=== PATIENT | female | born 1970 | race Two or more races ===

== ENCOUNTER 2024-02-23 13:04 | Outpatient (REF) | payer MEDICAID, SELFPAY ==
[2024-02-23 15:32] LABS: MANUAL DIFF FLAG NO
[2024-02-23 17:08] LABS: Basophils Percent Auto 0.4 % (0-2); Eosinophils Absolute Auto 0.1 X10*3/uL (0.0-0.4); Eosinophils Percent Auto 1.6 % (0-4); Hematocrit 40.2 % (37.0-47.0); Hemoglobin 12.9 g/dl (12.0-16.0); Imm Gran Abs Auto 0.04 X10*3/uL (0.00-0.03); Imm Gran Pct Auto 0.5 % (0.0-0.4); Lymphocytes Absolute Auto 2.5 X10*3/uL (1.2-4.9); Lymphocytes Percent Auto 33.8 % (20-40); Mean Corpuscular HGB Conc 32.1 g/dl (31.0-35.0); Mean Corpuscular Hemoglobin 28.2 pg (27.0-33.0); Mean Corpuscular Volume 87.8 fL (80.0-98.0); Mean Platelet Volume 11.5 fL (9.4-12.3); Monocytes Absolute Auto 0.5 X10*3/uL (0.1-1.2); Monocytes Percent Auto 6.8 % (2-11); Neutrophils Absolute Auto 4.3 x10*3/uL (2.0-8.3); Neutrophils Percent Auto 56.9 % (45-73); Platelet Count 226 X10*3/uL (160-400); Red Blood Count 4.58 X10*6/uL (4.20-5.50); Red Cell Distribution Width 14.8 % (11.0-16.0); White Blood Count 7.5 X10*3/uL (4.8-10.8)
[2024-02-23 17:25] LABS: Appearance Urine Clear; Color Urine Yellow; Glucose Urine UA Negative (Negative); Leukocyte Esterase Urine Trace (Negative); Nitrite Urine Negative (Negative); PH 5.5 (5.0-9.0); UMIC TRIGGER UA YES; Urine Blood Trace (Negative); Urine Ketones Negative (Negative); Urine Protein Negative (Neg-Trace)
[2024-02-23 17:29] LABS: Bacteria Urine None Seen (None Seen); Hyaline Casts Urine 0-2 /LPF (0-2); RBC Urine 0-2 /HPF (0-2); Squamous Epithelial Cell Urine 0-2 /HPF (0-2); WBC Urine 0-5 /HPF (0-5)
[2024-02-23 17:52] LABS: Alanine Aminotransferase 16 U/L (0-31); Aspartate Amino Transferase 20 U/L (5-31); C Reactive Protein 0.17 mg/dL (< or = 0.50); Estimated Glomerular Filt Rate > 60
[2024-02-23 18:09] LABS: Thyroid Stimulating Hormone 0.12 uIU/mL (0.32-4.0)
[2024-02-23 18:12] LABS: Rheumatoid Factor < 13.0 IU/mL (<15.0)
[2024-02-23 18:27] LABS: Erythrocyte Sedimentation Rate 20 MM/HR (0-20)
[2024-02-24 22:13] LABS: Anti DNA DS Antibody 1 IU/mL; JO 1 Antibody <1.0 NEG AI (<1.0 NEG); SM/Ribonucleoprotein Ab <1.0 NEG AI (<1.0 NEG); Smith Protein <1.0 NEG AI (<1.0 NEG)
[2024-02-25 08:18] LABS: Complement C3 148 mg/dL (83-193)
[2024-02-25 14:43] LABS: Anti Nuclear Antibody Screen NEGATIVE (NEGATIVE)
[2024-02-26 20:02] LABS: Cyclic Citrullinated Peptide <16 UNITS
== END 2024-02-23 13:05 | disposition home or self-care (01) ==
LOC: HO.LAB 13:04
PROVIDERS: PCP Physician Assistant; Visit Provider Internal Medicine Rheumatology
DX: M19.90 Unspecified osteoarthritis, unspecified site (principal); M33.13 Other dermatomyositis without myopathy; Z79.899 Other long term (current) drug therapy; Z79.60 Long term (current) use of unspecified immunomodulators and immunosuppressants
CPT/HCPCS: 36415; 81001; 82085; 82550; 82565; 84443; 84450; 84460; 85025; 85652; 86038; 86140; 86160; 86200; 86225; 86235; 86431

== ENCOUNTER 2024-02-23 13:04 | Outpatient (AMB) | payer MEDICAID, SELFPAY ==
[2024-02-23 13:15] VITALS: BP 124/78; PULSE 89; O2SAT 99; BMI 43.4
--- NOTE | 2024-02-23 13:15 | MHC.OFFVIS ---
Vital Signs 02/23/24 13:15 Height 5 ft 2 in Weight 237 lb 3.478 oz BMI 43.4 BP 124/78 Blood Pressure Location Lt brachial Position Sitting Pulse 89 Pulse Source Pulse Oximeter Pulse Oximetry (%) 99 Oxygen Delivery Method Room Air Intake Visit Reasons: Lupus Intake Note: Patient presents for follow up on lupus today,she is requesting mycophenalate, and hydroxychloroquine. Allergies demarol Allergy (Severe, Uncoded 02/23/24 13:18) Anaphylaxis HPI HPI Lupus: Details: She does not feel well in the last 6 months. Pain in back and left shoulder is not controlled. She is not getting relief with tylenol and ibuprofen 400mg-600mg. She is taking tramadol from the streets with benefit. She received bilateral trochanteric bursitis bilateral 3 months ago. She feels weak. She is having pain in her left shoulder with difficulty raising her arm. PCP gave patient course of prednisone 7 days. She is having dysphagia to solids. She is able to drink water fine. She has to drink a lot after she eats due to dysphagia. She is having rectal bleeding. PCPs working on scheduling colonoscopy. No fevers, new rash. She continues to have rash on her face. Denies urinary symptoms, dyspnea or Raynaud's phenomenon. She has been experiencing weakness in her arms and legs. She has gained weight. Review of Systems Const All systems reviewed & are unremarkable except as noted in HPI and below Physical Exam Vital Signs: Last Vital Signs Pulse 89 02/23/24 13:15 BP 124/78 02/23/24 13:15 Pulse Ox 99 02/23/24 13:15 Oxygen Delivery Method Room Air 02/23/24 13:15 BMI result Body Mass Index 43.4 Const Other: General: Comfortable CVS: RRR Respiratory: clear to auscultation bilaterally. Good respiratory effort Skin: No lesions seen MSK: Synovitis of bilateral 3rd MCPs, right 2nd and 3rd PIP. All MCPs and PIP knees are tender. Bilateral shoulder tenderness with limited abduction past 90 degrees of left shoulder. Left trochanteric bursa tenderness found. No tenderness of bilateral knees. She has weakness in upper extremities with 3/5 power shoulder abduction and adduction, elbow flexion and extension, left hip flexor. Rest of lower extremity is 5/5 power. Office Procedures AMB Joint Injection/Aspiration Joint Injection/Aspiration Details: Left trochanteric bursa Prep: site was prepped using aseptic technique Injected: 40 mg of, Kenalog, with 1 mL of and 1% plain lidocaine Procedure: The patient tolerated the procedure well Coding 30867 - Large joint Procedure code (CPT) selection complete Office Meds Kenalog 40 mg/mL suspension for injection Performing Provider: Mati Shields MD Performing Location: [facility] [place] [facility] Administered by: Mati Shields MD on 02/23/24 14:11 Dose Route Admin Location Dispensed Lot Number Expiration Date [facility] Protein Purification Scientist 40 mg intrabursal 1 mL [id number] [employer] lidocaine (PF) 10 mg/mL (1 %) injection solution Performing Provider: Mati Shields MD Performing Location: [facility] [place] [facility] Administered by: Mati Shields MD on 02/23/24 14:11 Dose Route Admin Location Dispensed Lot Number Expiration Date [facility] Protein Purification Scientist 10 mg Infiltration 2 mL [id number] [facility] Assessment & Plan Assessment & Plan (1) Dermatomyositis: Comment: Cutaneous manifestation of dermatomyositis is not controlled on therapy with hydroxychloroquine and mycophenolate mofetil. She is requiring multiple prednisone courses to control her disease. She has dysphagia to solids. I will obtain barium swallow to evaluate for esophageal dysmotility that is associated with dermatomyositis. She also has developed inflammatory arthritis involving small joints in her hands. In the past she had initial diagnosis of lupus. I will order labs to evaluate for lupus disease activity, antibodies to assess for inflammatory arthritis, muscle enzymes and thyroid function to obtain full picture of her disease process contributing to recurrent cutaneous manifestations, dysphagia, weakness, inflammatory arthritis, and weight gain. Code(s): M33.13 - Other dermatomyositis without myopathy Category: Medical Plan: Requesting medical records from [facility]. I will need to confirm her medication doses as she is currently being under dosed with mycophenolate and hydroxychloroquine. There is room to increase dose. Continue hydroxychloroquine 200 mg daily Continue mycophenolate mofetil 500 mg twice a day She will return tomorrow for a left shoulder cortisone injection after obtaining x-ray at [facility] today Labs for disease and drug monitoring ordered Barium swallow ordered Request records from [facility] (2) Other terminal gauger (current) drug therapy: Code(s): Z79.899 - Other alf (current) drug therapy Category: Medical Plan: See above (3) Inflammatory arthritis: Comment: New onset. I have initiated workup for inflammatory arthritis with labs. Code(s): M19.90 - Unspecified osteoarthritis, unspecified site Category: Medical Plan: Labs ordered (4) Trochanteric bursitis, left hip: Comment: Left trochanteric bursitis recurrent Code(s): M70.62 - Trochanteric bursitis, left hip Category: Medical Plan: Left trochanteric bursa cortisone injection given this visit (5) Left shoulder pain: Comment: Chronic. I suspect chronic rotator cuff tendinopathy. I will obtain x-ray for further evaluation for joint pathology contributing. Code(s): M25.512 - Pain in left shoulder Category: Medical Qualifiers: Chronicity: chronic Qualified Code(s): M25.512 - Pain in left shoulder; G89.29 - Other chronic pain Plan: Left shoulder x-ray ordered at [facility] Return to clinic tomorrow for left shoulder cortisone injection I advised her not to obtain any medication/drug from the streets. Orders: Orders Complement C4 Today M33.13 - Other dermatomyositis without myopathy, Z79.899 - Other terminal gauger (current) drug therapy C Reactive Protein Today M33.13 - Other dermatomyositis without myopathy, Z79.899 - Other terminal gauger (current) drug therapy Alanine Aminotransferase Today Z79.60 - long term (current) use of unspecified immunomodulators and immunosuppressants Aspartate Amino Transferase Today Z79.60 - shelter (current) use of unspecified immunomodulators and immunosuppressants Complete Blood Count Auto Diff Today Z79.60 - shelter (current) use of unspecified immunomodulators and immunosuppressants Creatinine Today Z79.60 - long term (current) use of unspecified immunomodulators and immunosuppressants Creatine Kinase Total Today M33.13 - Other dermatomyositis without myopathy, Z79.899 - Other terminal gauger (current) drug therapy XR shoulder LT min 2V Today Z79.899 - Other alf (current) drug therapy [place] barium swallow Today M33.13 - Other dermatomyositis without myopathy Anti Extractable Nuclear Ag Today M19.90 - Unspecified osteoarthritis, unspecified site, M33.13 - Other dermatomyositis without myopathy Cyclic Citrullinated Peptide Today M19.90 - Unspecified osteoarthritis, unspecified site SHELBY 1 Antibody Today M33.13 - Other dermatomyositis without myopathy Rheumatoid Factor Today M19.90 - Unspecified osteoarthritis, unspecified site ALONSO Reflex Titer and Pattern Today M19.90 - Unspecified osteoarthritis, unspecified site, M33.13 - Other dermatomyositis without myopathy AMB Joint Injection/Aspiration Today M70.62 - Trochanteric bursitis, left hip Complement C3 Today M33.13 - Other dermatomyositis without myopathy, Z79.899 - Other terminal gauger (current) drug therapy Erythrocyte Sedimentation Rate Today M33. - Other dermatomyositis without myopathy, Z79.899 - Other terminal gauger (current) drug therapy Thyroid Stimulating Hormone Today M33. - Other dermatomyositis without myopathy, Z79.899 - Other terminal gauger (current) drug therapy Aldolase Today M33. - Other dermatomyositis without myopathy, Z79.899 - Other terminal gauger (current) drug therapy Anti DNA DS Antibody Today M33. - Other dermatomyositis without myopathy UA w Microscopic Today M33. - Other dermatomyositis without myopathy, Z79.899 - Other terminal gauger (current) drug therapy Coding Level of Care Code Est Pt Level 4 (55863) Complex EM visit Add On G2211 Diagnoses Dermatomyositis M33.13 Other terminal gauger (current) drug therapy Z79.899 Inflammatory arthritis M19.90 Trochanteric bursitis, left hip M70.62 Chronic left shoulder pain M25.512; G89.29 Chronicity: chronic CPT Codes Coding - 03096 Large joint: 91061 - Large joint ([id number])
== END 2024-02-23 14:00 | disposition home or self-care (01) ==
PROVIDERS: Visit Provider Internal Medicine Rheumatology
DX: M33.13 Other dermatomyositis without myopathy (principal); Z79.899 Other long term (current) drug therapy; M19.90 Unspecified osteoarthritis, unspecified site; M70.62 Trochanteric bursitis, left hip; M25.512 Pain in left shoulder; G89.29 Other chronic pain
CPT/HCPCS: 20610; 99214

== ENCOUNTER 2024-02-24 14:28 | Outpatient (AMB) | payer MEDICAID, SELFPAY ==
[2024-02-24 13:45] VITALS: BP 140/80; PULSE 93; O2SAT 99; BMI 43.3
--- NOTE | 2024-02-24 13:45 | A.OFFVIS_ITS ---
Vital Signs 02/24/24 13:45 Height 5 ft 2 in Weight 237 lb BMI 43.3 BP 140/80 H Blood Pressure Location Lt brachial Position Sitting Pulse 93 Pulse Source Pulse Oximeter Pulse Oximetry (%) 99 Oxygen Delivery Method Room Air Intake Visit Reasons: Shoulder Injection Intake Note: Patient presents for left shoulder injection. Allergies demarol Allergy (Severe, Uncoded 02/24/24 13:47) Anaphylaxis HPI HPI Shoulder Injection: Details: Persistent left shoulder pain. SHe continues to have lower back pain. PCP prescribed ibuprofen, cyclobenzaprine and tylenol without benefit. She has urinary frequency. Denies fevers. Review of Systems Const All systems reviewed & are unremarkable except as noted in HPI and below Physical Exam Vital Signs: Last Vital Signs Pulse 93 02/24/24 13:45 BP 140/80 H 02/24/24 13:45 Pulse Ox 99 02/24/24 13:45 Oxygen Delivery Method Room Air 02/24/24 13:45 BMI result Body Mass Index 43.3 Const Other: General: Comfortable CVS: RRR Respiratory: clear to auscultation bilaterally. Good respiratory effort Skin: No lesions seen MSK: Bilateral shoulder tenderness with limited abduction past 90 degrees of left shoulder. Tender lumbar spinous process and paraspinal muscles. Office Procedures AMB Joint Injection/Aspiration Joint Injection/Aspiration Details: left shoulder Prep: site was prepped using aseptic technique Injected: 40 mg of, Kenalog, with 1 mL of and 1% plain lidocaine Procedure: The patient tolerated the procedure well Coding 07016 - Large joint Procedure code (CPT) selection complete Office Meds Kenalog 40 mg/mL suspension for injection Performing Provider: Mati Shields MD Performing Location: [facility] [place] [facility] Administered by: Mati Shields MD on 02/24/24 16:18 Dose Route Admin Location Dispensed Lot Number Expiration Date [facility] Design Project Manager 40 mg intra-articular 1 mL [id number] [employer] lidocaine (PF) 10 mg/mL (1 %) injection solution Performing Provider: Mati Shields MD Performing Location: [facility] [place] [facility] Administered by: Mati Shields MD on 02/24/24 16:18 Dose Route Admin Location Dispensed Lot Number Expiration Date [facility] Design Project Manager 10 mg Infiltration 2 mL [id number] [facility] Assessment & Plan Assessment & Plan (1) Left shoulder pain: Comment: Chronic likely due to rotator cuff tendinopathy. X-ray revealed mild AC joint arthritis. Code(s): M25.512 - Pain in left shoulder Category: Medical Qualifiers: Chronicity: chronic Qualified Code(s): M25.512 - Pain in left shoulder; G89.29 - Other chronic pain Plan: left shoulder cortisone injection given this visit (2) Urinary frequency: Comment: UA reveals trace hematuria and +leukocyte esterase concerning for possible UTI. Code(s): R35.0 - Frequency of micturition Category: Medical Plan: urine culture ordered (3) Chronic low back pain without sciatica: Comment: Due to myofascial strain Code(s): M54.50 - Low back pain, unspecified; G89.29 - Other chronic pain Category: Medical Qualifiers: Back pain laterality: bilateral Qualified Code(s): M54.50 - Low back pain, unspecified; G89.29 - Other chronic pain Plan: Baclofen 5mg qhs PRN prescribed (4) Inflammatory arthritis: Comment: New onset. I have initiated workup for inflammatory arthritis with labs. Code(s): M19.90 - Unspecified osteoarthritis, unspecified site Category: Medical Plan: lab results pending (5) Abnormal thyroid stimulating hormone (TSH) level: Comment: on recent labs TSH is low 0.12. She is on levothyroxine. Code(s): R79.89 - Other specified abnormal findings of blood chemistry Category: Medical Plan: Follow-up with PCP for dose adjustment of levothyroxin Orders: Orders Urine Culture Today R35.0 - Frequency of micturition AMB Joint Injection/Aspiration Today G89.29 - Other chronic pain, M25.512 - Pain in left shoulder Medications: New baclofen 5 mg PO BEDTIME PRN 30 tabs 2RF muscle spasm Coding Level of Care Code Est Pt Level 4 (20838) Complex EM visit Add On G2211 Diagnoses Chronic left shoulder pain M25.512; G89.29 Chronicity: chronic Urinary frequency R35.0 Chronic bilateral low back pain without sciatica M54.50; G89.29 Back pain laterality: bilateral Inflammatory arthritis M19.90 Abnormal thyroid stimulating hormone (TSH) level R79.89 CPT Codes Coding - 56411 Large joint: 47663 - Large joint ([id number])
== END 2024-02-24 15:32 | disposition home or self-care (01) ==
LOC: HO.RHES 14:28
PROVIDERS: PCP Physician Assistant; Visit Provider Internal Medicine Rheumatology
DX: M19.012 Primary osteoarthritis, left shoulder (principal); G89.29 Other chronic pain; R35.0 Frequency of micturition; M54.50 Low back pain, unspecified; R79.89 Other specified abnormal findings of blood chemistry
CPT/HCPCS: 20610; 99214

== ENCOUNTER → 2024-02-24 14:28 | Outpatient (BNVA) | payer MEDICAID, SELFPAY | PROVIDERS: PCP Physician Assistant; Visit Provider Internal Medicine Rheumatology | DX: M25.512 Pain in left shoulder (principal); G89.29 Other chronic pain; M54.50 Low back pain, unspecified; M19.90 Unspecified osteoarthritis, unspecified site; R79.89 Other specified abnormal findings of blood chemistry; R35.0 Frequency of micturition | CPT/HCPCS: 20610; 99212; J2003; J3300 ==

== ENCOUNTER 2024-02-25 13:04 | Outpatient (REF) | payer MEDICAID, SELFPAY | END 2024-02-25 13:05 | disposition home or self-care (01) | LOC: HO.HMGCLDS 13:04 | PROVIDERS: PCP Physician Assistant; Visit Provider Internal Medicine Rheumatology | DX: R35.0 Frequency of micturition (principal) | CPT/HCPCS: 87086 ==

== ENCOUNTER 2024-05-24 13:09 | Outpatient (REF) | payer MEDICAID, SELFPAY ==
[2024-05-24 18:50] LABS: MANUAL DIFF FLAG NO
[2024-05-24 19:06] LABS: Basophils Percent Auto 0.6 % (0-2); Eosinophils Absolute Auto 0.1 X10*3/uL (0.0-0.4); Eosinophils Percent Auto 2.6 % (0-4); Hematocrit 40.3 % (37.0-47.0); Imm Gran Abs Auto 0.01 X10*3/uL (0.00-0.03); Imm Gran Pct Auto 0.2 % (0.0-0.4); Lymphocytes Absolute Auto 2.3 X10*3/uL (1.2-4.9); Lymphocytes Percent Auto 42.8 % (20-40); Mean Corpuscular HGB Conc 32.3 g/dl (31.0-35.0); Mean Corpuscular Volume 86.9 fL (80.0-98.0); Mean Platelet Volume 12.9 fL (9.4-12.3); Monocytes Absolute Auto 0.5 X10*3/uL (0.1-1.2); Monocytes Percent Auto 8.6 % (2-11); Neutrophils Absolute Auto 2.4 x10*3/uL (2.0-8.3); Neutrophils Percent Auto 45.2 % (45-73); Platelet Count 173 X10*3/uL (160-400); Red Blood Count 4.64 X10*6/uL (4.20-5.50); Red Cell Distribution Width 14.6 % (11.0-16.0); White Blood Count 5.4 X10*3/uL (4.8-10.8)
[2024-05-24 19:19] LABS: Alanine Aminotransferase 35 U/L (0-31); Aspartate Amino Transferase 28 U/L (5-31); Estimated Glomerular Filt Rate > 60
[2024-05-24 19:59] LABS: Erythrocyte Sedimentation Rate 14 MM/HR (0-20)
[2024-05-25 08:45] LABS: HBS Num1 0.55 mIU/mL (0-7.99); HBc Num1 0.09 S/CO (0.00-0.79); HBsAGNum1 0.31 S/CO (0.00-0.99); Hepatitis B Core Antibody Nonreactive (Nonreactive); Hepatitis B Surface Antigen Negative (Negative); ~HepC Num1 0.11 S/CO (0.00-0.79); ~Hepatitis B Surface Antibody NONREACTIVE (Nonreactive); ~Hepatitis C Antibody Nonreactive (Nonreactive)
[2024-05-27 06:19] LABS: TS Negative Control Passed; TS Panel A 0; TS Panel B 0; TS Positive Control Passed; TSpotTB Negative (Negative)
[2024-05-29 15:49] LABS: Aldolase 4.8 U/L (<=8.1)
== END 2024-05-24 13:10 | disposition home or self-care (01) ==
LOC: HO.HKASLDS 13:09
PROVIDERS: PCP Physician Assistant; Visit Provider Internal Medicine Rheumatology
DX: M25.512 Pain in left shoulder (principal); G89.29 Other chronic pain; Z79.60 Long term (current) use of unspecified immunomodulators and immunosuppressants; Z79.899 Other long term (current) drug therapy; M33.13 Other dermatomyositis without myopathy; M19.90 Unspecified osteoarthritis, unspecified site; Z11.1 Encounter for screening for respiratory tuberculosis
CPT/HCPCS: 20610; 36415; 82085; 82550; 82565; 84450; 84460; 85025; 85652; 86481; 86704; 86706; 86803; 87340; 99212; J2003; J3300

== ENCOUNTER 2024-05-24 13:09 | Outpatient (AMB) | payer MEDICAID, SELFPAY ==
--- NOTE | 2024-05-24 13:12 | MHC.OFFVIS ---
Vital Signs 05/24/24 13:15 Height 5 ft 2 in Weight 229 lb 8.019 oz BMI 42.0 BP 130/80 Blood Pressure Location Rt brachial Position Sitting Pulse 84 Pulse Source Pulse Oximeter Pulse Oximetry (%) 99 Oxygen Delivery Method Room Air Intake Visit Reasons: Follow Up 3mo Intake Note: Patient presents for left shoulder injection. Allergies demarol Allergy (Severe, Uncoded 02/24/24 13:47) Anaphylaxis HPI HPI Follow Up 3mo: Details: Shoulder pain return to few days ago. She had benefit with last cortisone injection. Rash has improved. She continues to have pruritus on her face. Joint pain in her hands and extremities has improved. She reports compliance on hydroxychloroquine and mycophenolate mofetil. At the [facility] in 2023 she was started on methotrexate. Methotrexate replace mycophenolate mofetil. She was on it for 2 months. Prescription was not further refilled for patient during my transition to [facility] [facility]. She reports that she tolerated methotrexate well. [facility] Medical History Recurrent dislocation of right upper arm Review of Systems Const All systems reviewed & are unremarkable except as noted in HPI and below Physical Exam Vital Signs: Last Vital Signs Pulse 84 05/24/24 13:15 BP 130/80 05/24/24 13:15 Pulse Ox 99 05/24/24 13:15 Oxygen Delivery Method Room Air 05/24/24 13:15 BMI result Body Mass Index 42.0 Const Other: General: Comfortable CVS: RRR Respiratory: clear to auscultation bilaterally. Good respiratory effort Skin: No lesions seen MSK: Bilateral shoulder tenderness with limited abduction past 160 degrees of left shoulder. Internal and external rotation of left shoulder is painful but full. Tender PIP bilaterally. No synovitis. Office Procedures AMB Joint Injection/Aspiration Joint Injection/Aspiration Details: Left shoulder joint Prep: site was prepped using aseptic technique Injected: 40 mg of, Kenalog, with 1 mL of and 1% plain lidocaine Procedure: The patient tolerated the procedure well. Postprocedure protocol was discussed with patient. Coding 58885 - Large joint Procedure code (CPT) selection complete Office Meds lidocaine (PF) 10 mg/mL (1 %) injection solution Performing Provider: Mati Shields MD Performing Location: [facility] [place] [facility] Administered by: Mati Shields MD on 05/25/24 21:50 Dose Route Admin Location Dispensed Lot Number Expiration Date [facility][NOTE 3] Optical Scientist 10 mg Infiltration 2 mL [id number] [employer] Kenalog 40 mg/mL suspension for injection Performing Provider: Mati Shields MD Performing Location: [facility] [place] [facility] Administered by: Mati Shields MD on 05/25/24 21:50 Dose Route Admin Location Dispensed Lot Number Expiration Date [facility][NOTE 3] Optical Scientist 40 mg intra-articular 1 mL [id number] [employer] Assessment & Plan Assessment & Plan (1) Dermatomyositis: Comment: Cutaneous manifestation of dermatomyositis is not completely controlled on therapy with hydroxychloroquine and mycophenolate mofetil. She continues to have pruritus and rash on her face. Inflammatory arthritis in her hands has resolved. She reports compliance on her regimen of hydroxychloroquine and mycophenolate mofetil. In 2023 she was on methotrexate and hydroxychloroquine combination. But she was only on methotrexate for 2 months. Not enough time to assess full effectiveness. She is willing to try methotrexate again. Code(s): M33.13 - Other dermatomyositis without myopathy Category: Medical Plan: Labs for disease and drug monitoring ordered After lab results are back I will send prescription for methotrexate 15 mg once weekly and folic acid 1 mg daily. Methotrexate and folic acid we will replace mycophenolate mofetil. Continue hydroxychloroquine 200 mg twice a day as it is better tolerated for patient. Eye exam OCT 04/2022. No visual field test. I am requesting patient call [facility] for eye exam for visual field testing and OCT exam. Requesting medical records from [facility] Return to clinic in 3 months (2) Inflammatory arthritis: Comment: New onset 02/2024. Resolved on current exam. Labs revealed negative ALONSO, anti CCP antibody, rheumatoid factor, lupus specific markers anti Joseph antibody, double-stranded DNA and complements. Code(s): M19.90 - Unspecified osteoarthritis, unspecified site Category: Medical Plan: I will monitor clinically (3) Left shoulder pain: Comment: Chronic likely due to rotator cuff tendinopathy. X-ray revealed mild AC joint arthritis. Code(s): M25.512 - Pain in left shoulder Category: Medical Qualifiers: Chronicity: chronic Qualified Code(s): M25.512 - Pain in left shoulder; G89.29 - Other chronic pain Plan: Patient received right shoulder cortisone injection I recommended that she call office when shoulder pain returns to start physical therapy Return to clinic in 3 months Orders: Orders Aspartate Amino Transferase 05/24/24 Z79.60 - continuous churn buttermaker (current) use of unspecified immunomodulators and immunosuppressants Erythrocyte Sedimentation Rate 05/24/24 Z79.899 - Other detention (current) drug therapy Aldolase 05/24/24 M19.90 - Unspecified osteoarthritis, unspecified site, M33.13 - Other dermatomyositis without myopathy Hepatitis B,C Profile 05/24/24 M33.13 - Other dermatomyositis without myopathy Alanine Aminotransferase 1 Month Z79.60 - halfway (current) use of unspecified immunomodulators and immunosuppressants Aspartate Amino Transferase 1 Month Z79.60 - continuous churn buttermaker (current) use of unspecified immunomodulators and immunosuppressants Complete Blood Count Auto Diff 1 Month Z79.60 - halfway (current) use of unspecified immunomodulators and immunosuppressants Alanine Aminotransferase 05/24/24 Z79.60 - halfway (current) use of unspecified immunomodulators and immunosuppressants Complete Blood Count Auto Diff 05/24/24 Z79.60 - continuous churn buttermaker (current) use of unspecified immunomodulators and immunosuppressants Creatinine 05/24/24 Z79.60 - halfway (current) use of unspecified immunomodulators and immunosuppressants Creatine Kinase Total 05/24/24 M33.13 - Other dermatomyositis without myopathy T Spot TB 05/24/24 M33.13 - Other dermatomyositis without myopathy Creatinine 1 Month Z79.60 - continuous churn buttermaker (current) use of unspecified immunomodulators and immunosuppressants AMB Joint Injection/Aspiration 05/24/24 G89.29 - Other chronic pain, M25.512 - Pain in left shoulder Coding Level of Care Code Est Pt Level 4 (11561) Complex EM visit Add On G2211 Diagnoses Dermatomyositis M33.13 Inflammatory arthritis M19.90 Chronic left shoulder pain M25.512; G89.29 Chronicity: chronic CPT Codes Coding - 27433 Large joint: 71400 - Large joint ([id number])
[2024-05-24 13:15] VITALS: BP 130/80; PULSE 84; O2SAT 99; BMI 42.0
== END 2024-05-24 13:43 | disposition home or self-care (01) ==
LOC: HO.RHES 13:10
PROVIDERS: PCP Physician Assistant; Visit Provider Internal Medicine Rheumatology
DX: M33.13 Other dermatomyositis without myopathy (principal); M19.012 Primary osteoarthritis, left shoulder; M25.512 Pain in left shoulder; G89.29 Other chronic pain
CPT/HCPCS: 20610; 99214

== ENCOUNTER 2024-06-28 13:31 | Outpatient (REF) | payer MEDICAID, SELFPAY ==
--- OUTSIDE RECORDS SUMMARY | 2024-06-28 16:00 | XMS_ITS | Clinical Summary ---
Author Organization [facility] Address [address] [place] [phone] Care Team Providers Care Human Resources Operations Specialist Name Role Phone Ivette Resendez Primary Care Provider [phone] Surgical History Surgery Date Site/Laterality Comments CHOLECYSTECTOMY PROCEDURE: [place] LAPAROSCOPY SURG CHOLECYSTECTOMY Medical History Medical History Date Comments Hypothyroidism DX:Hypothyroidis m Migraine with aura, not intractable DX:Migraine with aura, not intractable Systemic lupus erythematosus (SLE) in adult (CMS/HCC V24, CMS/HCC V28) 02/13/2017 DX:Systemic lupus brittney thematosus (SLE) in adult (HCC) Shoulder joint painful on mo vement, left 02/13/2017 DX:Shoulder joint painful on movement, left Anxiety DX:Anxiety Depression DX:Depression Family History Medical History Relation Name Comments Breast cancer Aunt m 50 mother's siste r, dx'd in her 60's Heart attack Father DMII, HTN Hypertension Mother DMII Other: myasenia gravis Son Cancer of Small Bowel Neg Hx Colon cancer Neg Hx Kidney cancer Neg Hx Ovarian cancer Neg Hx Pancreatic cancer Neg Hx Uterine cancer Neg Hx Relation Name Status Comments Aunt m 50 Father Mother Alive Son Social History Tobacco Use Types Packs/Day Years Used Date Smoking Tobacco: Former Smokeless Tobacco: Never Alcohol Use Standard Drinks/Week Comments No 0 (1 standard drink = 0.6 oz pur e alcohol) Comments Unknown Sex and Gender Information Value Date Recorded Sex Assigned at Not on file Legal Sex Female 5:36 AM EST Gender Identity Not on file Sexual Orientation Not on file Obstetrics History Plan of Treatment Health Maintenance Due Date Last Done Comments COVID-19 Vaccine (#1) 1973 Hepatitis B Vaccines (1 of 3 - 19+ 3-dose series) 1987 Pneumococcal Vaccine: 50+ Years (1 of 2 - PCV) 1987 Pneumococcal Vaccine: Pediatrics (0 to 5 Years) and At-Risk Patients (6 to 64 Years) (1 of 2 - PCV) 1987 Zoster Vaccines (1 of 2) 1987 Colorectal Cancer Screening: Colonoscopy 02/15/2022 Depression Screening 02/15/2022 HIV Screening 02/15/2022 Hepatitis C Screening 02/15/2022 Social Influencers of Health Screening 02/15/2022 Cervical Cancer Screening: P ap Smear 06/12/2023 06/11/2020 Breast Cancer Screening 11/09/2023 11/09/19 22, 07/20/2020 DTaP,Tdap,and Td Vaccines (2 - Td or Tdap) 10/19/2024 10/19/2014 Influenza Vaccine (Season Ended) 2024 HIB Vaccines Aged Out No longer eligi ble based on patient's age to complete this topic HPV Vaccines Aged Out No longer eligi ble based on patient's age to complete this topic Hepatitis A Vaccines Aged Out No long er eligible based on patient's age to complete this topic IPV Vaccines Aged Out No longer eligi ble based on patient's age to complete this topic MMR Vaccines Aged Out No longer eligi ble based on patient's age to complete this topic Meningococcal ACWY Vaccine Aged Out N o longer eligible based on patient's age to complete this topic Meningococcal B Vaccine Aged Out No l onger eligible based on patient's age to complete this topic RSV Immunization Patients Under 20 months Aged Out No longer eligible b ased on patient's age to complete this topic Varicella Vaccines Aged Out No longer eligible based on patient's age to complete this topic Procedures Procedure Name Priority Date/Time Associated Diagnosis Comments SCREENING MAMMOGRAPHY BI 2-VIEW BREAST INC CAD Routine 11/08/2021 3:39 PM EDT Encounter for screening mammogram for malignant neoplasm of breast PAP SMEAR Routine 06/11/2020 from Last 3 Months or Most Recently Relevant to Health Maintenance Results * SCREENING MAMMOGRAPHY BI 2-VIEW BREAST INC CAD (11/08/2021 3:39 PM EDT) Anatomical Region Laterality Modality Radiographic Pamela ging 07/20/2020 3:57 PM EDT Narrative 11/12/2021 9:32 AM EDT This is a summary report. The complete report is available in the patient's medical record. If you cannot access the medical record, please contact the sending organization for a detailed fax or copy. Exam: Screening mammogram Findings: Digital bilateral full-field screening mammography is performed with tomosynthesis and interpreted with the aid of computer-aided detection. ??Comparison is made with 07/20/2020. Breast parenchyma is composed of scattered fibroglandular densities. ??No new suspicious mass, architectural distortion, or suspicious calcifications. Impression: No mammographic evidence of malignancy. BI-RADS 1 - negative Procedure Note Marianne Simental MD - 02/25/2022 This is a summary report. The complete report is available in thepatient's medical record. If you cannot access the medical record, pleasecontact the sending organization for a detailed fax or copy. Exam: Screening mammogram Findings: Digital bilateral full-field screening mammography is performedwith tomosynthesis and interpreted with the aid of computer-aideddetection. Comparison is made with 07/20/2020. Breast parenchyma is composed of scattered fibroglandular densities. Nonew suspicious mass, architectural distortion, or suspiciouscalcifications. Impression: No mammographic evidence of malignancy. BI-RADS 1 - negative Derrell Luna DO IMG XR PROCEDURES Final Resul t * Pap smear (06/11/2020) 06/11/2020 Narrative HISTORICAL TESTING LAB RESULTING AGENCY - 06/18/2020 2:05 PM EDT [id number] THINPREP PAP, IMAGED: NEGATIVE FOR SQUAMOUS INTRAEPITHELIAL LESION AND MALIGNANCY . REACTIVE CELLULAR CHANGES. ENDOMETRIAL CELLS ARE PRESENT. ALEX KEMP , CT(ASCP) (CASE SCREENED 06 14 2020) KAY DU M.D. , PATHOLOGIST (CASE ELECTRONICALLY SIGNED 06 15 2020) RESULT OF APTIMA HIGH RISK HPV ASSAY: HIGH RISK HPV: ??POSITIVE (SEROTYPES 16,18,31,33,35,39,45,51,52,56,58,59,66,68) RESULTS OF APTIMA HPV 16 AND 18/45 GENOTYPE ASSAY: HPV 16: ??NEGATIVE HPV 18/45: ??NEGATIVE COMPLETED ON 2020-06-14 ADEQUACY: SATISFACTORY ENDOCERVICAL/TRANSFORMATION ZONE COMPONENT ABSENT. SOURCE: THINPREP PAP HPV ANY DX: ??REFLEX 16 AND 18, CERVICAL, IMAGED CLINICAL INFORMATION: HPV ANY DIAGNOSIS. POS 2019 LSIL, BX NEG, LMP 05/11/20, Z12.4 us [facility] CYTOLOGY ORDERABLES Fin al Result HISTORICAL TESTING LAB RESULTING AGENCY from Last 3 Months or Most Recently Relevant to Health Maintenance Care Teams Human Resources Operations Specialist Relationship Specialty Start Date End Date Ivette Resendez PA [facility] [place] [phone] PCP - General Internal Medicine 02/13/17
--- OUTSIDE RECORDS SUMMARY | 2024-06-28 16:00 | XMS_ITS | Clinical Summary ---
Author Organization [facility] Address [address] [place] [address] Care Team Providers Care Expeller Operator Name Role Phone Ivette Resendez PA-C Primary Care Provider [phone] Source Comments PLEASE NOTE, if this patient is a minor, it may be UNLAWFUL to discuss sensitive information that is contained in these records (such as FAMILY PLANNING, MENTAL HEALTH or SUBSTANCE ABUSE) with the minor patient's parent or other person without the patient's specific authorization.[facility] Allergies Active Allergy Reactions Criticality Noted Date Comments Meperidine Itching Medications miscellaneous medical supply miscIndications: Complicated grieving by miscellaneous route 2 (two) times daily Ensure, disp60/month, dx weight loss 220 lbs 01/2018 to 164 lbs 01/17/2020, grief, poor appetite, lupus 60 Each 11 020 Active docusate sodium (COLACE) 100 mg capsuleIndicatio ns:Functional constipation TAKE 2 CAPSULES BY MOUTH EVERY NIGHT AT BEDTIME 60 Capsule 5 022 Active folic acid (FOLVITE) 1 mg tablet TAKE 1 TABLET BY MOUTH EVERY DAY 30 Tablet 2 024 Active VENTOLIN HFA 90 mcg/actuation inhalerIndicatio ns:Wheezing INHALE 2 PUFFS INTO THE LUNGS EVERY 4 HOURS NEEDED FOR SHORTNESS OF BREATH OR WHEEZING 90 g 1 024 Active lidocaine (LIDODERM) 5 % patchIndications :Lumbar radiculopathy APPLY 1 PATCH TO TO THE AFFECTED AREA FOR 12 HOURS. THEN GO WITHOUT FOR 12 HOURS. 30 Patch 4 024 Active pregabalin (LYRICA) 150 mg capsuleIndicatio ns:Post herpetic neuralgia TAKE 1 CAPSULE BY MOUTH TWICE DAILY. DISCONTINUE GABAPENTIN 60 Capsule 3 025 Active traMADoL (ULTRAM) 50 mg tabletIndication s:Systemic lupus erythematosus, unspecified SLE type, unspecified organ involvement status ([facility]),Chroni c left-sided low back pain with bilateral sciatica Take 1 Tablet by mouth 2 (two) times daily as needed for pain 30 Tablet 025 Active predniSONE (DELTASONE) 10 mg tabletIndication s:Systemic lupus erythematosus, unspecified SLE type, unspecified organ involvement status ([facility]) 3 tabs po daily for 1 week, then 2 tabs po daily for 1 week then 1 tab po daily for 1 week then 0.5 tabs po daily for 1 week 46 Tablet 025 Active desvenlafaxine succinate (PRISTIQ) 100 mg 24 hr tablet TAKE 1 TABLET BY MOUTH EVERY DAY FOR MAJOR DEPRESSION 30 Tablet 5 025 Active clonazePAM (KLONOPIN) 0.5 mg tablet Take 1 Tablet by mouth 2 (two) times daily as needed for anxiety for anxiety 60 Tablet 1 025 Active QUEtiapine (SEROQUEL) 25 mg tablet TAKE 1 TO 2 TABLETS BY MOUTH AT BEDTIME 60 Tablet 5 025 Active omeprazole (PRILOSEC) [address] capsuleIndicatio ns:Dyspepsia TAKE 1 CAPSULE BY MOUTH EVERY MORNING BEFORE BREAKFAST 90 Capsule 1 025 Active levothyroxine 125 mcg tabletIndication s:Hypothyroidism , unspecified type TAKE 1 TABLET BY MOUTH EVERY MORNING BEFORE BREAKFAST 90 Tablet 025 Active levothyroxine 125 mcg tabletIndication s:Hypothyroidism , unspecified type Take 1 Tablet by mouth every morning before breakfast 90 Tablet 024 2024 Discontinued Active Problems Problem Noted Date Diagnosed Date Bulging lumbar disc 03/11/2024 Postmenopausal bleeding 02/10/2024 Assessment & Plan (02/10/2024 9:59 AM EST): - Preop Diagnosis: PMB, ASCUS/HR HPV+ - Planned procedure: Hysteroscopy, D&C, Colposcopy, possible cervical biopsies/ECC - (x) Surgical Consent signed - (x) Booking request submitted - ( ) Pre-op orders pending - Preop ABX: None - Sx Prophylaxis: SCDs - NPO 12 hours prior to surgery - Post-op appt pending surgery date - Surgical scrubs given today - (X) Pre-op surgical packet - Post Operative Considerations: - Hospitalization: 0 night - Discussed pain management: Tylenol/Ibuprofen scheduled q 6hours - Discussed bowel regimen with Miralax and docusate - Discussed bathing restriction (no tub baths, showers OK) until clear by doctor - Discussed return to normal activities in: 4 weeks - Discussed postoperative appointment in: 2 weeks - Discussed vaginal rest for: 4 weeks - Discussed driving restrictions All questions answered. Ovarian cyst 08/29/2022 08/29/2022 Post herpetic neuralgia 07/15/2022 LSIL with high risk HPV 11/202012/06/2020 Major depressive disorder, r ecurrent episode, severe with anxious distress ([facility]) 11/02/2019 Thickened endometrium 05/202002/13/2016 Overview (05/21/2020): Result type: US Pelvic Transvaginal Result date: May 18, 2020 17:53 EST Result status: Auth (Verified) Result title: US Pelvic Transvaginal Performed by: Fletcher Meza DO on May 18, 2020 18:05 EST Verified by: Fletcher Meza DO on May 18, 2020 18:05 EST Encounter info: [id number], [facility] [place], One Time OP, 05/18/2020 - 05/18/2020 * Final Report * Reason For Exam DISFUCTIONAL UTERINE BLEEDING RESULT: US Pelvic Transvaginal US Pelvic Transabdominal, US Pelvic Transvaginal INDICATION/CLINICAL QUESTION: Dysfunctional uterine bleeding. Patient Age 50 years COMPARISON: None TECHNIQUE: Transabdominal and transvaginal ultrasound with grayscale and color Doppler analysis. FINDINGS: UTERUS: Size: 10.2 x 5.8 x 7.7 cm, volume 239 cc. Endometrial thickness: 2.0 cm. Morphology: Heterogeneously enlarged endometrium with abnormal internal vascularity. RIGHT OVARY: Size: 5.6 x 2.8 x 4.7 cm, volume 38 cc. Morphology: Anechoic cyst measuring up to 3.5 cm. Normal color Doppler appearance. LEFT OVARY: Size: 2.8 x 1.6 x 2.5 cm, volume 6 cc. Morphology: Normal echotexture. No pathologic cysts or mass. Normal color Doppler appearance. ADNEXA: Normal. No adnexal masses or fluid collections. IMPRESSION: 1. Abnormal heterogeneous thickening of the endometrium with hypervascularity. Appearance is concerning for underlying neoplastic process, less likely underlying polyp, and gynecologic consultation is recommended. 2. Normal sonographic appearance of the ovaries. A Yellow message has been communicated via the [employer] on 05/18/2020 6:05 PM, Message ID [id number]. WSN: [id number] Ordering Physician: Ivette Resendez Signature Line Dictated By: Fletcher Meza DO Dictated Date/Time: 05/18/20 6:05 pm Reviewed By: Fletcher Meza DO Signed By: Fletcher Meza DO Signed Date/Time: 05/18/20 6:05 pm Transcribed By: VICKI Transcribed Date/Time: 05/18/20 5:57 pm US Pelvis - 02/12/161655 History: Dysmenorrhea, excessive bleeding. . LMP 01/27/2016. Technique: Grayscale and color Doppler techniques were used to image the pelvis transabdominally and transvaginally. Comparison: CT abdomen pelvis dated September 07, 2015 and prior studies Findings: The uterus measures 8.4 x 5.9 x 6.8 cm. Endometrial stripe measures up to 1.7 cm. There is an echogenic rounded lesion within the endometrial canal measuring up to 2.1 cm with a tiny stalk of vascularity which could represent a polyp. Nabothian cyst seen within the cervix measuring up to 1.8 cm. Trace amount of free fluid. The right ovary measures 3.9 x 1.8 x 3.2 cm. Suggestion of a hemorrhagic cyst in the right ovary measuring up to 1.6 cm. Normal arterial and venous waveforms are seen in the right ovary. The left ovary measures 2.9 x 1.8 x 2.8 cm. Venous flow seen within the left ovary. Impression: 2.1 cm echogenic lesion within the endometrial canal. Differential diagnosis would include endometrial polyp, less likely intramural fibroid, endometrial hyperplasia or neoplasm. Recommend direct visualization. [id number] Important message has been communicated to the office of JOSE ANGEL GROVER via the [employer] Notification Result system on 02/12/2016 5:06 PM, Message ID [id number]. Dictating Physician: JOE GOLD MD Electronically Signed by: JOE GOLD MD Dic Date/Time: 02/12/16 1701 Sign date/Time: 02/12/16 170 Polyarthralgia 10/09/2014 Systemic lupus 05/24/2014 Assessment & Plan (02/10/2024 9:59 AM EST): Aware to continue daily prednisone Does not need stress dose given minor surgery Non morbid obesity 11/22/2013 Anxiety and depression, Dr. Carbajal 11/22/2013 Dyspepsia 11/22/2013 Mild vitamin D deficiency 11/22/2013 Abnormal Pap smear of cervix 09/20/2013 Cervical dysplasia 04/14/2011 08/29/2022 Overview (11/06/2023): 11/06/2023: Patient has been seeing Dr. Krueger regularly and looks like patient declined Colposcopy during her visit with Dr. White on 05/21/2023 against her recommendation. I do see that she completed EMB on 10/15/2023 so I will touch base with Dr. Krueger on those results and how she would like to proceed and we will reach out to patient to coordinate from there! thanks! Assessment & Plan (02/10/2024 10:00 AM EST): - Most recent pap ASCUS?HR HPV + - Declined in office colpo Hypothyroid Assessment & Plan (02/10/2024 10:00 AM EST): Levothyroxine; compliant Resolved Problems Problem Noted Date Diagnosed Date Resolved Date IUD check up 03/202202/17/2023 024 Overview (02/17/2023): Result type: US Pelvic Transabdominal Result date: April 05, 2022 11:57 EST Result status: Auth (Verified) Result title: US Pelvic Transabdominal Performed by: Nuvia Stokes MD on April 05, 2022 22:28 EST Verified by: Nuvia Stokes MD on April 05, 2022 22:28 EST Encounter info: [id number], [facility] [place], One Time OP, 04/05/2022 - 04/05/2022 * Final Report * Reason For Exam right ovarain cyst;Other: RESULT: US Pelvic Transabdominal US Pelvic Transabdominal, US Pelvic Transvaginal Reason: Other:; right ovarain cyst; Clinical Question(s): Other:; Order Comment: US Pelvic Non-Ob Comp Prep COMPARISON: Ultrasound of the pelvis 02/21/2022. TECHNIQUE: Transabdominal and transvaginal ultrasound with grayscale and color Doppler analysis. FINDINGS: UTERUS: Size: 9.5 x 4.5 x 5.7 cm, volume 126.6 cc. Endometrial thickness: Limited evaluation of the endometrium secondary to underlying IUD. The IUD appears to be in appropriate position. Morphology: The uterus is lobular in contour with heterogenous echotexture, possibly secondary to adenomyosis. There are intramural foci in the anterior uterine fundal wall measuring 3.3 x 2.5 x 3.5 and 1.4 x 1.1 x 1.5 cm possibly reflecting adenomyosis versus fibroids. Multiple cystic structures in the cervix likely reflect nabothian cysts. RIGHT OVARY: Size: 3.2 x 2.0 x 2.7 cm, volume 9.3 cc. Morphology: Normal echotexture. The previously visualized complex right ovarian cyst is not seen on this study. There is a right ovarian dominant follicle measuring up to 2.5 cm. Normal color Doppler flow. LEFT OVARY: Size: 3.3 x 1.8 x 2.0 cm, volume 6.2 cc. Morphology: Normal echotexture. No pathologic cysts or mass. Normal color Doppler flow. ADNEXA: Normal. No adnexal masses or fluid collections. IMPRESSION: 1. The previously visualized complex right ovarian cyst is not seen on this study. There now appears to be a right ovarian dominant follicle measuring up to 2.5 cm. Recommend continued attention on follow-up. 2. Left ovary is unremarkable 3. Diffuse uterine adenomyosis. 4. Well-positioned IUD. WSN: [id number] Ordering Physician: Barbara Hunter Signature Line Dictated By: Nuvia Stokes MD Dictated Date/Time: 04/05/22 10:28 p Reviewed By: Nuvia Stokes MD Signed By: Nuvia Stokes MD Signed Date/Time: 04/05/22 10:28 pm Transcribed By: VICKI Transcribed Date/Time: 04/05/22 4:53 pm US Pelvic Transabdominal This document has an image Complicated grieving 12/01/2019 023 Encounters Date Type Department Care Team Description 06/07/2024 1:00 PM EDT / Visits [address] [phone] Jena Hough LCSW Major depressive disorder, recurrent episode, severe with anxious distress (HCC-CMS) (Primary Dx); Complicated grieving; Complicated grief 05/11/2024 2:30 PM EST / Visits [address] [phone] Parris Shaw John, PMHNMarcelo Major depressive disorder, recurrent episode, severe with anxious distress (HCC-CMS) (Primary Dx); Complicated grief; Post herpetic neuralgia 04/13/2024 10:00 AM EST Office Visit [address] [phone] Lindsay Zarco, MANAGER CARDIAC-Terry Marques, Celestia Dysuria (Primary Dx); Vaginal odor; Systemic lupus erythematosus, unspecified SLE type, unspecified organ involvement status (HCC-CMS) 04/11/2024 1:45 PM EST / Visits [address] [phone] Jena Hough LCSW Major depressive disorder, recurrent episode, severe with anxious distress (HCC-CMS) (Primary Dx); Complicated grieving; Complicated grief from Last 3 Months Social History Tobacco Use Types Packs/Day Years Used Date Smoking Tobacco: Never Smokeless Tobacco: Never Tobacco Cessation:Counseling Given: Not Answered Alcohol Use Standard Drinks/Week Comments No 0 (1 standard drink = 0.6 oz pur e alcohol) Social Connections Answer Date Recorded Connectedness 1 11/06/2023 Financial Resource Strain Answer Date R ecorded Financial Resource Strain 1 2023 Stress Answer Date Recorded Stress 1 11/06/2023 Physical Activity Answer Date Recorded Physical Activity 0 10/27/2018 Food Insecurity Answer Date Recorded Food 1 11/06/2023 Transportation Needs Answer Date Record ed Transportation 1 11/06/2023 Housing Stability Answer Date Recorded Housing 1 11/06/2023 Safety and Environment Answer Date Celso rded Safety 0 07/04/2022 Utilities Answer Date Recorded Utilities 1 11/06/2023 Employment Answer Date Recorded Stress 0 07/04/2022 Comments No Sex and Gender Information Value Date Recorded Sex Assigned at Female 10/12/2017 4:15 PM PDT Legal Sex Female 11:36 AM PDT Gender Identity Female 10/12/2017 4:15 PM PDT Sexual Orientation Straight 10/12/2017 4: 15 PM PDT Last Filed Vital Signs Vital Sign Reading Time Taken Comments Blood Pressure 131/80 04/13/2024 10:38 AM EST Pulse 76 04/13/2024 10:38 AM EST Temperature 36.7 ??C (98 ??F) 04/13/2024 10: 38 AM EST Respiratory Rate 18 04/13/2024 10:3 8 AM EST Oxygen Saturation 98% 03/03/2024 9:28 AM EST Inhaled Oxygen Concentration - - Weight 104.5 kg (230 lb 4.8 oz) 025 10:38 AM EST Height 157.5 cm (5' 2 ) 03/03/2024 9:28 AM EST Body Mass Index 42.12 03/03/2024 9:28 AM EST Plan of Treatment Upcoming Encounters Date Type Department Care Team (Late st Contact Info) Description 07/08/2024 10:00 AM EDT BH/MH Visits [facility] [address] [place] [phone] Jena Hough LCSW [address] [place] [address] 07/12/2024 1:30 PM EDT /MH Visits [facility] [address] [place] [phone] Parris Shaw [address] [place] [address] Cachorro Santos, HNP [address] [place] [address] Health Maintenance Due Date Last Done Comments Anxiety Screening 1968 Imm-Pneumococcal (1 of 2 - PCV) 1987 CT Colonography 2013 Colonoscopy 2013 Colorectal Cancer Screening 2013 FIT/gFOBT 2013 Fecal DNA 2013 Flexible Sigmoidoscopy 2013 Imm-Zoster, Recombinant (1 of 2) 2018 Annual Preventive Care Visit 11/23/2021, 01/17/2020, 01/21/2018, Additional history exists [id number] ( season) 2023 Depression Monitoring 02/06/2024 11/06/2023 , 07/04/2022, 12/20/2021, Additional history exists Alcohol and Drug Screen 03/09/2024 11/06/19 24, 07/28/2022, 07/04/2022, Additional history exists Diabetes Screening 09/20/2024 09/21/2023, 0 09/21/2023, 03/10/2023, Additional history exists Lipid Screening 09/20/2024 09/21/2023, 02/06, 07/15/2022, Additional history exists TSH Monitoring 02/23/2025 02/24/2024, 09/06, 03/10/2023, Additional history exists Hypertension Screening (#1) 04/13/2025 Tobacco Screening 04/13/2025 04/13/2024 Breast Cancer Screening (Mammogram) 11/22/2025 11/23/2023 Pap Smear 04/09/2026 04/09/2023, 11/07, 11/23/2020, Additional history exists HPV Screening 11/22/2026 11/22/2021 Cervical Cancer Screening 04/09/2028 Pap + HPV 04/09/2028 04/09/2023, 11/07, 11/23/2020, Additional history exists Imm-Influenza Discontinued 05/24/2014 (Maggy sibley by Outside Provider), 02/08/2013 (Declined) HIV Screening Completed 01/17/2020 Hepatitis C Screening Completed 01/17/2020 Colposcopy Discontinued 03/12/2022, 05/06/2018 Cervical Ablation/Cold-Knife Conization Discontinued Cervical Cryotherapy Discontinued Endometrial Biopsy Discontinued Excision/Leep Discontinued HPV Genotyping Discontinued Imm-DTaP/Tdap/Td Discontinued Imm-Hepatitis B Discontinued Vaginal Pap Discontinued Vulvoscopy Discontinued Procedures Procedure Name Priority Date/Time Associated Diagnosis Comments REFERRAL SCANNED DOCUMENT 05/24/2024 3:00 AM EDT LAB SCANNED DOCUMENT 05/24/2024 3:00 AM EDT URINALYSIS, MULTISTIX (POCT) Routine 04/13/2024 10:56 AM EST Dysuria URINE CULTURE W ID & SENS Routine 04/13/2024 10:51 AM EST RFLX - REFLEXIVE URINE CULTURE Routine 04/13/2024 10:51 AM EST URINALYSIS, COMPLETE W/REFLEX TO CULTURE Routine 04/13/2024 10:51 AM EST Dysuria Vaginal odor ASSAY OF THYROID STIMULATING HORMONE TSH Routine 02/24/2024 4:17 PM EST Hypothyroidism, unspecified type SCREENING MAMMOGRAM BILATERAL Routine 11/23/2023 3:00 AM EDT Encounter for screening mammogram for malignant neoplasm of breast HEMOGLOBIN GLYCOSYLATED A1C Routine 09/21/2023 12:44 PM EDT Elevated glucose Non morbid obesity Hypothyroidism, unspecified type Post herpetic neuralgia Lumbar radiculopathy Lower urinary tract symptoms (LUTS) LIPID PANEL Routine 09/21/2023 12:44 PM EDT Elevated glucose Non morbid obesity Hypothyroidism, unspecified type Post herpetic neuralgia Lumbar radiculopathy Lower urinary tract symptoms (LUTS) THIN PREP IMAGE PAP + HPV RNA E6/E7 W/RFLX HPV 16, 18/45 Routine 04/09/2023 11:55 AM EST History of cervical dysplasia COLPOSCOPY, ABSTRACTED Routine 03/12/2022 8:33 AM EST LSIL with high risk HPV 11/2020 PAP SMEAR W/HPV, ABSTRACTED Routine 11/22/2021 LSIL with high risk HPV 11/2020 ANTIBODY HIV-1&HIV-2 SINGLE RESULT Routine 01/17/2020 2:11 PM EST Hypothyroidism, unspecified type Acute cystitis without hematuria Non morbid obesity Systemic lupus erythematosus, unspecified SLE type, unspecified organ involvement status ([facility]) Mild vitamin D deficiency HEPATITIS A,B,C PANEL Routine 01/17/2020 2:11 PM EST Hypothyroidism, unspecified type Acute cystitis without hematuria Non morbid obesity Systemic lupus erythematosus, unspecified SLE type, unspecified organ involvement status ([facility]) Mild vitamin D deficiency from Last 3 Months or Most Recently Relevant to Health Maintenance Results * REFERRAL SCANNED DOCUMENT (05/24/2024 3:00 AM EDT) 05/24/2024 3:00 AM EDT Ivette Resendez PA-C SCAN REFERRAL Final Result * LAB SCANNED DOCUMENT (05/24/2024 3:00 AM EDT) 05/24/2024 3:00 AM EDT Ivette Luceci PA-C SCAN LAB Final Result * (ABNORMAL) URINALYSIS, MULTISTIX (POCT) (04/13/2024 10:56 AM EST) URINE GLUCOSE NEGATIVE NEGATIVE [facility]- BACK OFFICE POCT URINE BILIRUBIN NEGATIVE NEGATIVE [facility]- BACK OFFICE POCT URINE KETONES NEGATIVE NEGATIVE [facility]- BACK OFFICE POCT URINE SPECIFIC GRAVITY 1.030(A) <=1.005 - >=1.030 [facility]- BACK OFFICE POCT URINE BLOOD NEGATIVE NEGATIVE [facility]- BACK OFFICE POCT URINE PH 5.5 5.0 - 8.5 [facility]- BACK OFFICE POCT URINE PROTEIN Trace(A) Negative [facility]- BACK OFFICE POCT URINE UROBILINOGEN 0.2 0.2 - 1.0 E.U./dL [facility]- BACK OFFICE POCT URINE NITRITE NEGATIVE NEGATIVE [facility]- BACK OFFICE POCT URINE LEUKOCYTES TRACE(A) NEGATIVE [facility]- BACK OFFICE POCT URINE COLOR DARK YELLOW STRAW, YELLOW [facility]- BACK OFFICE POCT ODOR URINE Abnormal(A) Normal [facility]- BACK OFFICE POCT CLARITY OF URINE CLOUDY(A) CLEAR [facility]- BACK OFFICE POCT Urine Urine specimen / Unknown 04/13/2024 10:56 AM EST Lindsay Zarco MANAGER CARDIAC-C LAB - NO BLOOD DRAW Final Result [facility]- BACK OFFICE POCT * (ABNORMAL) URINE CULTURE W ID & SENS (04/13/2024 10:51 AM EST) CULTURE See Note(A) [employer] Comment: ??CULTURE, URINE, ROUTINE ?Micro Number: ?[id number] ??Test Status: ? Final ??Specimen Source: ?? Urine ??Specimen Quality: ??Adequate ??Result: ?Greater than 100,000 CFU/mL of ? Group B Streptococcus isolated ? Beta-hemolytic streptococci are predictably ? susceptible to Penicillin and other beta-lactams. ? Susceptibility testing not routinely performed. ? Please contact the laboratory within 3 days if ? susceptibility testing is desired. ??Comment: ? Erythromycin and clindamycin are not recommended ? for treatment of urinary tract infections, ? but clindamycin may be useful for treatment of ? rectovaginal colonization or infection. ??COMMENT: ? Additional non-predominating organism(s) isolated. ? These organisms, commonly found on external and ? internal genitalia, are considered colonizers. No ? further testing performed. 04/13/2024 10:5 1 AM EST 04/14/2024 4:28 AM EST Lindsay Zarco MANAGER CARDIAC-C LAB - NO BLOOD DRAW Edite d Result - Final [facility] [address] [address], [facility] [address] [phone] * (ABNORMAL) URINALYSIS, COMPLETE W/REFLEX TO CULTURE (04/13/2024 10:51 AM EST) COLOR YELLOW YELLOW [facility] APPEARANCE CLOUDY(A) CLEAR [facility] SPECIFIC GRAVITY 1.023 1.001 - 1.035 [facility] URINE PH 5.5 5.0 - 8.0 [facility] GLUCOSE NEGATIVE NEGATIVE [facility] BILIRUBIN NEGATIVE NEGATIVE [facility] KETONES NEGATIVE NEGATIVE [facility] OCCULT BLOOD NEGATIVE NEGATIVE [facility] URINE PROTEIN NEGATIVE NEGATIVE [facility] NITRITE NEGATIVE NEGATIVE [facility] LEUKOCYTE ESTERASE 1+(A) NEGATIVE [facility] URINE LEUKOCYTES 6-10(A) 0 - 5 /HPF [facility] RBC 0-2 0 - 2 /HPF [facility] SQUAMOUS EPITHELIAL CELLS 6-10(A) < OR = 5 /HPF [facility] BACTERIA NONE SEEN NONE SEEN [facility] CALCIUM OXALATE CRYSTALS FEW NONE OR FEW [facility] URIC ACID CRYSTALS MANY(A) NONE OR FEW [facility] HYALINE CAST NONE SEEN NONE SEEN [facility] SEE NOTE See Below [employer] [facility] Comment: This urine was analyzed for the presence of WBC, RBC, bacteria, casts, and other formed elements. Only those elements seen were reported. Urine Urine specimen / Unknown 04/13/2024 10:51 AM EST 04/14/2024 4:28 AM EST [employer] LAB - NO BLOOD DRAW Edite d Result - Final Performing Organization Address [facility] Co de Phone Number [facility] [address] [address], [facility] [address] [phone] * RFLX - REFLEXIVE URINE CULTURE (04/13/2024 10:51 AM EST) REFLEXIVE URINE CULTURE See Below [employer] [facility] Comment:CULTURE INDICATED - RESULTS TO FOLLOW 04/13/2024 10:5 1 AM EST 04/14/2024 4:28 AM EST [facility] LAB - NO BLOOD DRAW Edite d Result - Final Performing Organization Address [facility]/ZIP Co de Phone Number [facility] [address] [address], [employer] [address] [phone] * (ABNORMAL) ASSAY OF THYROID STIMULATING HORMONE TSH (02/24/2024 4:17 PM EST) TSH 0.05(L) 0.40 - 4.50 mIU/L [facility] Comment: ?Reference Range ?> or = 20 Years ??0.40-4.50 ? Ranges ?First trimester ?0.26-2.66 ?Second trimester ?? 0.55-2.73 ?Third trimester ?0.43-2.91 Blood Blood / Unknown 02/24/2024 4 :17 PM EST 02/24/2024 4:[address] [facility] - 02/25/2024 6:29 AM EST FASTING:NO Kirt Elliott MANAGER CARDIAC LAB - BLOOD DRAW Final Re sult [facility] [address] [place] [id number], [facility] [address] [place] [phone] * SCREENING MAMMOGRAM BILATERAL (11/23/2023 3:00 AM EDT) 11/23/2023 3:00 AM EDT Ivette Resendez PA-C IMG MAMMO Final Result * (ABNORMAL) HEMOGLOBIN GLYCOSYLATED A1C (09/21/2023 12:44 PM EDT) HEMOGLOBIN A1C 5.9(H) <5.7 % of total Hgb [employer] Comment: For someone without known diabetes, a hemoglobin A1c value between 5.7% and 6.4% is consistent with prediabetes and should be confirmed with a follow-up test. For someone with known diabetes, a value <7% indicates that their diabetes is well controlled. A1c targets should be individualized based on duration of diabetes, age, comorbid conditions, and other considerations. This assay result is consistent with an increased risk of diabetes. Currently, no consensus exists regarding use of hemoglobin A1c for diagnosis of diabetes for children. Blood Blood / Unknown 09/21/2023 1 2:44 PM EDT 09/21/2023 12:44 PM EDT Narrative [facility] - 09/22/2023 7:29 AM EDT FASTING:NO Ivette Resendez PA-C LAB - BLOOD DRAW Edited Resu lt - Final Performing Organization Address [facility] Co de Phone Number [facility] [address] [address], [facility] [address] [address] * (ABNORMAL) LIPID PANEL (09/21/2023 12:44 PM EDT) CHOLESTEROL, TOTAL 238(H) <200 mg/dL [facility] HDL CHOLESTEROL 75 > OR = 50 mg/dL [facility] TRIGLYCERIDES 74 <150 mg/dL [facility] LDL-CHOLESTEROL 145(H) 99 mg/dL (calc) [facility] Comment: Reference range: <100 Desirable range <100 mg/dL for primary prevention; ?? <70 mg/dL for patients with CHD or diabetic patients with > or = 2 CHD risk factors. LDL-C is now calculated using the Bayron-Kvng calculation, which is a validated novel method providing better accuracy than the Friedewald equation in the estimation of LDL-C. Bayron SS et al. BLAINE. 2013;310(19): 0230-4452 (http://education.[employer]/faq/INQ263) CHOL/HDLC RATIO 3.2 <5.0 (calc) [facility] NON-HDL CHOLESTEROL 163(H) <130 mg/dL (calc) [facility] Comment: For patients with diabetes plus 1 major ASCVD risk factor, treating to a non-HDL-C goal of <100 mg/dL (LDL-C of <70 mg/dL) is considered a therapeutic option. Blood Blood / Unknown 09/21/2023 1 2:44 PM EDT 09/21/2023 12:44 PM EDT Narrative [facility] - 09/22/2023 7:29 AM EDT FASTING:NO Ivette Resendez PA-C LAB - BLOOD DRAW Final Resul t Performing Organization Address City/[facility]/ZIP Co de Phone Number [facility] [address] [address], [facility] [address] [address] * (ABNORMAL) THIN PREP IMAGE PAP + HPV RNA E6/E7 W/RFLX HPV 16, 18/45 (04/09/2023 11:55 AM EST) CLINICAL INFORMATION See Note [employer] Comment:ABNORMAL VALIDATION ENGINEER EXAM LMP See Note [employer] Comment:[id number] PREV. PAP [employer] PREV. BX [employer] SOURCE See Note [employer] Comment:Cervix STATEMENT OF ADEQUACY See Note [employer] Comment: Satisfactory for evaluation. Endocervical/transformation zone component present. GENERAL CATEGORIZATION See Note(A) [employer] Comment:Cytology Results: Ep ithelial Cell Abnormality INTERPRETATION/RESU LT See Note(A) [employer] Comment: Atypical Squamous Cells of Undetermined Significance (ASC-US) COMMENT See Note [employer] Comment: This Pap test has been evaluated with computer assisted technology. Batres portions of this case have been reviewed by one or more pathologists. SHIATSU THERAPIST See Note [facility] [id number] Comment: WXW, CT(ASCP) CT Screening Location: [address] [address] PATHOLOGIST See Note [employer] Comment: Simran Joseph D.O. Board Certified in Anatomic, Clinical and Cytopathology (electronic signature) Consulting Pathologist [facility] [address] [place] [address] COMMENT [employer] HPV MRNA E6/E7 Detected (A) Not Detected [employer] Comment: Methodology: Apprentice Embalmer-Mediated Amplification This assay detects E6/E7 viral messenger RNA (mRNA) from 14 high-risk HPV types (16,18,31,33,35,39,45,51,52,56,58,59,66,68). Cervical sources are required for HPV testing. If a vaginal source from a patient who has had a total hysterectomy with removal of cervix was submitted, please contact the testing laboratory for alternative testing options. For additional information, please refer to http://education.[employer]/faq/OGO408f6 (This link if provided for information/ educational purposes only.) Swab Vaginal structure / Unknown 04/09/2023 11:55 AM EST 04/10/2023 7:18 AM EST Narrative [email or web address] - 04/16/2023 4:29 PM EST EXPLANATORY NOTE: The Pap is a screening test for cervical cancer. It is not a diagnostic test and is subject to false negative and false positive results. It is most reliable when a satisfactory sample, regularly obtained, is submitted with relevant clinical findings and history, and when the Pap result is evaluated along with historic and current clinical information. us Paloma Formisano DO LAB - NO BLOOD DRAW Final Resu lt [employer] [address] [place] [id number], [facility] [address] [place] [phone] * COLPOSCOPY, ABSTRACTED (03/12/2022 8:33 AM EST) Impressions Ivette Resendez PA-C - 03/12/2022 8:33 AM EST ? Result type: Surgical Pathology Result date: March 12, 2022 8:00 EST Result status: Auth (Verified) Result title: Surgical Pathology Performed by: Mendy Hernandez MD on March 12, 2022 8:00 EST Verified by: Mendy Hernandez MD on March 12, 2022 8:00 EST Encounter info: [id number], [facility] [place], [facility], 03/12/2022 - 03/12/2022 Contributor system: [employer] * Final Report * Surgical Pathology Patient Name: ? ANIBAL SHAKIR Lab Patient : ?1970 (Age: 51) Collection Date: ??03/12/2022 Accession Date: ?? 03/12/2022 Sign Out Date: ?03/17/2022 Tissue Source: 1:CERVIX AT 1 OCLOCK 2:ENDOCERVICAL CURETTINGS 3:ENDOMETRIAL POLYP 4:ENDOMETRIAL CURETTINGS Final Diagnosis: 1. Cervix, 1 o'clock, biopsy: ??- Squamous epithelium, negative for squamous intraepithelial lesion. ??- Squamocolumnar junction is not identified in the specimen submitted, multiple additional deeper recuts examined. 2. Endocervix, curettage: ??- Fragments of endocervical epithelium with squamous metaplasia and reactive epithelial changes. ??- Negative for squamous intraepithelial lesion. 3. Endomtrial polyp, polypectomy: ??- Fragments of benign endometrial polyp with background inactive endometrium showing pseudodecidualized stroma consistent with exogenous hormone (progestin) effect. 4. Endometrium, curettage: ??- Inactive endometrium with pseudodecidualized stroma consistent with exogenous hormone (progestin) effect and evidence of stromal and glandular breakdown. ??- Fragments of squamous epithelium with reactive changes. Primary Pathologist:Mendy Hernandez M.D. electronically signed out by: Mendy Hernandez M.D. / STEVE Clinical History: Perimenopausal AUB LSIL / HPV positive pap, immunosuppressive Gross Description: Part 1. Labeled 1:00 . Received in formalin is a 0.4 x 0.4 x 0.2 cm soft white tissue. The specimen is entirely submitted. 1-1 piece, x 2, EOE. (EG)* Part 2. Labeled endocervical curettings . Received in formalin is a 1.6 x 1.5 x 0.3 cm aggregate of translucent mucus with red, mcnair tissue. The specimen is entirely submitted. 1-multiple pieces, x2. ??(EG)* Part 3. Labeled endometrial polyp . Received in formalin is a 1.5 x 1.0 x 0.2 cm aggregate of mcnair, red tissue. The specimen is entirely submitted. 1-multiple pieces, x2. (EG)* Part 4. Labeled endometrial curettings . Received in formalin is a 4.2 x 4.0 x 0.3 cm aggregate of red, mcnair tissue with translucent mucus. The specimen is entirely submitted. 1 and 2-multiple pieces, x2. (EG)* Phone #: ??[phone], On-Call Pathologist: ??[id number] us Provider Ochin PROCEDURES Final Result * (ABNORMAL) PAP SMEAR W/HPV (11/22/2021) PAP SMEAR INTERPRETATION NORMAL NORMAL [facility] HPV (HUMAN PAPILLOMA) POSITIVE(A) NEGATIVE [facility] HPV TYPE 16 POSITIVE NEGATIVE [facility] HPV TYPE 18 POSITIVE NEGATIVE [facility] Swab 11/22/2021 Impressions [facility] - 11/22/2021 8:35 AM EDT ? Result type: Cytology Reports VALIDATION ENGINEER PAP Test Result date: November 22, 2021 21:06 EDT Result status: Auth (Verified) Result title: Cytology Reports VALIDATION ENGINEER PAP Test Encounter info: [id number], [facility], [facility], 11/22/2021 - 11/22/2021 Contributor system: [employer] * Final Report * Cytology Reports VALIDATION ENGINEER PAP Test Patient Name: ? SAVANNAH BARNETT ? Patient : ? 1970 (Age: 51) Lab Collection Date: 11/22/2021 Accession Date: 11/23/2021 Sign Out Date: 11/28/2021 Tissue Source: 1: THINPREP VALIDATION ENGINEER PAP TEST, CERVICAL: Final Diagnosis: NEGATIVE FOR INTRAEPITHELIAL LESION OR MALIGNANCY. Fungal organisms morphologically consistent with Tiffanie spp. Satisfactory for evaluation. ??Endocervical/transformation zone ABSENT. Procedures/Addenda: Human Papilloma Virus, High-Risk (Any Dx) Status: Signed Out Interpretation: POSITIVE Methodology: [employer] Aptima HPV mRNA assay (Nucleic Acid Amplification Test, NAAT). Clinical History: Date of Last Menstrual Period: ?? 11/07/21 Menstrual History: ?? not available Contraceptive History: ??not available Ancillary Testing: ??HPV (any dx) Case imaged by the [employer] Imaging System with manual rescreening or review. Clinical History (other): ??Routine cervical cancer screening Phone #: ??[phone], On-Call Pathologist: ??[id number] us Provider Grady LAB - NO BLOOD DRAW Final Result [facility] [address] [place] [address], * (ABNORMAL) HEPATITIS A,B,C PANEL (01/17/2020 2:11 PM EST) HEPATITIS B SURFACE ANTIBODY NEGATIVE NEGATIVE [facility] HEPATITIS B SURFACE ANTIGEN NEGATIVE NEGATIVE [facility] Comment: Over the counter supplements containing high doses of biotin may interfere with this assay. ??If interference is suspected, patients shoud be retested after refraining from biotin supplements for 72 hours. HEPATITIS C VIRUS DIAGNOSTIC NEGATIVE NEGATIVE [facility] HEPATITIS A ANTIBODY TOTAL POSITIVE(A) NEGATIVE [facility] Comment: Over the counter supplements containing high doses of biotin may interfere with this assay. ??If interference is suspected, patients shoud be retested after refraining from biotin supplements for 72 hours. HEPATITIS B CORE ANTIBODY NEGATIVE NEGATIVE [facility] Blood Blood / Unknown 01/17/2020 2 :11 PM EST 01/17/2020 3:56 PM EST [facility] - 01/17/2020 6:33 PM EST [employer], [place] [address] Control Room Technician [place] [id number] ORD# [id number] us Ivette Resendez PA-C LAB - BLOOD DRAW [place] [address], * HIV-1 & HIV-2 ANTIBODIES (01/17/2020 2:11 PM EST) [facility] HIV 1 AND 2 ANTIBODY SCREEN NEGATIVE NEGATIVE [facility] Comment: This assay is a 4th generation assay allowing for earlier detection of HIV infection by detecting the presence of the HIV-1 p24 antigen as well as the traditional antibodies to HIV type 1 (including group O) and type 2. ??Use of a 4th generation assay is the current CDC recommendation for HIV screening. Blood Blood / Unknown 01/17/2020 2 :11 PM EST 01/17/2020 3:56 PM EST [facility] - 01/17/2020 7:02 PM EST [employer] [address] Control Room Technician [place] [id number] ORD# [id number] us Ivette Resendez PA-C LAB - BLOOD DRAW Final Resul t [facility] [address] [place] [address], from Last 3 Months or Most Recently Relevant to Health Maintenance Insurance [place] [employer] [facility] [employer] Care Teams Expeller Operator Relationship Specialty Start Date End Date Ivette Resendez PA-C [address] [place] [phone] PCP - General 02/08/13
[2024-06-28 18:51] LABS: Alanine Aminotransferase 15 U/L (0-31); Aspartate Amino Transferase 25 U/L (5-31)
== END 2024-06-28 13:32 | disposition home or self-care (01) ==
LOC: HO.HKASLDS 13:31
PROVIDERS: Visit Provider Internal Medicine Rheumatology
DX: Z79.60 Long term (current) use of unspecified immunomodulators and immunosuppressants (principal)
CPT/HCPCS: 36415; 84450; 84460

== ENCOUNTER 2024-08-08 11:33 | Outpatient (REF) | payer MEDICAID, SELFPAY ==
--- OUTSIDE RECORDS SUMMARY | 2024-08-08 12:51 | XMS_ITS | Clinical Summary ---
Author Organization [facility] Address [address] [place] [address] Care Team Providers Care Medical Sonographer Name Role Phone Ivette Resendez PA-C Primary Care Provider [phone] Source Comments PLEASE NOTE, if this patient is a minor, it may be UNLAWFUL to discuss sensitive information that is contained in these records (such as FAMILY PLANNING, MENTAL HEALTH or SUBSTANCE ABUSE) with the minor patient's parent or other person without the patient's specific authorization.[facility] Allergies Active Allergy Reactions Criticality Noted Date Comments Meperidine Itching Medications miscellaneous medical supply miscIndications:C omplicated grieving by miscellaneous route 2 (two) times daily Ensure, disp60/month, dx weight loss 220 lbs 01/2018 to 164 lbs 01/17/2020, grief, poor appetite, lupus 60 Each 11 01/17/20 20 Active docusate sodium (COLACE) 100 mg capsuleIndication s:Functional constipation TAKE 2 CAPSULES BY MOUTH EVERY NIGHT AT BEDTIME 60 Capsule 5 12/11/19 22 Active folic acid (FOLVITE) 1 mg tablet TAKE 1 TABLET BY MOUTH EVERY DAY 30 Tablet 2 11/20/19 24 Active VENTOLIN HFA 90 mcg/actuation inhalerIndication s:Wheezing INHALE 2 PUFFS INTO THE LUNGS EVERY 4 HOURS NEEDED FOR SHORTNESS OF BREATH OR WHEEZING 90 g 1 01/15/20 24 Active pregabalin (LYRICA) 150 mg capsuleIndication s:Post herpetic neuralgia TAKE 1 CAPSULE BY MOUTH TWICE DAILY. DISCONTINUE GABAPENTIN 60 Capsule 3 03/22/19 25 Active predniSONE (DELTASONE) 10 mg tabletIndications :Systemic lupus erythematosus, unspecified SLE type, unspecified organ involvement status ([facility]) 3 tabs po daily for 1 week, then 2 tabs po daily for 1 week then 1 tab po daily for 1 week then 0.5 tabs po daily for 1 week 46 Tablet 04/13/19 25 Active desvenlafaxine succinate (PRISTIQ) 100 mg 24 hr tablet TAKE 1 TABLET BY MOUTH EVERY DAY FOR MAJOR DEPRESSION 30 Tablet 5 05/12/19 25 Active clonazePAM (KLONOPIN) 0.5 mg tablet Take 1 Tablet by mouth 2 (two) times daily as needed for anxiety for anxiety 60 Tablet 1 05/12/19 25 Active QUEtiapine (SEROQUEL) 25 mg tablet TAKE 1 TO 2 TABLETS BY MOUTH AT BEDTIME 60 Tablet 5 05/12/19 25 Active omeprazole (PRILOSEC) [address] capsuleIndication s:Dyspepsia TAKE 1 CAPSULE BY MOUTH EVERY MORNING BEFORE BREAKFAST 90 Capsule 1 05/19/19 25 Active levothyroxine 125 mcg tabletIndications :Hypothyroidism, unspecified type TAKE 1 TABLET BY MOUTH EVERY MORNING BEFORE BREAKFAST 90 Tablet 05/31/19 25 Active traMADoL (ULTRAM) 50 mg tabletIndications :Systemic lupus erythematosus, unspecified SLE type, unspecified organ involvement status ([facility]),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 THEN GO WITHOUT FOR 12 HOURS. 30 Patch 4 07/09/19 25 Active Active Problems Problem Noted Date Diagnosed Date [...] r ecurrent episode, severe with anxious distress ([facility]) 11/02/2019 Thickened endometrium 05/202002/13/2016 Overview (05/21/2020): Result type: US Pelvic Transvaginal Result date: May 18, 2020 17:53 EST Result status: Auth (Verified) Result title: US Pelvic Transvaginal Performed by: Fletcher Meza DO on May 18, 2020 18:05 EST Verified by: Fletcher Meza DO on May 18, 2020 18:05 EST Encounter info: [id number], [facility], 05/18/2020 - 05/18/2020 * [...] Yellow message has been communicated via the Guruji system on 05/18/2020 6:05 PM, Message ID [id number]. WSN: [id number] Ordering Physician: Ivette Resendez Signature Line Dictated By: Fletcher Meza DO Dictated Date/Time: 05/18/20 6:05 pm Reviewed By: Fletcher Meza DO Signed By: Fletcher Meza DO Signed Date/Time: 05/18/20 6:05 pm Transcribed By: VICKI Transcribed Date/Time: 05/18/20 5:57 pm US Pelvis - 02/12/16 - 1656 History: Dysmenorrhea, excessive bleeding. . LMP 01/27/2016. [...] endometrial hyperplasia or neoplasm. Recommend direct visualization. [id number] A Important message has been communicated to the office of JOSE ANGEL GROVER via the Zoyi Notification Result system on 02/12/2016 5:06 PM, Message ID [id number]. Dictating Physician: JEO GOLD MD Electronically Signed by: JOE GOLD [...] April 05, 2022 22:28 EST Encounter info: [id number], [facility] [place], 04/05/2022 - 04/05/2022 * [...] Diffuse uterine adenomyosis. 4. Well-positioned IUD. WSN: [id number] Ordering Physician: Barbara Hunter Signature Line Dictated By: Nuvia Stokes MD Dictated Date/Time: 04/05/22 10:28 p Reviewed By: Nuvia Stokes MD Signed By: Nuvia Stokes MD Signed Date/Time: 04/05/22 10:28 pm Transcribed By: VICKI Transcribed Date/Time: 04/05/22 4:53 pm US Pelvic Transabdominal This document has an image Complicated grieving 12/01/2019 023 Encounters Date Type Department Care Team Description 07/08/2024 10:00 AM EDT / Visits [address] [phone] Jena Hough, SCIENCE MANAGER Major depressive disorder, recurrent episode, severe with anxious distress (HCC-CMS) (Primary Dx); Complicated grieving; Complicated grief 06/07/2024 1:00 PM EDT / Visits [address] [phone] Jena Hough, SCIENCE MANAGER Major depressive disorder, recurrent episode, severe with anxious distress (HCC-CMS) (Primary Dx); Complicated grieving; Complicated grief 05/11/2024 2:30 PM EST / Visits [address] [phone] Parris Shaw John, PMHNP Major depressive disorder, recurrent episode, severe with anxious distress (HCC-CMS) (Primary Dx); Complicated grief; Post herpetic neuralgia from Last 3 Months Social History Tobacco [...] 03/03/2024 9:28 AM EST Plan of Treatment Health Maintenance Due Date Last Done Comments Urine Drug Screen 1970 Imm-Pneumococcal (1 of 2 - PCV) 1987 CT Colonography 2013 Colonoscopy 2013 Colorectal Cancer Screening 2013 FIT/gFOBT 2013 Fecal DNA 2013 Flexible Sigmoidoscopy 2013 Imm-Zoster, Recombinant (1 of 2) 2018 Anxiety Screening 08/02/2021 08/02/2020 Annual Wellness (Adult): Indicated (All Coverage) 11/23/2021 11/23/2020, 01/17/2020, 01/21/2018, Additional history exists [id number] ( season) 2023 Depression Monitoring 02/06/2024 11/06/2023 , 07/04/2022, 12/20/2021, Additional history exists Alcohol and Drug Screen 03/09/2024 11/06/19 24, 07/28/2022, 07/04/2022, Additional history exists Diabetes Screening 09/20/2024 09/21/2023, 0 09/21/2023, 03/10/2023, Additional history exists Lipid Screening 09/20/2024 09/21/2023, 02/06, 07/15/2022, Additional history exists TSH Monitoring 02/23/2025 02/24/2024, 09/06, 03/10/2023, Additional history exists Hypertension Screening (#1) 04/13/2025 Tobacco Screening 07/20/2025 07/20/2024 Breast Cancer Screening (Mammogram) 11/22/2025 11/23/2023 Pap [...] LAB SCANNED DOCUMENT 05/24/2024 3:00 AM EDT LAB SCANNED DOCUMENT 05/24/2024 3:00 AM EDT ASSAY OF THYROID STIMULATING HORMONE TSH Routine [...] SLE type, unspecified organ involvement status (HCC-CMS) Mild vitamin D deficiency HEPATITIS A,B,C PANEL Routine 01/17/2020 2:11 PM EST Hypothyroidism, unspecified type Acute cystitis without hematuria Non morbid obesity Systemic lupus erythematosus, unspecified SLE type, unspecified organ involvement status (HCC-CMS) Mild vitamin D deficiency from Last 3 Months or Most Recently Relevant to Health Maintenance Results * REFERRAL SCANNED DOCUMENT (05/24/2024 3:00 AM EDT) 05/24/2024 3:00 AM EDT Ivette Lukin PA-C SCAN REFERRAL Final Result * LAB SCANNED DOCUMENT (05/24/2024 3:00 AM EDT) Only the most recent of2 resultswithin the time period is included. 05/24/2024 3:00 AM EDT Ivette Lukin PA-C SCAN LAB Final Result * (ABNORMAL) ASSAY OF THYROID STIMULATING HORMONE TSH (02/24/2024 4:17 PM EST) TSH 0.05(L) 0.40 - 4.50 mIU/L [facility] Comment: ?Reference Range ?> or = 20 Years ??0.40-4.50 ? Ranges ?First trimester ?0.26-2.66 ?Second trimester ?? 0.55-2.73 ?Third trimester ?0.43-2.91 Blood Blood / Unknown 02/24/2024 4 :17 PM EST 02/24/2024 4:18 PM EST Narrative [facility] - 02/25/2024 6:29 AM EST FASTING:NO Kirt Elliott CUFF SETTER LAB - BLOOD DRAW F inal Result [facility] [address] [place] [id number], [facility] [address] [place] [phone] * SCREENING MAMMOGRAM BILATERAL (11/23/2023 3:00 AM EDT) 11/23/2023 3:00 AM EDT Ivette Resendez PA-C IMG MAMMO Final Result * (ABNORMAL) HEMOGLOBIN GLYCOSYLATED A1C (09/21/2023 12:44 PM EDT) [facility] HEMOGLOBIN A1C 5.9(H) <5.7 % of total Hgb [facility] Comment: For someone without known diabetes, a [...] PM EDT 09/21/2023 12:44 PM EDT Narrative [facility] - 09/22/2023 7:29 AM EDT FASTING:NO us Ivette Resendez PA-C LAB - BLOOD DRAW Edited Resu lt - Final [facility] [address] [address], [employer] [address] [phone] * (ABNORMAL) LIPID PANEL (09/21/2023 12:44 PM EDT) [facility] CHOLESTEROL, TOTAL 238(H) <200 mg/dL [facility] HDL CHOLESTEROL 75 > OR = 50 mg/dL [facility] TRIGLYCERIDES 74 <150 mg/dL [facility] LDL-CHOLESTEROL 145(H) 99 mg/dL (calc) [facility] Comment: Reference range: <100 Desirable range <100 mg/dL for primary prevention; ?? <70 mg/dL for patients with CHD or diabetic patients with > or = 2 CHD risk factors. LDL-C is now calculated using the Bayron-Kvng calculation, which is a validated novel method providing better accuracy than the Friedewald equation in the estimation of LDL-C. Bayron VAZQUEZ et al. BLAINE. 2013;310(19): 0951-1222 (http://education.Monet Software/faq/HKL284) CHOL/HDLC RATIO 3.2 <5.0 (calc) [facility] NON-HDL CHOLESTEROL 163(H) <130 mg/dL (calc) [facility] Comment: For patients with diabetes plus 1 major ASCVD risk factor, treating to a non-HDL-C goal of <100 mg/dL (LDL-C of <70 mg/dL) is considered a therapeutic option. Blood Blood / Unknown 09/21/2023 1 2:44 PM EDT 09/21/2023 12:44 PM EDT Narrative [facility] - 09/22/2023 7:29 AM EDT FASTING:NO us Ivette Resendez PA-C LAB - BLOOD DRAW Final Resul t [facility] [address] [address], [facility] [place] [employer] [address] [place] [phone] * (ABNORMAL) THIN PREP IMAGE PAP + HPV RNA E6/E7 W/RFLX HPV 16, 18/45 (04/09/2023 11:55 AM EST) CLINICAL INFORMATION See Note [facility] Comment:ABNORMAL TERADATA SOLUTION ARCHITECT EXAM LMP See Note [facility] Comment:[id number] PREV. PAP [facility] PREV. BX [facility] SOURCE See Note [facility] Comment:Cervix STATEMENT OF ADEQUACY See Note [facility] Comment: Satisfactory for evaluation. Endocervical/transformation zone component present. GENERAL CATEGORIZATION See Note(A) [facility] Comment:Cytology Results: Ep ithelial Cell Abnormality INTERPRETATION/RESU LT See Note(A) [facility] Comment: Atypical Squamous Cells of Undetermined Significance (ASC-US) COMMENT See Note [facility] Comment: This Pap test has been evaluated with computer assisted technology. Batres portions of this case have been reviewed by one or more pathologists. SUPERVISOR OF OFFICIALS See Note [facility] [employer] Comment: WXW, CT(ASCP) CT Screening Location: [address] [address] PATHOLOGIST See Note [facility] Comment: Simarn Joseph D.O. Board Certified in Anatomic, Clinical and Cytopathology (electronic signature) Consulting Pathologist [facility] Pathology [address] [place] [address] COMMENT [facility] HPV MRNA E6/E7 Detected (A) Not Detected [facility] Comment: Methodology: Car Dryer-Mediated Amplification This assay detects E6/E7 viral messenger RNA (mRNA) from 14 high-risk HPV types (16,18,31,33,35,39,45,51,52,56,58,59,66,68). Cervical sources are required for HPV testing. If a vaginal source from a patient who has had a total hysterectomy with removal of cervix was submitted, please contact the testing laboratory for alternative testing options. For additional information, please refer to http://education.T[employer]/faq/UKN117s9 (This link if provided for information/ educational purposes only.) Swab Vaginal structure / Unknown 04/09/2023 11:55 AM EST 04/10/2023 7:18 AM EST Narrative [facility] - 04/16/2023 4:29 PM EST EXPLANATORY NOTE: [...] along with historic and current clinical information. Paloma Krueger DO LAB - PATHOLOGY AND CYTOLOGY A MBULATORY Final Result [facility] [address] [address], [facility] [address] [phone] * COLPOSCOPY, ABSTRACTED (03/12/2022 8:33 AM EST) Impressions Ivette Resendez PA-C - 03/12/2022 8:33 AM EST ? Result type: Surgical Pathology Result date: March 12, 2022 8:00 EST Result status: Auth (Verified) Result title: Surgical Pathology Performed by: Mendy Hernandez MD on March 12, 2022 8:00 EST Verified by: Mendy Hernandez MD on March 12, 2022 8:00 EST [facility]: [id number][facility] [place] 03[facility]12/2022 Contributor system: [employer] * Final Report * Surgical Pathology Patient Name: ? SHAKIR BARNETT Lab Patient : ?1970 (Age: 51) Collection [...] and 2-multiple pieces, x2. (EG)* Phone #: ??[phone], On-Call Pathologist: ??[id number] us Provider [facility] PROCEDURES Final Result * (ABNORMAL) PAP SMEAR W/HPV (11/22/2021) PAP SMEAR INTERPRETATION NORMAL NORMAL [facility] HPV (HUMAN PAPILLOMA) POSITIVE(A) NEGATIVE [facility] HPV TYPE 16 POSITIVE NEGATIVE [facility] HPV TYPE 18 POSITIVE NEGATIVE [facility] Swab 11/22/2021 Impressions [facility] - 11/22/2021 8:35 AM EDT ? Result type: Cytology Reports [employer]CH[employer] PAP Test Result date: November 22, 2021 21:06 EDT Result status: Auth (Verified) Result title: Cytology Reports TERADATA SOLUTION ARCHITECT PAP Test Encounter info: [id number], [facility] [place], 11/22/2021 - 11/22/2021 Contributor system: [employer] * Final Report * Cytology Reports TERADATA SOLUTION ARCHITECT PAP Test Patient Name: ? ANIBAL SAVANNAH ? Patient : ? 1970 (Age: 51) Lab Collection Date: 11/22/2021 Accession Date: 11/23/2021 Sign Out Date: 11/28/2021 Tissue Source: 1: THINPREP TERADATA SOLUTION ARCHITECT PAP TEST, CERVICAL: Final Diagnosis: NEGATIVE FOR INTRAEPITHELIAL LESION OR MALIGNANCY. Fungal organisms morphologically consistent with Tiffanie spp. Satisfactory for evaluation. ??Endocervical/transformation zone ABSENT. Procedures/Addenda: Human Papilloma Virus, High-Risk (Any Dx) Status: Signed Out Interpretation: POSITIVE Methodology: [employer] Aptima HPV mRNA assay (Nucleic Acid Amplification Test, NAAT). Clinical History: Date of Last Menstrual Period: ?? 11/07/21 Menstrual History: ?? not available Contraceptive History: ??not available Ancillary Testing: ??HPV (any dx) Case imaged by the [employer] System with manual rescreening or review. Clinical History (other): ??Routine cervical cancer screening Phone #: ??[phone], On-Call Pathologist: ??[id number] us Provider [facility] LAB - PATHOLOGY AND CYTOLOGY AMB ULATORY Final Result Performing Organization Address [facility]/ZIP Co de Phone Number [facility] [address] [place] [address], * (ABNORMAL) HEPATITIS A,B,C PANEL (01/17/2020 2:11 PM EST) HEPATITIS B SURFACE ANTIBODY NEGATIVE NEGATIVE [facility] HEPATITIS B SURFACE ANTIGEN NEGATIVE NEGATIVE [facility] Comment: Over the counter supplements containing high doses of biotin may interfere with this assay. ??If interference is suspected, patients shoud be retested after refraining from biotin supplements for 72 hours. HEPATITIS C VIRUS DIAGNOSTIC NEGATIVE NEGATIVE [facility] HEPATITIS A ANTIBODY TOTAL POSITIVE(A) NEGATIVE [facility] Comment: Over the counter supplements containing high doses of biotin may interfere with this assay. ??If interference is suspected, patients shoud be retested after refraining from biotin supplements for 72 hours. HEPATITIS B CORE ANTIBODY NEGATIVE NEGATIVE [facility] Blood Blood / Unknown 01/17/2020 2 :11 PM EST 01/17/2020 3:56 PM EST Narrative [facility] - 01/17/2020 6:33 PM EST [facility], [place] [address] Wall [place] [id number] ORD# [id number] Ivette Resendez PA-C LAB - BLOOD DRAW Edited Resu lt - Final Performing Organization Address City/[facility] Co de Phone Number [address] [address], * HIV-1 & HIV-2 ANTIBODIES (01/17/2020 2:11 PM EST) HIV 1 AND 2 ANTIBODY SCREEN NEGATIVE NEGATIVE [facility] Comment: This assay is a 4th generation [...] :11 PM EST 01/17/2020 3:56 PM EST Narrative [facility] - 01/17/2020 7:02 PM EST [facility], a member of [address] [address] [place] [id number] ORD# [id number] Ivette Resendez PA-C LAB - BLOOD DRAW Final Resul t [facility] [address] [place] [address], from Last 3 Months or Most Recently Relevant to Health Maintenance Insurance [facility] [id number] Care Teams Medical Sonographer Relationship Specialty Start Date End Date Ivette Resendez PA-C [address] [place] [phone] PCP - General 02/08/13
== END 2024-08-08 11:34 | disposition home or self-care (01) ==
LOC: HO.HKASLDS 11:33
PROVIDERS: Visit Provider Internal Medicine Rheumatology
DX: Z13.89 Encounter for screening for other disorder (principal)
CPT/HCPCS: 36415

== ENCOUNTER 2024-08-16 14:12 | Outpatient (REF) | payer MEDICAID, SELFPAY ==
--- OUTSIDE RECORDS SUMMARY | 2024-08-16 17:06 | XMS_ITS | Clinical Summary ---
Author Organization [facility] Address [address] [place] [address] Care Team Providers Care Seo Coordinator Name Role Phone Ivette Resendez PA-C Primary Care Provider [phone] Source Comments PLEASE NOTE, if this patient [...] unspecified SLE type, unspecified organ involvement status ([facility]) 3 tabs po daily for 1 week, [...] BREAKFAST 90 Capsule 1 05/19/19 25 Active lidocaine (LIDODERM) 5 % patchIndications: Lumbar radiculopathy APPLY 1 PATCH TO TO THE AFFECTED AREA FOR 12 HOURS. THEN GO WITHOUT FOR 12 HOURS. 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 Max Daily Amount: 50 mg 30 Tablet 2 08/09/19 25 Active levothyroxine 125 mcg tabletIndications :Hypothyroidism, unspecified type Take 1 Tablet by mouth every morning before breakfast. 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 Take 1 Tablet by mouth 2 (two) times daily as needed for pain 30 Tablet 07/09/19 25 025 Discontin ued(Reord er (E-Cancel Not Sent)) Active Problems Problem Noted Date Diagnosed Date [...] r ecurrent episode, severe with anxious distress ([facility]) 11/02/2019 Thickened endometrium 05/202002/13/2016 Overview (05/21/2020): Result type: US Pelvic Transvaginal Result date: May 18, 2020 17:53 EST Result status: Auth (Verified) Result title: US Pelvic Transvaginal Performed by: Fletcher Meza DO on May 18, 2020 18:05 EST Verified by: Fletcher Meza DO on May 18, 2020 18:05 EST Encounter info: [id number], [facility], [facility] Time OP, 05/18/2020 - 05/18/2020 * [...] Yellow message has been communicated via the Signal system on 05/18/2020 6:05 PM, Message ID [id number]. WSN: [id number] Ordering Physician: Ivette Resendez Signature Line Dictated By: Fletcher Meza DO Dictated Date/Time: 05/18/20 6:05 pm Reviewed By: Fletcher Meza DO Signed By: Fletcher Meza DO Signed Date/Time: 05/18/20 6:05 pm Transcribed By: VICKI Transcribed Date/Time: 05/18/20 5:57 pm US Pelvis - 02/12/16 - 1177 History: Dysmenorrhea, excessive bleeding. . LMP 01/27/2016. [...] endometrial hyperplasia or neoplasm. Recommend direct visualization. [id number] Important message has been communicated to the office of JOSE ANGEL GROVER via the [id number] Result system on 02/12/2016 5:06 PM, Message ID [id number]. Dictating Physician: JOE GOLD MD Electronically Signed [...] April 05, 2022 22:28 EST Encounter info: [id number], [facility], One Time OP, 04/05/2022 - 04/05/2022 * [...] Diffuse uterine adenomyosis. 4. Well-positioned IUD. WSN: [id number] Ordering Physician: Barbara Hunter Signature Line Dictated [...] Description 07/08/2024 10:00 AM EDT / Visits [address] [address] [place], [place] Major depressive disorder, recurrent episode, severe with anxious distress ([facility]) (Primary Dx); Complicated grieving; Complicated grief 06/07/2024 1:00 PM EDT / Visits [address] [address] [place], [place] Major depressive disorder, recurrent episode, severe with [...] Transportation Needs Answer Date Record ed Transportation 11/06/2023 Housing Stability Answer Date Recorded Housing [...] Care Team (Late st Contact Info) Description 09/13/2024 8:40 AM EDT Office Visit [facility] [address] [place] [phone] Ivette Resendez PA-C [address] [place] [phone] Health Maintenance Due Date Last Done Comments Urine Drug Screen 1970 Imm-Pneumococcal (1 of 2 - PCV) 1987 CT Colonography 2013 Colonoscopy 2013 Colorectal Cancer Screening 2013 FIT/gFOBT 2013 Fecal DNA 2013 Flexible Sigmoidoscopy 2013 Imm-Zoster, Recombinant (1 of 2) 2018 Anxiety Screening 08/02/2021 08/02/2020 Annual Wellness (Adult): Indicated (All Coverage) 11/23/2021 11/23/2020, 01/17/2020, 01/21/2018, Additional history exists [id number] ( season) 2023 Depression Monitoring 02/06/2024 11/06/2023 [...] unspecified SLE type, unspecified organ involvement status ([facility]) Mild vitamin D deficiency HEPATITIS A,B,C PANEL Routine 01/17/2020 2:11 PM EST Hypothyroidism, unspecified type Acute cystitis without hematuria Non morbid obesity Systemic lupus erythematosus, unspecified SLE type, unspecified organ involvement status ([facility]) Mild vitamin D deficiency from Last 3 Months or Most Recently Relevant to Health Maintenance Results * REFERRAL SCANNED DOCUMENT (05/24/2024 3:00 AM EDT) 05/24/2024 3:00 AM EDT Ivette Carmonaceci PA-C SCAN REFERRAL Final Result * LAB SCANNED DOCUMENT (05/24/2024 3:00 AM EDT) Only the most recent of2 resultswithin the time period is included. 05/24/2024 3:00 AM EDT Ivette Resendez PA-C SCAN LAB Final Result * (ABNORMAL) ASSAY OF THYROID STIMULATING HORMONE TSH (02/24/2024 4:17 PM EST) TSH 0.05(L) 0.40 - 4.50 mIU/L [facility] Comment: ?Reference Range ?> or = 20 Years ??0.40-4.50 ? Ranges ?First trimester ?0.26-2.66 ?Second trimester ?? 0.55-2.73 ?Third trimester ?0.43-2.91 Blood Blood / Unknown 02/24/2024 4 :17 PM EST 02/24/2024 4:18 PM EST Narrative [facility] [employer] [facility] [employer] - 02/25/2024 6:29 AM EST FASTING:NO Kirt Elliott SUPERVISOR [employer] LAB - BLOOD DRAW F inal Result [facility] [address] [address], [facility] [address] [place] [address] * SCREENING MAMMOGRAM BILATERAL (11/23/2023 3:00 AM EDT) 11/23/2023 3:00 AM EDT Ivette Resendez PA-C IMG MAMMO Final Result * (ABNORMAL) HEMOGLOBIN GLYCOSYLATED A1C (09/21/2023 12:44 PM EDT) HEMOGLOBIN A1C 5.9(H) <5.7 % of total Hgb [facility] Comment: For someone without known diabetes, a [...] PM EDT 09/21/2023 12:44 PM EDT Narrative [facility] - 09/22/2023 7:29 AM EDT FASTING:NO Ivette Resendez PA-C LAB - BLOOD DRAW Edited Resu lt - Final [facility] [address] [place] [address], [facility] [address] [place] [phone] * (ABNORMAL) LIPID PANEL (09/21/2023 12:44 PM EDT) CHOLESTEROL, TOTAL 238(H) <200 mg/dL [facility] HDL CHOLESTEROL 75 > OR = 50 mg/dL [facility] TRIGLYCERIDES 74 <150 mg/dL [facility] LDL-CHOLESTEROL 145(H) 99 mg/dL (calc) [facility] Comment: Reference range: <100 Desirable range <100 mg/dL for primary prevention; ?? <70 mg/dL for patients with CHD or diabetic patients with > or = 2 CHD risk factors. LDL-C is now calculated using the Bayron-Calderon calculation, which is a validated novel method providing better accuracy than the Friedewald equation in the estimation of LDL-C. Bayron SS et al. BLAINE. 2013;310(19): 3158-8009 (http://education.Teads/faq/SUM334) CHOL/HDLC RATIO 3.2 <5.0 (calc) [facility] NON-HDL CHOLESTEROL 163(H) <130 mg/dL (calc) [facility] Comment: For patients with diabetes plus 1 major ASCVD risk factor, treating to a non-HDL-C goal of <100 mg/dL (LDL-C of <70 mg/dL) is considered a therapeutic option. Blood Blood / Unknown 09/21/2023 1 2:44 PM EDT 09/21/2023 12:44 PM EDT Narrative [facility] - 09/22/2023 7:29 AM EDT FASTING:NO us Ivette Resendez PA-C LAB - BLOOD DRAW Final Resul t [facility] [address] [address], [facility] [address] [place] [address] * (ABNORMAL) THIN PREP IMAGE PAP + HPV RNA E6/E7 W/RFLX HPV 16, 18/45 (04/09/2023 11:55 AM EST) CLINICAL INFORMATION See Note [facility] Comment:ABNORMAL DIP UNIT OPERATOR EXAM LMP See Note [facility] Comment:[id number] PREV. PAP [facility] PREV. BX [facility] SOURCE See Note [facility] Comment:Cervix STATEMENT OF ADEQUACY See Note [facility] Comment: Satisfactory for evaluation. Endocervical/transformation zone component present. GENERAL CATEGORIZATION See Note(A) [facility] Comment:Cytology Results: Ep ithelial Cell Abnormality INTERPRETATION/RESU LT See Note(A) [facility] Comment: Atypical Squamous Cells of Undetermined Significance (ASC-US) COMMENT See Note [facility] Comment: This Pap test has been evaluated with computer assisted technology. Batres portions of this case have been reviewed by one or more pathologists. FISHER CRAB See Note [facility] [employer] Comment: WXW, CT(ASCP) CT Screening Location: [address] [address] PATHOLOGIST See Note [employer] [facility] Comment: Simran Joseph D.O. Board Certified in Anatomic, Clinical and Cytopathology (electronic signature) Consulting Pathologist [facility] [address] [place] [address] COMMENT [employer] [facility] [facility] HPV MRNA E6/E7 Detected (A) Not Detected [employer] [facility] Comment: Methodology: Student Counselor-Mediated Amplification This assay detects E6/E7 viral messenger RNA (mRNA) from 14 high-risk HPV types (16,18,31,33,35,39,45,51,52,56,58,59,66,68). Cervical sources are required for HPV testing. If a vaginal source from a patient who has had a total hysterectomy with removal of cervix was submitted, please contact the testing laboratory for alternative testing options. For additional information, please refer to http://education.eEvent/faq/CUL522g1 (This link if provided for information/ educational purposes only.) Swab Vaginal structure / Unknown 04/09/2023 11:55 AM EST 04/10/2023 7:18 AM EST Narrative [facility] [employer] - 04/16/2023 4:29 PM EST EXPLANATORY NOTE: [...] historic and current clinical information. us Paloma Krueger DO LAB - PATHOLOGY AND CYTOLOGY A MBULATORY Final Result [facility] [address] [address], [facility] [address] [address] * COLPOSCOPY, ABSTRACTED (03/12/2022 8:33 AM EST) Impressions Ivette Resendez PA-C - 03/12/2022 8:33 AM EST ? Result type: Surgical Pathology Result date: March 12, 2022 8:00 EST Result status: Auth (Verified) Result title: Surgical Pathology Performed by: Mendy Hernandez MD on March 12, 2022 8:00 EST Verified by: Mendy Hernandez MD on March 12, 2022 8:00 EST Encounter info: [id number], Aurelio TORREStaaren, 03/12/2022 - 03/12/2022 Contributor system: [employer] * Final Report * Surgical Pathology Patient [...] and 2-multiple pieces, x2. (EG)* Phone #: ??[phone], On-Call Pathologist: ??[id number] us Provider [facility] PROCEDURES Final Result * (ABNORMAL) PAP SMEAR W/HPV (11/22/2021) PAP SMEAR INTERPRETATION NORMAL NORMAL [facility] HPV (HUMAN PAPILLOMA) POSITIVE(A) NEGATIVE [facility] HPV TYPE 16 POSITIVE NEGATIVE [facility] HPV TYPE 18 POSITIVE NEGATIVE [facility] Swab 11/22/2021 Impressions [facility] - 11/22/2021 8:35 AM EDT ? Result type: Cytology Reports DIP UNIT OPERATOR PAP Test Result date: November 22, 2021 21:06 EDT Result status: Auth (Verified) Result title: Cytology Reports DIP UNIT OPERATOR PAP Test Encounter info: [id number], [facility], [facility] OP, 11/22/2021 - 11/22/2021 Contributor system: [employer] * Final Report * Cytology Reports DIP UNIT OPERATOR PAP Test Patient Name: ? SAVANNAH BARNETT ? Patient : ? 1970 (Age: 51) Lab Collection Date: 11/22/2021 Accession Date: 11/23/2021 Sign Out Date: 11/28/2021 Tissue Source: 1: THINPREP DIP UNIT OPERATOR PAP TEST, CERVICAL: Final Diagnosis: NEGATIVE FOR INTRAEPITHELIAL LESION OR MALIGNANCY. Fungal organisms morphologically consistent with Tiffanie spp. Satisfactory for evaluation. ??Endocervical/transformation zone ABSENT. Procedures/Addenda: Human Papilloma Virus, High-Risk (Any Dx) Status: Signed Out Interpretation: POSITIVE Methodology: [employer] Aptima HPV mRNA assay (Nucleic Acid Amplification Test, NAAT). Clinical History: Date of Last Menstrual Period: ?? 11/07/21 Menstrual History: ?? not available Contraceptive History: ??not available Ancillary Testing: ??HPV (any dx) Case imaged by the ThinPrep Imaging System with manual rescreening or review. Clinical History (other): ??Routine cervical cancer screening Phone #: ??[phone], On-Call Pathologist: ??[id number] us Provider [facility] LAB - PATHOLOGY AND CYTOLOGY AMB ULATORY Final Result Performing Organization Address [facility] Co de Phone Number [facility] [address] [place] [address], * (ABNORMAL) HEPATITIS A,B,C PANEL (01/17/2020 2:11 PM EST) HEPATITIS B SURFACE ANTIBODY NEGATIVE NEGATIVE [facility] HEPATITIS B SURFACE ANTIGEN NEGATIVE NEGATIVE [facility] Comment: Over the counter supplements containing high doses of biotin may interfere with this assay. ??If interference is suspected, patients shoud be retested after refraining from biotin supplements for 72 hours. HEPATITIS C VIRUS DIAGNOSTIC NEGATIVE NEGATIVE [facility] HEPATITIS A ANTIBODY TOTAL POSITIVE(A) NEGATIVE [facility] Comment: Over the counter supplements containing high doses of biotin may interfere with this assay. ??If interference is suspected, patients shoud be retested after refraining from biotin supplements for 72 hours. HEPATITIS B CORE ANTIBODY NEGATIVE NEGATIVE [facility] Blood Blood / Unknown 01/17/2020 2 :11 PM EST 01/17/2020 3:56 PM EST Narrative [facility] - 01/17/2020 6:33 PM EST [employer], a member of [address] [address] Retort [place] [id number] ORD# [id number] Ivette Resendez PA-C LAB - BLOOD DRAW Edited Resu lt - Final [address] [address], [place] [phone] * HIV-1 & HIV-2 ANTIBODIES (01/17/2020 2:11 PM EST) [facility] HIV 1 AND 2 ANTIBODY SCREEN NEGATIVE NEGATIVE [facility] Comment: This assay is a 4th generation [...] PM EST 01/17/2020 3:56 PM EST Narrative [facility] - 01/17/2020 7:02 PM EST [employer], a member of [address] [address] Retort Pre [place] [id number] ORD# [id number] us Ivette Resendez PA-C LAB - BLOOD DRAW Final Resul t Performing Organization Address [facility] Co de Phone Number [address] [address], [place] [phone] from Last 3 Months or Most Recently Relevant to Health Maintenance Insurance [place] [facility] [employer] [employer] Care Teams Seo Coordinator Relationship Specialty Start Date End Date Ivette Resendez PA-C [address] [place] [address] PCP - General 02/08/13
[2024-08-16 18:02] LABS: MANUAL DIFF FLAG NO
[2024-08-16 18:20] LABS: Basophils Percent Auto 0.4 % (0-2); Eosinophils Absolute Auto 0.1 X10*3/uL (0.0-0.4); Hematocrit 42.1 % (37.0-47.0); Hemoglobin 13.2 g/dl (12.0-16.0); Imm Gran Abs Auto 0.02 X10*3/uL (0.00-0.03); Imm Gran Pct Auto 0.4 % (0.0-0.4); Lymphocytes Absolute Auto 1.9 X10*3/uL (1.2-4.9); Lymphocytes Percent Auto 37.6 % (20-40); Mean Corpuscular HGB Conc 31.4 g/dl (31.0-35.0); Mean Corpuscular Hemoglobin 27.6 pg (27.0-33.0); Mean Corpuscular Volume 87.9 fL (80.0-98.0); Mean Platelet Volume 12.2 fL (9.4-12.3); Monocytes Absolute Auto 0.4 X10*3/uL (0.1-1.2); Monocytes Percent Auto 7.3 % (2-11); Neutrophils Absolute Auto 2.6 x10*3/uL (2.0-8.3); Neutrophils Percent Auto 52.3 % (45-73); Platelet Count 219 X10*3/uL (160-400); Red Blood Count 4.79 X10*6/uL (4.20-5.50); Red Cell Distribution Width 17.5 % (11.0-16.0); White Blood Count 5.1 X10*3/uL (4.8-10.8)
[2024-08-16 18:27] LABS: Aspartate Amino Transferase 36 U/L (5-31); Estimated Glomerular Filt Rate > 60
[2024-08-16 18:40] LABS: Alanine Aminotransferase 40 U/L (0-31)
== END 2024-08-16 14:13 | disposition home or self-care (01) ==
LOC: HO.HKASLDS 14:12
PROVIDERS: Visit Provider Internal Medicine Rheumatology
DX: Z79.60 Long term (current) use of unspecified immunomodulators and immunosuppressants (principal)
CPT/HCPCS: 36415; 82565; 84450; 84460; 85025

== ENCOUNTER 2024-08-24 12:41 | Outpatient (AMB) | payer MEDICAID, SELFPAY ==
--- NOTE | 2024-08-24 12:49 | A.OFFVIS_ITS ---
Vital Signs 08/24/24 12:50 Height 5 ft 2 in Weight 219 lb 2 oz BMI 40.1 BP 130/80 Blood Pressure Location Lt brachial Position Sitting Pulse 80 Pulse Source Pulse Oximeter Pulse Oximetry (%) 98 Oxygen Delivery Method Room Air Intake Visit Reasons: 3 Months Intake Note: Patient presents today for a follow up for lupus. Bell Neck Hammerer Required: Yes Bell Neck Hammerer Name: ambrocio [id number] Accompanied by: Employer Allergies demarol Allergy (Severe, Uncoded 02/24/24 13:47) Anaphylaxis HPI HPI 3 Months: Details: Video translator interpreter used. Ghanaian-speaking patient. Slovenian is her second language. She is experiencing pain in her legs described as burning pain, sharp, numbness that is making it hard for her to wake up in the morning and walk. Pain is radiating up hips. Worsen her feet. Icing hips is ineffective. She is having a lot of pain in bilateral hips. Left shoulder pain is uncontrolled. has to help her get dressed in the morning. She feels weak with diffic ulty getting up. Hard to walk. Hard to swallow. She has lost weight. She has been drinking more water. At this time she is on prednisone 5 mg daily. No change in facial rash while being on prednisone. [facility] Medical History Recurrent dislocation of right upper arm Physical Exam Vital Signs: Last Vital Signs Pulse 80 08/24/24 12:50 BP 130/80 08/24/24 12:50 Pulse Ox 98 08/24/24 12:50 Oxygen Delivery Method Room Air 08/24/24 12:50 BMI result Body Mass Index 40.1 Const Other: General: Comfortable CVS: RRR Respiratory: clear to auscultation bilaterally. Good respiratory effort Skin: No lesions seen MSK: Bilateral shoulder tenderness with limited abduction past 160 degrees of left shoulder. Internal and external rotation of left shoulder is painful but full. Tender MCPs and PIP. No synovitis. Tender bilateral trochanteric bursae. Limited full external rotation of left hip due to pain. Tender MTPs. Power: 5/5 upper extremities. Left hip flexor 2/5, right hip flexor 3/5, knee flexors and extensor left side 3/5, right side 5/5, ankle 5/5 bilateral plantar flexor and dorsiflexion Assessment & Plan Assessment & Plan (1) Dermatomyositis: Comment: Cutaneous manifestation of dermatomyositis is not completely controlled on therapy with hydroxychloroquine and methotrexate. She recently had labs done last month that revealed mild transaminitis, which may related to methotrexate. I will be repeating liver function tests this visit. She has not had benefit with prednisone course recently in resolving facial rash. She developed inflammatory arthritis in her hands with persistent polyarthralgias and new lower extremity peripheral neuropathy. She has weakness in her lower extremities on exam. I am concerned that she may have myositis with differential diagnosis including metabolic myopathy (history of thyroid disease on levothyrox ine). 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 Hydroxychloroquine 08/2021- and MMF 08/2021-05/2024 relapse cutaneous disease. MTX 05/2024. Code(s): M33.13 - Other dermatomyositis without myopathy Category: Medical Plan: Labs for workup, disease and drug monitoring ordered Continue methotrexate 15 mg once weekly and folic acid 1 mg daily for now until lab results are reviewed. If patient has persistent transaminitis, methotrexate needs to be discontinued and changed to an alternative immune suppressive therapy to better control patient's disease Continue hydroxychloroquine 200 mg twice a day as it is better tolerated for patient. Eye exam OCT 04/2022. No visual field test. I am requesting patient call [facility] for eye exam for visual field testing and OCT exam. Bilateral lower extremity EMG ordered Return to clinic in 2 weeks (2) Other manager terminal (current) drug therapy: Code(s): Z79.899 - Other manager terminal (current) drug therapy Category: Medical Plan: See above (3) Left shoulder pain: Comment: Chronic likely due to rotator cuff tendinopathy. X-ray revealed mild AC joint arthritis. Unable to participate in PT due to uncontrolled pain. Repeat cortisone injection provides temporary relief. Failed Tylenol and nabumetone Code(s): M25.512 - Pain in left shoulder Category: Medical Qualifiers: Chronicity: chronic Qualified Code(s): M25.512 - Pain in left shoulder; G89.29 - Other chronic pain Plan: MRI left shoulder ordered for further evaluation of rotator cuff tendon tear, which will aid in next steps in treatment with surgical referral return to clinic in 2 weeks (4) Tendonitis of left rotator cuff: Code(s): M75.82 - Other shoulder lesions, left shoulder Category: Medical Plan: See above (5) Transaminitis: Code(s): R74.01 - Elevation of levels of liver transaminase levels Category: Medical Plan: Repeat LFTs this visit (6) Paresthesia of bilateral legs: Code(s): R20.2 - Paresthesia of skin Category: Medical Plan: EMG bilateral lower extremities ordered (7) Inflammatory arthritis: Comment: New onset 02/2024. Resolved on current exam but she continues to have polyarthralgias. Labs revealed negative ALONSO, anti CCP antibody, rheumatoid factor, lupus specific markers anti Joseph antibody, double-stranded DNA and complements. Inflammatory arthritis is a rare manifestation of dermatomyositis. Code(s): M19.90 - Unspecified osteoarthritis, unspecified site Category: Medical Plan: If LFTs normalized, I will increase methotrexate Orders: Orders MR shoulder RT wo con Today G89.29 - Other chronic pain, M25.512 - Pain in left shoulder, M75.82 - Other shoulder lesions, left shoulder Alanine Aminotransferase Today M33.13 - Other dermatomyositis without myopathy, R20.2 - Paresthesia of skin, R74.01 - Elevation of levels of liver transaminase levels, Z79.899 - Other fdc (current) drug therapy Aspartate Amino Transferase Today M33.13 - Other dermatomyositis without myopathy, R20.2 - Paresthesia of skin, R74.01 - Elevation of levels of liver transaminase levels, Z79.899 - Other manager terminal (current) drug therapy Erythrocyte Sedimentation Rate Today M33.13 - Other dermatomyositis without myopathy, R20.2 - Paresthesia of skin, R74.01 - Elevation of levels of liver transaminase levels, Z79.899 - Other manager terminal (current) drug therapy Aldolase Today M33.13 - Other dermatomyositis without myopathy, R20.2 - Paresthesia of skin, R74.01 - Elevation of levels of liver transaminase levels, Z79.899 - Other manager terminal (current) drug therapy NE nerve conduction velocity Today R20.2 - Paresthesia of skin C Reactive Protein Today M33.13 - Other dermatomyositis without myopathy, R20.2 - Paresthesia of skin, R74.01 - Elevation of levels of liver transaminase levels, Z79.899 - Other manager terminal (current) drug therapy Creatine Kinase Total Today M33.13 - Other dermatomyositis without myopathy, R20.2 - Paresthesia of skin, R74.01 - Elevation of levels of liver transaminase levels, Z79.899 - Other manager terminal (current) drug therapy TSH reflex Free T4 Today M33.13 - Other dermatomyositis without myopathy, R20.2 - Paresthesia of skin, R74.01 - Elevation of levels of liver transaminase levels, Z79.899 - Other manager terminal (current) drug therapy Hemoglobin A1c Today M33.13 - Other dermatomyositis without myopathy, R20.2 - Paresthesia of skin, R74.01 - Elevation of levels of liver transaminase levels, Z79.899 - Other manager terminal (current) drug therapy NE electromyogram (EMG) Today R20.2 - Paresthesia of skin Medications: Changed From methotrexate sodium Labs due in 4 weeks. Replace mycophenolate mofetil. Fill this rx. 15 mg (6 x 2.5 mg) PO QWEEK 4 weeks 24 tabs 0RF To methotrexate sodium Labs due in 4 weeks. No refills until labs are done. Increase dose. 20 mg (8 x 2.5 mg) PO QWEEK 32 tabs 0RF 4 weeks Coding Level of Care Code Est Pt Level 4 (33815) Complex EM visit Add On G2211 Diagnoses Dermatomyositis M33.13 Other manager terminal (current) drug therapy Z79.899 Chronic left shoulder pain M25.512; G89.29 Chronicity: chronic Tendonitis of left rotator cuff M75.82 Transaminitis R74.01 Paresthesia of bilateral legs R20.2 Inflammatory arthritis M19.90
[2024-08-24 12:50] VITALS: BP 130/80; PULSE 80; O2SAT 98; BMI 40.1
--- OUTSIDE RECORDS SUMMARY | 2024-08-24 14:28 | XMS_ITS | Clinical Summary ---
Author Organization [facility] Address [address] [place] [address] Care Team Providers Care Medical Numerical Control Operator Name Role Phone Ivette Resendez PA-C Primary Care Provider [phone] Source Comments PLEASE NOTE, if this patient [...] unspecified SLE type, unspecified organ involvement status ([facility]) 3 tabs po daily for 1 week, [...] unspecified SLE type, unspecified organ involvement status ([facility]),Chronic left-sided low back pain with bilateral sciatica [...] unspecified SLE type, unspecified organ involvement status ([facility]),Chronic left-sided low back pain with bilateral sciatica [...] r ecurrent episode, severe with anxious distress ([facility]) 11/02/2019 Thickened endometrium 05/202002/13/2016 Overview (05/21/2020): Result type: US Pelvic Transvaginal Result date: May 18, 2020 17:53 EST Result status: Auth (Verified) Result title: US Pelvic Transvaginal Performed by: Fletcher Meza DO on May 18, 2020 18:05 EST Verified by: Fletcher Meza DO on May 18, 2020 18:05 EST Encounter info: [id number], [facility], [...] Yellow message has been communicated via the Race Yourself system on 05/18/2020 6:05 PM, Message ID [id number]. WSN: [id number] Ordering Physician: Ivette Resendez Signature Line Dictated By: Fletcher Meza DO Dictated Date/Time: 05/18/20 6:05 pm Reviewed By: Fletcher Meza DO Signed By: Fletcher Meza DO Signed Date/Time: 05/18/20 6:05 pm Transcribed By: VICKI Transcribed Date/Time: 05/18/20 5:57 pm US Pelvis - 02/12/16 - [id number] History: Dysmenorrhea, excessive bleeding. . LMP 01/27/2016. [...] endometrial hyperplasia or neoplasm. Recommend direct visualization. [id number] A Important message has been communicated to the office of JOSE ANGEL GROVER via the Lotame Result system on 02/12/2016 5:06 PM, Message ID [id number]. Dictating Physician: JOE GOLD MD Electronically Signed [...] April 05, 2022 22:28 EST Encounter info: [id number], [facility], [...] Diffuse uterine adenomyosis. 4. Well-positioned IUD. WSN: [id number] Ordering Physician: Barbara Hunter Signature Line Dictated [...] Description 07/08/2024 10:00 AM EDT / Visits [address] [address] [place], [place] Major depressive disorder, recurrent episode, severe with anxious distress ([facility]) (Primary Dx); Complicated grieving; Complicated grief 06/07/2024 1:00 PM EDT / Visits [address] [address] [place], [place] Major depressive disorder, recurrent [...] 76 04/13/2024 10:38 AM EST Temperature 36.7 C (98 F) 04/13/2024 10:38 AM EST Respiratory Rate 18 04/13/2024 10:3 [...] Description 09/13/2024 8:40 AM EDT Office Visit [facility] [address] [place] [address] Ivette Resendez PA-C [address] [place] [phone] Health Maintenance Due Date Last Done Comments Urine Drug Screen 1970 Imm-Pneumococcal (1 of 2 - PCV) 1987 CT Colonography 2013 Colonoscopy 2013 Colorectal Cancer Screening 2013 FIT/gFOBT 2013 Fecal DNA 2013 Flexible Sigmoidoscopy 2013 Imm-Zoster, Recombinant (1 of 2) 2018 Anxiety Screening 08/02/2021 08/02/2020 Annual Wellness (Adult): Indicated (All Coverage) 11/23/2021 11/23/2020, 01/17/2020, 01/21/2018, Additional history exists [id number] ( season) 2023 Depression Monitoring 02/06/2024 11/06/2023 [...] 3:00 AM EDT) 05/24/2024 3:00 AM EDT Ivtete Resendez PA-C SCAN REFERRAL Final Result * LAB SCANNED DOCUMENT (05/24/2024 3:00 AM EDT) Only the most recent of2 resultswithin the time period is included. 05/24/2024 3:00 AM EDT Ivette Resendez PA-C SCAN LAB Final Result * (ABNORMAL) ASSAY OF THYROID STIMULATING HORMONE TSH (02/24/2024 4:17 PM EST) TSH 0.05(L) 0.40 - 4.50 mIU/L [employer] [employer] Comment: Reference Range > or = 20 Years 0.40-4.50 Ranges First trimester 0.26-2.66 Second trimester 0.55-2.73 Third trimester 0.43-2.91 Blood Blood / Unknown 02/24/2024 4 :17 PM EST 02/24/2024 4:18 PM EST Narrative u[facility]sit [facility] - 02/25/2024 6:29 AM EST FASTING:NO Kirt Elliott MANAGER SAP LAB - BLOOD DRAW F inal Result u.sit [address] [address], [employer] [address] [address] * SCREENING MAMMOGRAM BILATERAL (11/23/2023 3:00 AM EDT) 11/23/2023 3:00 AM EDT Ivette Resendez PA-C IMG MAMMO Final Result * (ABNORMAL) HEMOGLOBIN GLYCOSYLATED A1C (09/21/2023 12:44 PM EDT) HEMOGLOBIN A1C 5.9(H) <5.7 % of total Hgb [facility] Comment: For someone without known diabetes, a [...] PM EDT 09/21/2023 12:44 PM EDT Narrative [facility] - 09/22/2023 7:29 AM EDT FASTING:NO us Ivette Resendez PA-C LAB - BLOOD DRAW Edited Resu lt - Final [facility] [address] [place] [address], [employer] [address] [address] * (ABNORMAL) LIPID PANEL (09/21/2023 12:44 PM EDT) CHOLESTEROL, TOTAL 238(H) <200 mg/dL [employer] [facility] HDL CHOLESTEROL 75 > OR = 50 mg/dL [facility] TRIGLYCERIDES 74 <150 mg/dL [employer] [facility] LDL-CHOLESTEROL 145(H) 99 mg/dL (calc) [employer] [facility] Comment: Reference range: <100 Desirable range <100 mg/dL for primary prevention; <70 mg/dL for patients with CHD or diabetic patients with > or = 2 CHD risk factors. LDL-C is now calculated using the Bayron-Kvng calculation, which is a validated novel method providing better accuracy than the Friedewald equation in the estimation of LDL-C. Bayron SS et al. BLAINE. 2013;310(19): 1347-7576 (http://education.Fusion Antibodies/faq/KUU959) CHOL/HDLC RATIO 3.2 <5.0 (calc) [facility] NON-HDL CHOLESTEROL 163(H) <130 mg/dL (calc) [facility] Comment: For patients with diabetes plus 1 major ASCVD risk factor, treating to a non-HDL-C goal of <100 mg/dL (LDL-C of <70 mg/dL) is considered a therapeutic option. Blood Blood / Unknown 09/21/2023 1 2:44 PM EDT 09/21/2023 12:44 PM EDT Narrative [facility] - 09/22/2023 7:29 AM EDT FASTING:NO us Ivette Resendez PA-C LAB - BLOOD DRAW Final Resul t [facility] [address] [place] [address], [employer] [address] [place] [phone] * (ABNORMAL) THIN PREP IMAGE PAP + HPV RNA E6/E7 W/RFLX HPV 16, 18/45 (04/09/2023 11:55 AM EST) CLINICAL INFORMATION See Note [facility] Comment:ABNORMAL BRUSH HEAD [employer]KER EXAM LMP See Note [employer] Comment:[id number] PREV. PAP [facility] PREV. BX [facility] SOURCE See Note [employer] [employer] Comment:Cervix STATEMENT OF ADEQUACY See Note [facility] Comment: Satisfactory for evaluation. Endocervical/transformation zone component present. GENERAL CATEGORIZATION See Note(A) [facility] Comment:Cytology Results: Ep ithelial Cell Abnormality INTERPRETATION/RESU LT See Note(A) [facility] Comment: Atypical Squamous Cells of Undetermined Significance (ASC-US) COMMENT See Note [facility] Comment: This Pap test has been evaluated with computer assisted technology. Batres portions of this case have been reviewed by one or more pathologists. INDUSTRIAL SEWER See Note [facility] [employer] Comment: WXW, CT(ASCP) CT Screening Location: [address] [address] PATHOLOGIST See Note [employer] Comment: Simran Joseph D.O. Board Certified in Anatomic, Clinical and Cytopathology (electronic signature) Consulting Pathologist [facility] [address] [place] [address] [phone] COMMENT [facility] HPV MRNA E6/E7 Detected (A) Not Detected [facility] Comment: Methodology: [employer] Services-Mediated Amplification This assay detects E6/E7 viral messenger RNA (mRNA) from 14 high-risk HPV types (16,18,31,33,35,39,45,51,52,56,58,59,66,68). Cervical sources are required for HPV testing. If a vaginal source from a patient who has had a total hysterectomy with removal of cervix was submitted, please contact the testing laboratory for alternative testing options. For additional information, please refer to http://education.HyperBees/faq/KBC862z0 (This link if provided for information/ educational purposes only.) Swab Vaginal structure / Unknown 04/09/2023 11:55 AM EST 04/10/2023 7:18 AM EST Narrative u[facility]sit [facility] - 04/16/2023 4:29 PM EST EXPLANATORY [...] information. us Paloma Formisano DO LAB - PATHOLOGY AND CYTOLOGY A MBULATORY Final Result u[facility]sit [address] [address], [employer] [address] [address] * COLPOSCOPY, ABSTRACTED (03/12/2022 8:33 AM EST) Impressions Ivetet Resendez PA-C - 03/12/2022 8:33 AM EST Result type: Surgical Pathology Result date: March 12, 2022 8:00 EST Result status: Auth (Verified) Result title: Surgical Pathology Performed by: Mendy Hernandez MD on March 12, 2022 8:00 EST Verified by: Mendy Hernandez MD on March 12, 2022 8:00 EST Encounter info: [id number], Aurelio TORREStaaren, 03/12/2022 - 03/12/2022 Contributor system: [email or web address] * Final Report * Surgical Pathology Patient Name: SHAKIR BARNETT Lab Patient : 1970 (Age: 51) Collection Date: 03/12/2022 Accession Date: 03/12/2022 Sign Out Date: 03/17/2022 Tissue Source: 1:CERVIX AT 1 OCLOCK 2:ENDOCERVICAL CURETTINGS 3:ENDOMETRIAL POLYP 4:ENDOMETRIAL CURETTINGS Final Diagnosis: 1. Cervix, 1 o'clock, biopsy: - Squamous epithelium, negative for squamous intraepithelial lesion. - Squamocolumnar junction is not identified in the specimen submitted, multiple additional deeper recuts examined. 2. Endocervix, curettage: - Fragments of endocervical epithelium with squamous metaplasia and reactive epithelial changes. - Negative for squamous intraepithelial lesion. 3. Endomtrial polyp, polypectomy: - Fragments of benign endometrial polyp with background inactive endometrium showing pseudodecidualized stroma consistent with exogenous hormone (progestin) effect. 4. Endometrium, curettage: - Inactive endometrium with pseudodecidualized stroma consistent with exogenous hormone (progestin) effect and evidence of stromal and glandular breakdown. - Fragments of squamous epithelium with reactive changes. [...] entirely submitted. 1-multiple pieces, x2. (EG)* Part 3. Labeled endometrial polyp . Received [...] and 2-multiple pieces, x2. (EG)* Phone #: [phone], On-Call Pathologist: [id number] us Provider [facility] PROCEDURES Final Result * (ABNORMAL) PAP SMEAR W/HPV (11/22/2021) PAP SMEAR INTERPRETATION NORMAL NORMAL [facility] HPV (HUMAN PAPILLOMA) POSITIVE(A) NEGATIVE [facility] HPV TYPE 16 POSITIVE NEGATIVE [facility] HPV TYPE 18 POSITIVE NEGATIVE [facility] Swab 11/22/2021 Impressions [facility] - 11/22/2021 8:35 AM EDT Result type: Cytology Reports BR[employer] PAP Test Result date: November 22, 2021 21:06 EDT Result status: Auth (Verified) Result title: Cytology Reports BRUSH HEAD [employer]KER PAP Test Encounter info: [id number], [facility], [employer], 11/22/2021 - 11/22/2021 Contributor system: [email or web address] * Final Report * Cytology Reports BRUSH HEAD MAKER PAP Test Patient Name: SAVANNAH BARNETT Patient : 1970 (Age: 51) Lab Collection Date: 11/22/2021 Accession Date: 11/23/2021 Sign Out Date: 11/28/2021 Tissue Source: 1: THINPREP BRUSH HEAD MAKER PAP TEST, CERVICAL: Final Diagnosis: NEGATIVE FOR INTRAEPITHELIAL LESION OR MALIGNANCY. Fungal organisms morphologically consistent with Tiffanie spp. Satisfactory for evaluation. Endocervical/transformation zone ABSENT. Procedures/Addenda: Human Papilloma Virus, High-Risk (Any Dx) Status: Signed Out Interpretation: POSITIVE Methodology: Wiper Aptima HPV mRNA assay (Nucleic Acid Amplification Test, NAAT). Clinical History: Date of Last Menstrual Period: 11/07/21 Menstrual History: not available Contraceptive History: not available Ancillary Testing: HPV (any dx) Case imaged by the [employer] Mobile Apps[employer] Imaging System with manual rescreening or review. Clinical History (other): Routine cervical cancer screening Phone #: [phone], On-Call Pathologist: [id number] us Provider [facility] LAB - PATHOLOGY AND CYTOLOGY AMB ULATORY Final Result [facility] [address] [place] [address], [place] * (ABNORMAL) HEPATITIS A,B,C PANEL (01/17/2020 2:11 PM EST) HEPATITIS B SURFACE ANTIBODY NEGATIVE NEGATIVE [facility] HEPATITIS B SURFACE ANTIGEN NEGATIVE NEGATIVE [facility] Comment: Over the counter supplements containing high doses of biotin may interfere with this assay. If interference is suspected, patients shoud be retested after refraining from biotin supplements for 72 hours. HEPATITIS C VIRUS DIAGNOSTIC NEGATIVE NEGATIVE [facility] HEPATITIS A ANTIBODY TOTAL POSITIVE(A) NEGATIVE [facility] Comment: Over the counter supplements containing high doses of biotin may interfere with this assay. If interference is suspected, patients shoud be retested after refraining from biotin supplements for 72 hours. HEPATITIS B CORE ANTIBODY NEGATIVE NEGATIVE [facility] Blood Blood / Unknown 01/17/2020 2 :11 PM EST 01/17/2020 3:56 PM EST [employer] - 01/17/2020 6:33 PM EST [email or web address], [place] [address] Channel Marketing Specialist [place] [id number] ORD# [id number] Ivette Resendez PA-C LAB - BLOOD DRAW [place] [address], * HIV-1 & HIV-2 ANTIBODIES (01/17/2020 2:11 PM EST) HIV 1 AND 2 ANTIBODY SCREEN NEGATIVE NEGATIVE [facility] Comment: This assay is a 4th generation assay allowing for earlier detection of HIV infection by detecting the presence of the HIV-1 p24 antigen as well as the traditional antibodies to HIV type 1 (including group O) and type 2. Use of a 4th generation assay is the current CDC recommendation for HIV screening. Blood Blood / Unknown 01/17/2020 2 :11 PM EST 01/17/2020 3:56 PM EST [employer] - 01/17/2020 7:02 PM EST [employer], a member of [facility] [address] [place] [address] Channel Marketing [place] - [place] [id number] ORD# [id number] Ivette Resendez PA-C LAB - BLOOD DRAW Final Resul t [facility] [address] [place] [address], from Last 3 Months or Most Recently Relevant to Health Maintenance Insurance PA [employer] [facility] [employer] [facility] [employer]OPER[employer] ACO Care Teams Medical Numerical Control Operator Relationship Specialty Start Date End Date Ivette Resendez PA-C [address] [place] [address] PCP - General 02/08/13
== END 2024-08-24 13:19 | disposition home or self-care (01) ==
LOC: HO.RHES 12:41
PROVIDERS: PCP Physician Assistant; Visit Provider Internal Medicine Rheumatology
DX: M33.13 Other dermatomyositis without myopathy (principal); Z79.899 Other long term (current) drug therapy; M25.512 Pain in left shoulder; G89.29 Other chronic pain; M75.82 Other shoulder lesions, left shoulder; R74.01 Elevation of levels of liver transaminase levels; R20.2 Paresthesia of skin; M19.90 Unspecified osteoarthritis, unspecified site
CPT/HCPCS: 99214

== ENCOUNTER 2024-08-24 13:53 | Outpatient (REF) | payer MEDICAID, SELFPAY ==
[2024-08-24 18:25] LABS: Alanine Aminotransferase 25 U/L (0-31); Aspartate Amino Transferase 28 U/L (5-31); C Reactive Protein 0.21 mg/dL (< or = 0.50)
[2024-08-24 18:40] LABS: TSH reflex Free T4 0.34 uIU/mL (0.32-4.0)
[2024-08-24 19:01] LABS: Erythrocyte Sedimentation Rate 10 MM/HR (0-20)
[2024-08-25 07:19] LABS: Estimated Average Glucose 117 mg/dL; Hemoglobin A1C 137.1276 umol/L; Hemoglobin A1c % 5.7 % (<6.0); Total Hemoglobin (HGBA1C) 3521.2077 umol/L
[2024-08-30 14:14] LABS: Aldolase 4.4 U/L (<=8.1)
== END 2024-08-24 13:54 | disposition home or self-care (01) ==
LOC: HO.HKASLDS 13:53
PROVIDERS: Visit Provider Internal Medicine Rheumatology
DX: M33.13 Other dermatomyositis without myopathy (principal); Z79.899 Other long term (current) drug therapy; R20.2 Paresthesia of skin; R74.01 Elevation of levels of liver transaminase levels; G89.29 Other chronic pain; M25.512 Pain in left shoulder; M19.90 Unspecified osteoarthritis, unspecified site
CPT/HCPCS: 36415; 82085; 82550; 83036; 84443; 84450; 84460; 85652; 86140; 99212

== ENCOUNTER 2024-09-13 13:16 | Outpatient (AMB) | payer MEDICAID, SELFPAY ==
--- NOTE | 2024-09-13 13:18 | A.OFFVIS_ITS ---
Vital Signs 09/13/24 13:19 Height 5 ft 2 in Weight 222 lb 0.088 oz BMI 40.6 BP 120/70 Blood Pressure Location Rt brachial Position Sitting Pulse 93 Pulse Source Pulse Oximeter Pulse Oximetry (%) 97 Oxygen Delivery Method Room Air Intake Visit Reasons: follow up Intake Note: Patient presents today for a follow up for lupus. Allergies demarol Allergy (Severe, Uncoded 02/24/24 13:47) Anaphylaxis HPI HPI follow up: Details: Pain in hips at night Rash is still present on face. She has pruritus. She is tolerating higher dose of methotrexate. [facility] Medical History Recurrent dislocation of right upper arm Physical Exam Vital Signs: Last Vital Signs Pulse 93 09/13/24 13:19 BP 120/70 09/13/24 13:19 Pulse Ox 97 09/13/24 13:19 Oxygen Delivery Method Room Air 09/13/24 13:19 BMI result Body Mass Index 40.6 Const Other: General: Comfortable CVS: RRR Respiratory: clear to auscultation bilaterally. Good respiratory effort Skin: No lesions seen MSK: Bilateral shoulder tenderness with limited abduction past 160 degrees of left shoulder. Internal and external rotation of left shoulder is painful but full. No synovitis. Tender bilateral trochanteric bursae. Limited full external rotation of left hip due to pain. Office Procedures AMB Joint Injection/Aspiration Joint Injection/Aspiration Details: Bilateral trochanteric bursa Prep: site was prepped using aseptic technique Injected into each site: 40 mg of, Kenalog, with 1 mL of and 1% plain lidocaine Procedure: Informed verbal consent was obtained. The patient tolerated the procedure well. Postprocedure protocol was discussed with patient. Coding 41173 - Large joint Procedure code (CPT) selection complete AMB Joint Injection/Aspiration Coding 64476 - Bilateral Large Joint Procedure code (CPT) selection complete Office Meds lidocaine (PF) 10 mg/mL (1 %) injection solution Performing Provider: Mati Shields MD Performing Location: [facility] Rheumatology-[facility] Documented (not given) by: Mati Shields MD on 09/13/24 14:01 Dose Route Admin Location Dispensed Lot Number Expiration Date NDC Vector Control Specialist 10 mg Infiltration mL Total Dispensed Waste n/a n/a Kenalog 40 mg/mL suspension for injection Performing Provider: Mati Shields MD Performing Location: [facility] Rheumatology[place] Documented (not given) by: Mati Shields MD on 09/13/24 14:01 Dose Route Admin Location Dispensed Lot Number Expiration Date NDC Vector Control Specialist 40 mg intrabursal mL Total Dispensed Waste n/a n/a lidocaine (PF) 10 mg/mL (1 %) injection solution Performing Provider: Mati Shields MD Performing Location: [facility] Documented (not given) by: Mati Shields MD on 09/13/24 14:01 Dose Route Admin Location Dispensed Lot Number Expiration Date NDC Vector Control Specialist 10 mg Infiltration mL Total Dispensed Waste n/a n/a Kenalog 40 mg/mL suspension for injection Performing Provider: Mati Shields MD Performing Location: [facility] Documented (not given) by: Mati Shields MD on 09/13/24 14:01 Dose Route Admin Location Dispensed Lot Number Expiration Date NDC Vector Control Specialist 40 mg intrabursal mL Total Dispensed Waste n/a n/a Assessment & Plan Assessment & Plan (1) Dermatomyositis: Comment: Cutaneous manifestation of dermatomyositis is not completely controlled on therapy with hydroxychloroquine and methotrexate and another course of prednisone. She developed inflammatory arthritis involving her hands with synovitis treated with a course of prednisone but continued to have polyarthralgias better controlled on higher dose of methotrexate. She developed weakness in her bilateral lower extremities with paresthesias-workup has revealed prediabetes, which can manifest with peripheral neuropathy in rare occasions. With normal inflammatory markers and muscle enzymes her weakness is less likely related to myositis. 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 Hydroxychloroquine 08/2021- and MMF 08/2021-05/2024 relapse cutaneous disease. MTX 05/2024-. Code(s): M33.13 - Other dermatomyositis without myopathy Category: Medical Plan: Labs for drug monitoring ordered Continue methotrexate 20mg once weekly Continue hydroxychloroquine 200 mg twice a day as it is better tolerated for patient. Eye exam OCT 04/2022. No visual field test. I am requesting patient call [facility] for eye exam for visual field testing and OCT exam x2 request Bilateral lower extremity EMG ordered Return to clinic in 3 months (2) Greater trochanteric bursitis of both hips: Code(s): M70.61 - Trochanteric bursitis, right hip; M70.62 - Trochanteric bursitis, left hip Category: Medical Plan: Patient received cortisone injections to treat bilateral trochanteric bursitis this visit Return to clinic in 3 months (3) Other dedicated intermodal truck driver (current) drug therapy: Code(s): Z79.899 - Other residential (current) drug therapy Category: Medical Plan: See above (4) Left shoulder pain: Comment: Chronic likely due to rotator cuff tendinopathy. X-ray revealed mild AC joint arthritis. Unable to participate in PT due to uncontrolled pain. Repeat cortisone injection provides temporary relief. Failed Tylenol and nabumetone Code(s): M25.512 - Pain in left shoulder Category: Medical Qualifiers: Chronicity: chronic Qualified Code(s): M25.512 - Pain in left shoulder; G89.29 - Other chronic pain Plan: MRI left shoulder ordered for further evaluation of rotator cuff tendon tear, which will aid in next steps in treatment with surgical referral. She has an appointment for September 17 Return to clinic in 3 months (5) Tendonitis of left rotator cuff: Code(s): M75.82 - Other shoulder lesions, left shoulder Category: Medical Plan: See above (6) Transaminitis: Comment: Resolved with most recent testing Code(s): R74.01 - Elevation of levels of liver transaminase levels Category: Medical Plan: Monitoring LFTs closely while on methotrexate (7) Paresthesia of bilateral legs: Comment: Recent workup reveals that she has prediabetes. Prediabetes can rarely present with lower extremity neuropathy Code(s): R20.2 - Paresthesia of skin Category: Medical Plan: EMG bilateral lower extremities ordered last visit for further evaluation Return to clinic in 3 months (8) Inflammatory arthritis: Comment: New onset 02/2024. Resolved. She continues to have polyarthralgias but exam is unremarkable likely due response from higher dose of methotrexate. Labs revealed negative ALONSO, anti CCP antibody, rheumatoid factor, lupus specific markers anti Joseph antibody, double-stranded DNA and complements. Inflammatory arthritis is a rare manifestation of dermatomyositis. Code(s): M19.90 - Unspecified osteoarthritis, unspecified site Category: Medical Plan: Treatment with methotrexate as above (9) Prediabetes: Comment: Hemoglobin A1c 5.7 08/24/2024 Code(s): R73.03 - Prediabetes Category: Medical Plan: Follow up with PCP for management Orders: Orders AMB Joint Injection/Aspiration Today M70.61 - Trochanteric bursitis, right hip, M70.62 - Trochanteric bursitis, left hip AMB Joint Injection/Aspiration Today M70.61 - Trochanteric bursitis, right hip, M70.62 - Trochanteric bursitis, left hip Medications: New Kenalog (triamcinolone acetonide) 40 mg intrabursal ONCE 1 mL 0RF NS M70.61 - Trochanteric bursitis, right hip, M70.62 - Trochanteric bursitis, left hip lidocaine (PF) 10 mg Infiltration ONCE 1 mL 0RF M70.61 - Trochanteric bursitis, right hip, M70.62 - Trochanteric bursitis, left hip lidocaine (PF) 10 mg Infiltration ONCE 1 mL 0RF M70.61 - Trochanteric bursitis, right hip, M70.62 - Trochanteric bursitis, left hip Kenalog (triamcinolone acetonide) 40 mg intrabursal ONCE 1 mL 0RF NS M70.61 - Trochanteric bursitis, right hip, M70.62 - Trochanteric bursitis, left hip Coding Level of Care Code Est Pt Level 4 (64047) Complex EM visit Add On G2211 Diagnoses Dermatomyositis M33.13 Greater trochanteric bursitis of both hips M70.61; M70.62 Other residential (current) drug therapy Z79.899 Chronic left shoulder pain M25.512; G89.29 Chronicity: chronic Tendonitis of left rotator cuff M75.82 Transaminitis R74.01 Paresthesia of bilateral legs R20.2 Inflammatory arthritis M19.90 Prediabetes R73.03 CPT Codes Coding - 13038 Large joint: 20443 - Large joint ([id number]) Coding - 40616 - Bilateral Large Joint: 96273 - Bilateral Large Joint ([id number])
[2024-09-13 13:19] VITALS: BP 120/70; PULSE 93; O2SAT 97; BMI 40.6
--- OUTSIDE RECORDS SUMMARY | 2024-09-13 13:58 | XMS_ITS | Clinical Summary ---
Author Organization [facility] Address [id number] [place] [phone] Care Team Providers Care Registrar [employer] Name Role Phone Ivette Resendez Primary Care Provider [phone] Surgical History Surgery Date Site/Laterality Comments CHOLECYSTECTOMY PROCEDURE: [place] LAPAROSCOPY SURG CHOLECYSTECTOMY Medical History Medical History [...] Years (1 of 2 - PCV) 1987 Zoster Vaccines (1 of 2) 1987 Colorectal Cancer Screening: Colonoscopy 02/15/2022 Depression Screening 02/15/2022 HIV Screening 02/15/2022 Hepatitis C Screening 02/15/2022 Social Influencers of Health Screening 02/15/2022 Cervical Cancer Screening: P ap Smear 06/12/2023 06/11/2020 Breast Cancer Screening 11/09/2023 11/09/19 22, 07/20/2020 DTaP,Tdap,and Td Vaccines (2 - Td or Tdap) 10/19/2024 10/19/2014 Influenza Vaccine (#1) 2024 HIB Vaccines Aged Out No longer [...] interpreted with the aid of computer-aided detection. Comparison is made with 07/20/2020. Breast parenchyma is composed of scattered fibroglandular densities. No new suspicious mass, architectural distortion, or suspicious [...] evidence of malignancy. BI-RADS 1 - negative us Derrell Luna DO IMG XR PROCEDURES Final Resul t * Pap smear (06/11/2020) 06/11/2020 Narrative HISTORICAL TESTING LAB RESULTING AGENCY - 06/18/2020 2:05 PM EDT [id number] THINPREP PAP, IMAGED: NEGATIVE FOR SQUAMOUS INTRAEPITHELIAL LESION AND MALIGNANCY . REACTIVE CELLULAR CHANGES. ENDOMETRIAL CELLS ARE PRESENT. ALEX KEMP , CT(ASCP) (CASE SCREENED 06 14 2020) KAY DU M.D. , PATHOLOGIST (CASE ELECTRONICALLY SIGNED 06 15 2020) RESULT OF APTIMA HIGH RISK HPV ASSAY: HIGH RISK HPV: POSITIVE (SEROTYPES 16,18,31,33,35,39,45,51,52,56,58,59,66,68) RESULTS OF APTIMA HPV 16 AND 18/45 GENOTYPE ASSAY: HPV 16: NEGATIVE HPV 18/45: NEGATIVE COMPLETED ON 2020-06-14 ADEQUACY: SATISFACTORY ENDOCERVICAL/TRANSFORMATION ZONE COMPONENT ABSENT. SOURCE: THINPREP PAP HPV ANY DX: REFLEX 16 AND 18, CERVICAL, IMAGED CLINICAL INFORMATION: HPV ANY DIAGNOSIS. POS 2019 LSIL, BX NEG, LMP 05/11/20, Z12.4 Mary Reilly [facility] CYTOLOGY ORDERABLES Fin al Result HISTORICAL TESTING LAB RESULTING AGENCY from Last 3 Months or Most Recently Relevant to Health Maintenance Care Teams Registrar [employer] Relationship Specialty Start Date End Date Ivette Resendez PA [address] [place] [address] PCP - General Internal Medicine 02/13/17
--- OUTSIDE RECORDS SUMMARY | 2024-09-13 13:58 | XMS_ITS | Clinical Summary ---
Author Organization [facility] Address [address] [place] [address] Care Team Providers Care Matrix Repairer Name Role Phone Ivette Resendez PA-C Primary Care Provider [phone] Source Comments PLEASE NOTE, if this patient [...] OR WHEEZING 90 g 1 024 Active pregabalin (LYRICA) 150 mg capsuleIndicatio ns:Post herpetic neuralgia TAKE 1 CAPSULE BY MOUTH TWICE DAILY. DISCONTINUE GABAPENTIN 60 Capsule 3 025 Active predniSONE (DELTASONE) 10 mg tabletIndication s:Systemic lupus erythematosus, unspecified SLE type, unspecified organ involvement status ([facility]) 3 tabs po daily for 1 [...] BEFORE BREAKFAST 90 Capsule 1 025 Active lidocaine (LIDODERM) 5 % patchIndications :Lumbar radiculopathy APPLY 1 PATCH TO TO THE AFFECTED AREA FOR 12 HOURS. THEN GO WITHOUT FOR 12 HOURS. 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 Max Daily Amount: 50 mg 30 Tablet 2 025 Active levothyroxine 125 mcg tabletIndication s:Hypothyroidism , unspecified type TAKE 1 TABLET BY MOUTH EVERY MORNING BEFORE BREAKFAST 90 Tablet 025 Active mirabegron ER (MYRBETRIQ) 25 mg [id number]: Lower urinary tract symptoms (LUTS) Take 1 Tablet by mouth nightly at bedtime. 90 Tablet 1 025 Active metroNIDAZOLE (FLAGYL) 500 mg tabletIndication s:Subacute vaginitis Take 1 Tablet by mouth 2 (two) times daily for 7 days. 14 Tablet 025 2024 Active methotrexate 2.5 mg tabletIndication s:Systemic lupus erythematosus, unspecified SLE type, unspecified organ involvement status ([facility]) Take 1 Tablet by mouth once a week. 025 Active hydroxychloroqui ne (PLAQUENIL) 200 mg tabletIndication s:Systemic lupus erythematosus, unspecified SLE type, unspecified organ involvement status ([facility]) Take by mouth once daily. 025 Active levothyroxine 125 mcg tabletIndication s:Hypothyroidism , unspecified type Take 1 Tablet by mouth every morning before breakfast. 90 Tablet 025 2024 Discontinued Active Problems Problem Noted Date [...] r ecurrent episode, severe with anxious distress ([facility]) 11/02/2019 Thickened endometrium 05/202002/13/2016 Overview (05/21/2020): Result type: US Pelvic Transvaginal Result date: May 18, 2020 17:53 EST Result status: Auth (Verified) Result title: US Pelvic Transvaginal Performed by: Fletcher Meza DO on May 18, 2020 18:05 EST Verified by: Fletcher Meza DO on May 18, 2020 18:05 EST Encounter info: [id number], [facility] [place], 05/18/2020 - 05/18/2020 * [...] Yellow message has been communicated via the Character Booster system on 05/18/2020 6:05 PM, Message ID [id number]. WSN: [id number] Ordering Physician: Ivette Resendez Signature Line Dictated By: Fletcher Meza DO Dictated Date/Time: 05/18/20 6:05 pm Reviewed By: Fletcher Meza DO Signed By: Fletcher Meza DO Signed Date/Time: 05/18/20 6:05 pm Transcribed By: VICKI Transcribed Date/Time: 05/18/20 5:57 pm US Pelvis - 02/12/16 - 6 History: Dysmenorrhea, excessive bleeding. . LMP 01/27/2016. [...] endometrial hyperplasia or neoplasm. Recommend direct visualization. [id number] A Important message has been communicated to the office of JOSE ANGEL GROVER via the Connexin Software Notification Result system on 02/12/2016 5:06 PM, Message ID [id number]. Dictating Physician: JOE GOLD MD Electronically Signed [...] April 05, 2022 22:28 EST Encounter info: [id number], [facility] [place], 04/05/2022 - 04/05/2022 * [...] Diffuse uterine adenomyosis. 4. Well-positioned IUD. WSN: [id number] Ordering Physician: Barbara Hunter Signature Line Dictated By: Nuvia Stokes MD Dictated Date/Time: 04/05/22 10:28 p Reviewed By: Nuvia Stokes MD Signed By: Nuvia Stokes MD Signed Date/Time: 04/05/22 10:28 pm Transcribed By: VICKI Transcribed Date/Time: 04/05/22 4:53 pm US Pelvic Transabdominal This document has an image Complicated grieving 12/01/2019 023 Encounters Date Type Department Care Team Description 09/13/2024 8:40 AM EDT Office Visit [address] [address] Ivette Resendez PA-C 08/29/2024 2:00 PM EDT BH/MH Visits [address] [address] Jena Hough LCSW 08/26/2024 Interim Notes [address] [address] Neeru Correa PA-C 07/08/2024 10:00 AM EDT BH/MH Visits [address] [address] Jena Hough LCSW from Last 3 Months Immunizations Immunization Administration Dates Next Due TDAP 09/13/2024 Social History Tobacco Use Types Packs/Day Years Used Date Smoking Tobacco: Never Passive Smoke Exposure: Never Smokeless Tobacco: Never Tobacco Cessation:Counseling Given: Yes Alcohol Use Standard Drinks/Week Comments No 0 (1 standard drink = 0.6 oz pur e alcohol) Social Connections Answer Date Recorded How often do you feel lonely or isolated from th ose around you? 1 11/06/2023 Financial Resource Strain Answer Date R ecorded Hard to pay for: Food 1 11/06/2023 Stress Answer Date Recorded Do you feel these kinds of stress these days? 1 11/06/2023 Physical Activity Answer Date Recorded Physical Activity 0 10/27/2018 Food Insecurity Answer Date Recorded Hard to pay for: Food 1 11/06/2023 Transportation Needs Answer Date Record ed Hard to pay for: Transportation 1 11/06/2023 Housing Stability Answer Date Recorded Hard to pay for: Rent/Mortgage payment 1 11/06/2023 Safety and Environment Answer Date Celso rded Safety 0 07/04/2022 Utilities Answer Date Recorded Hard to pay for: Utilities 1 11/05 Employment Answer Date Recorded Stress 0 07/04/2022 Comments No Sex and Gender Information Value Date Recorded Sex Assigned at Female 10/12/2017 4:15 PM PDT Legal Sex Female 11:36 AM PDT Gender Identity Female 10/12/2017 4:15 PM PDT Sexual Orientation Straight 10/12/2017 4: 15 PM PDT Last Filed Vital Signs Vital Sign Reading Time Taken Comments Blood Pressure 128/88 09/13/2024 9:01 AM EDT Pulse 77 09/13/2024 9:01 AM EDT Temperature 37 C (98.6 F) 09/13/2024 9:01 AM EDT Respiratory Rate 16 09/13/2024 9:01 AM EDT Oxygen Saturation 98% 03/03/2024 9:28 AM EST Inhaled Oxygen Concentration - - Weight 100.7 kg (222 lb) 09/13/2024 9:01 AM EDT Height 157.5 cm (5' 2 ) 09/13/2024 9:01 AM EDT Body Mass Index 40.6 09/13/2024 9:01 AM EDT Plan of Treatment Upcoming Encounters Date Type Department Care Team (Late st Contact Info) Description 09/15/2024 11:00 AM EDT / Visits [facility] [address] [place] [address] Leeann Anderson, [facility] [address] [place] [address] Health Maintenance Due Date Last Done Comments STI Counseling 1970 Urine Drug Screen 1970 [id number] (#1) 1973 Imm-Hepatitis B (1 of 3 - 19 + 3-dose series) 1987 Imm-Pneumococcal 50+ (1 of 2 - PCV) 1987 Imm-Zoster, Recombinant (1 of 2) 1987 CT Colonography 2013 Colonoscopy 2013 Colorectal Cancer Screening 2013 FIT/gFOBT 2013 Fecal DNA 2013 Flexible Sigmoidoscopy 2013 Anxiety Screening 08/02/2021 08/02/2020 Diabetes Screening 09/20/2024 09/21/2023, 0 09/21/2023, 03/10/2023, Additional history exists Lipid Screening 09/20/2024 09/21/2023, 02/06, 07/15/2022, Additional history exists Imm-Influenza (#1) 2024 05/24/2014 (M anaged by Outside Provider), 02/08/2013 (Declined) Depression Monitoring 12/14/2024 09/13/2024 , 11/06/2023, 07/04/2022, Additional history exists TSH Monitoring 02/23/2025 02/24/2024, 09/06, 03/10/2023, Additional history exists Annual Wellness (Adult): Indicated (All Coverage) 09/13/2025 09/13/2024, 11/23/2020, 01/17/2020, Additional history exists Hypertension Screening (#1) 09/13/2025 Tobacco Screening 09/13/2025 09/13/2024 Breast Cancer Screening (Mammogram) 11/22/2025 11/23/2023 Pap Smear 04/09/2026 04/09/2023, 11/07, 11/23/2020, Additional history exists HPV Screening 11/22/2026 11/22/2021 Cervical Cancer Screening 04/09/2028 Pap + HPV 04/09/2028 04/09/2023, 11/07, 11/23/2020, Additional history exists Imm-DTaP/Tdap/Td (2 - Td or Tdap) 09/13/2034 025 HIV Screening Completed 01/17/2020 Hepatitis C Screening Completed 01/17/2020 Colposcopy Discontinued 03/12/2022, 05/06/2018 Alcohol and Drug Screen Completed 09/14/19 25, 11/06/2023, 07/28/2022, Additional history exists Cervical Ablation/Cold-Knife Conization Discontinued Cervical Cryotherapy Discontinued Endometrial Biopsy Discontinued Excision/Leep Discontinued HPV Genotyping Discontinued Vaginal Pap Discontinued Vulvoscopy Discontinued Procedures Procedure Name Priority Date/Time Associated Diagnosis Comments ASSAY OF THYROID STIMULATING HORMONE TSH Routine [...] unspecified SLE type, unspecified organ involvement status ([facility]) Mild vitamin D deficiency HEPATITIS A,B,C PANEL Routine 01/17/2020 2:11 PM EST Hypothyroidism, unspecified type Acute cystitis without hematuria Non morbid obesity Systemic lupus erythematosus, unspecified SLE type, unspecified organ involvement status ([facility]) Mild vitamin D deficiency from Last 3 Months or Most Recently Relevant to Health Maintenance Results * (ABNORMAL) ASSAY OF THYROID STIMULATING HORMONE TSH (02/24/2024 4:17 PM EST) TSH 0.05(L) 0.40 - 4.50 mIU/L [facility] Comment: Reference Range > or = 20 Years 0.40-4.50 Ranges First trimester 0.26-2.66 Second trimester 0.55-2.73 Third trimester 0.43-2.91 Blood Blood / Unknown 02/24/2024 4 :17 PM EST 02/24/2024 4:18 PM EST Narrative [facility] - 02/25/2024 6:29 AM EST FASTING:NO Kirt Elliott STAVE MACHINE TENDER LAB - BLOOD DRAW F inal Result [facility] [address] [place] [address], [facility] [address] [address] * SCREENING MAMMOGRAM BILATERAL (11/23/2023 3:00 AM EDT) 11/23/2023 3:00 AM EDT Ivette Resendez PA-C IMG MAMMO Final Result * (ABNORMAL) HEMOGLOBIN GLYCOSYLATED A1C (09/21/2023 12:44 PM EDT) Pathologist [facility] HEMOGLOBIN A1C 5.9(H) <5.7 % of total Hgb [facility] Comment: For someone without known diabetes, a [...] PM EDT 09/21/2023 12:44 PM EDT Narrative [facility] - 09/22/2023 7:29 AM EDT FASTING:NO us Ivette Resendez PA-C LAB - BLOOD DRAW Edited Resu lt - Final [facility] [address] [place] [address], [facility] [address] [place] [phone] * (ABNORMAL) LIPID PANEL (09/21/2023 12:44 PM EDT) [facility] CHOLESTEROL, TOTAL 238(H) <200 mg/dL [facility] HDL CHOLESTEROL 75 > OR = 50 mg/dL [facility] TRIGLYCERIDES 74 <150 mg/dL [facility] LDL-CHOLESTEROL 145(H) 99 mg/dL (calc) [facility] Comment: Reference range: <100 Desirable range <100 mg/dL for primary prevention; <70 mg/dL for patients with CHD or diabetic patients with > or = 2 CHD risk factors. LDL-C is now calculated using the Bayron-Kvng calculation, which is a validated novel method providing better accuracy than the Friedewald equation in the estimation of LDL-C. Bayron VAZQUEZ et al. BLAINE. 2013;310(19): 0380-4198 (http://education.AGV Media.PrintFu/faq/SPE936) CHOL/HDLC RATIO 3.2 <5.0 (calc) [facility] NON-HDL CHOLESTEROL 163(H) <130 mg/dL (calc) [facility] Comment: For patients with diabetes plus 1 major ASCVD risk factor, treating to a non-HDL-C goal of <100 mg/dL (LDL-C of <70 mg/dL) is considered a therapeutic option. Blood Blood / Unknown 09/21/2023 1 2:44 PM EDT 09/21/2023 12:44 PM EDT Narrative [facility] - 09/22/2023 7:29 AM EDT FASTING:NO us Ivette Resendez PA-C LAB - BLOOD DRAW Final Resul t [facility] [address] [place] [address], [facility] [address] [place] [phone] * (ABNORMAL) THIN PREP IMAGE PAP + HPV RNA E6/E7 W/RFLX HPV 16, 18/45 (04/09/2023 11:55 AM EST) CLINICAL INFORMATION See Note [facility] Comment:ABNORMAL MINUTE CLERK EXAM LMP See Note [facility] Comment:[id number] PREV. PAP [facility] PREV. BX [facility] SOURCE See Note [facility] Comment:Cervix STATEMENT OF ADEQUACY See Note [facility] Comment: Satisfactory for evaluation. Endocervical/transformation zone component present. GENERAL CATEGORIZATION See Note(A) [facility] Comment:Cytology Results: Ep ithelial Cell Abnormality INTERPRETATION/RESU LT See Note(A) [facility] Comment: Atypical Squamous Cells of Undetermined Significance (ASC-US) COMMENT See Note [facility] Comment: This Pap test has been evaluated with computer assisted technology. Batres portions of this case have been reviewed by one or more pathologists. CREPE SOLE SCOURER See Note [facility] 3Nod Comment: WXW, CT(ASCP) CT Screening Location: [address] [address] PATHOLOGIST See Note [facility] Comment: Simran Joseph D.O. Board Certified in Anatomic, Clinical and Cytopathology (electronic signature) Consulting Pathologist [facility] Pathology [address] [place] [phone] COMMENT [facility] HPV MRNA E6/E7 Detected (A) Not Detected [facility] Comment: Methodology: Boxcar Weigher-Mediated Amplification This assay detects E6/E7 viral messenger RNA (mRNA) from 14 high-risk HPV types (16,18,31,33,35,39,45,51,52,56,58,59,66,68). Cervical sources are required for HPV testing. If a vaginal source from a patient who has had a total hysterectomy with removal of cervix was submitted, please contact the testing laboratory for alternative testing options. For additional information, please refer to http://education.eReceipts/faq/MTT886d9 (This link if provided for information/ educational purposes only.) Swab Vaginal structure / Unknown 04/09/2023 11:55 AM EST 04/10/2023 7:18 AM EST Narrative [facility] - 04/16/2023 4:29 PM EST EXPLANATORY [...] PATHOLOGY AND CYTOLOGY A MBULATORY Final Result [facility] [address] [address], [facility] [address] [address] * COLPOSCOPY, ABSTRACTED (03/12/2022 8:33 AM EST) Impressions Ivette Resendez PA-C - 03/12/2022 8:33 AM EST Result type: Surgical Pathology Result date: March 12, 2022 8:00 EST Result status: Auth (Verified) Result title: Surgical Pathology Performed by: Mendy Hernandez MD on March 12, 2022 8:00 EST Verified by: Mendy Hernandez MD on March 12, 2022 8:00 EST Encounter info: [id number], Aurelio TORRES, 03/12/2022 - 03/12/2022 Contributor system: [email or web address] * Final Report * Surgical Pathology Patient [...] and 2-multiple pieces, x2. (EG)* Phone #: [phone], On-Call Pathologist: [id number] us Provider [facility] PROCEDURES Final Result * (ABNORMAL) PAP SMEAR W/HPV (11/22/2021) PAP SMEAR INTERPRETATION NORMAL NORMAL [facility] HPV (HUMAN PAPILLOMA) POSITIVE(A) NEGATIVE [facility] HPV TYPE 16 POSITIVE NEGATIVE [facility] HPV TYPE 18 POSITIVE NEGATIVE [facility] Swab 11/22/2021 Impressions [facility] - 11/22/2021 8:35 AM EDT Result type: Cytology Reports MINUTE CLERK PAP Test Result date: November 22, 2021 21:06 EDT Result status: Auth (Verified) Result title: Cytology Reports MINUTE CLERK PAP Test Encounter info: [id number], [facility] [place], 11/22/2021 - 11/22/2021 Contributor system: MetaPack * Final Report * Cytology Reports MINUTE CLERK PAP Test Patient Name: SAVANNAH BARNETT Patient : 1970 (Age: 51) Lab Collection Date: 11/22/2021 Accession Date: 11/23/2021 Sign Out Date: 11/28/2021 Tissue Source: 1: THINPREP MINUTE CLERK PAP TEST, CERVICAL: Final Diagnosis: NEGATIVE FOR INTRAEPITHELIAL LESION OR MALIGNANCY. Fungal organisms morphologically consistent with Tiffanie spp. Satisfactory for evaluation. Endocervical/transformation zone ABSENT. Procedures/Addenda: Human Papilloma Virus, High-Risk (Any Dx) Status: Signed Out Interpretation: POSITIVE Methodology: Octonius Aptima HPV mRNA assay (Nucleic Acid Amplification Test, NAAT). Clinical History: Date of Last Menstrual Period: 11/07/21 Menstrual History: not available Contraceptive History: not available Ancillary Testing: HPV (any dx) Case imaged by the Wochit Imaging System with manual rescreening or review. Clinical History (other): Routine cervical cancer screening Phone #: [phone], On-Call Pathologist: [id number] us Provider [facility] - PATHOLOGY AND CYTOLOGY AMB ULATORY Final Result [facility] [address] [place] [address], * (ABNORMAL) HEPATITIS A,B,C PANEL (01/17/2020 2:11 PM EST) HEPATITIS B SURFACE ANTIBODY NEGATIVE NEGATIVE [facility] HEPATITIS B SURFACE ANTIGEN NEGATIVE NEGATIVE [facility] Comment: Over the counter supplements containing high doses of biotin may interfere with this assay. If interference is suspected, patients shoud be retested after refraining from biotin supplements for 72 hours. HEPATITIS C VIRUS DIAGNOSTIC NEGATIVE NEGATIVE [facility] HEPATITIS A ANTIBODY TOTAL POSITIVE(A) NEGATIVE [facility] Comment: Over the counter supplements containing high doses of biotin may interfere with this assay. If interference is suspected, patients shoud be retested after refraining from biotin supplements for 72 hours. HEPATITIS B CORE ANTIBODY NEGATIVE NEGATIVE [facility] Blood Blood / Unknown 01/17/2020 2 :11 PM EST 01/17/2020 3:56 PM EST Narrative [facility] - 01/17/2020 6:33 PM EST [facility], a member of [address] [address] Director Telehealth [place] [id number] ORD# [id number] Ivette Resendez PA-C LAB - BLOOD DRAW Edited Resu lt - Final Performing Organization Address City/[facility]/ZIP Co de Phone Number [address] [address], * HIV-1 & HIV-2 ANTIBODIES (01/17/2020 2:11 PM EST) HIV 1 AND 2 ANTIBODY SCREEN NEGATIVE NEGATIVE [facility] Comment: This assay is a [...] EST 01/17/2020 3:56 PM EST Narrative [facility] - 01/17/2020 7:02 PM EST [facility] a member of [address] [address] Director Telehealth [place] [id number] ORD# [id number] us Ivette Resendez PA-C LAB - BLOOD DRAW Final Resul t [facility] [address], from Last 3 Months or Most Recently Relevant to Health Maintenance Insurance [place] [employer] [facility] [employer] Care Teams Matrix Repairer Relationship Specialty Start Date End Date Ivette Resendez PA-C [address] [place] [address] PCP - General 02/08/13
== END 2024-09-13 14:10 | disposition home or self-care (01) ==
LOC: HO.RHES 13:17
PROVIDERS: PCP Physician Assistant; Visit Provider Internal Medicine Rheumatology
DX: M33.13 Other dermatomyositis without myopathy (principal); M70.61 Trochanteric bursitis, right hip; M70.62 Trochanteric bursitis, left hip; Z79.899 Other long term (current) drug therapy; M25.512 Pain in left shoulder; G89.29 Other chronic pain; M75.82 Other shoulder lesions, left shoulder; R74.01 Elevation of levels of liver transaminase levels; R20.2 Paresthesia of skin; M19.90 Unspecified osteoarthritis, unspecified site; R73.03 Prediabetes
CPT/HCPCS: 20610; 99214

== ENCOUNTER 2024-09-13 13:16 | Outpatient (REF) | payer MEDICAID, SELFPAY ==
[2024-09-13 15:19] LABS: Baso%MD 0.4 %; Eos%MD 2.8 %; Hematocrit 38.0 % (37.0-47.0); Hemoglobin 12.0 g/dl (12.0-16.0); IG%MD 0.4 %; Lymph%MD 29.6 %; Mean Corpuscular HGB Conc 31.6 g/dl (31.0-35.0); Mean Corpuscular Hemoglobin 27.8 pg (27.0-33.0); Mean Corpuscular Volume 88.2 fL (80.0-98.0); Mono%MD 8.6 %; NRBC Abs Auto 0.000 X10*3/uL (0.0-0.012); NRBC Pct Auto 0.0 /100WBC (0.0-0.2); Neut%MD 58.2 %; Platelet Count 226 X10*3/uL (160-400); Red Blood Count 4.31 X10*6/uL (4.20-5.50); White Blood Count 5.4 X10*3/uL (4.8-10.8)
[2024-09-13 15:31] LABS: Alanine Aminotransferase 53 U/L (0-31); Aspartate Amino Transferase 39 U/L (5-31); Estimated Glomerular Filt Rate > 60
[2024-09-13 15:57] LABS: Eosinophils Absolute Manual 0.1 X10*3/uL (0.0-0.4); Eosinophils Percent Manual 2 % (0-4); Lymphocytes Absolute Manual 1.1 X10*3/uL (1.2-4.9); Lymphocytes Percent Manual 20 % (20-40); Monocytes Absolute Manual 0.2 X10*3/uL (0.1-1.2); Monocytes Percent Manual 3 % (2-11); Neutrophils Percent Manual 75 % (45-73)
[2024-09-13 15:58] LABS: Macrocytosis 1+ (5-14) /OIF; RBC Morphology NOTED
[2024-09-13 15:59] LABS: Band Neutrophils Percent 0 % (3-5); Neutrophils Absolute Manual 4.1 X10*3/uL (2.0-8.3)
== END 2024-09-13 13:17 | disposition home or self-care (01) ==
LOC: HO.HKASLDS 13:16
PROVIDERS: PCP Physician Assistant; Visit Provider Internal Medicine Rheumatology
DX: M33.13 Other dermatomyositis without myopathy (principal); R21 Rash and other nonspecific skin eruption; M70.61 Trochanteric bursitis, right hip; M70.62 Trochanteric bursitis, left hip; M25.551 Pain in right hip; M25.552 Pain in left hip; M25.511 Pain in right shoulder; M25.512 Pain in left shoulder; G89.29 Other chronic pain; M75.82 Other shoulder lesions, left shoulder; R74.01 Elevation of levels of liver transaminase levels; R20.2 Paresthesia of skin; R73.03 Prediabetes; R29.898 Other symptoms and signs involving the musculoskeletal system; M19.90 Unspecified osteoarthritis, unspecified site; L29.9 Pruritus, unspecified; Z51.81 Encounter for therapeutic drug level monitoring; Z79.899 Other long term (current) drug therapy; Z79.631 Long term (current) use of antimetabolite agent
CPT/HCPCS: 20610; 36415; 82565; 84450; 84460; 85007; 85027; 85652; 86140; 99212

== ENCOUNTER 2024-09-27 13:23 | Outpatient (REF) | payer MEDICAID, SELFPAY ==
--- OUTSIDE RECORDS SUMMARY | 2024-09-27 14:32 | XMS_ITS | Clinical Summary ---
Author Organization [facility] Address [address] [place] [address] Care Team Providers Care Record Tester Name Role Phone Ivette Resendez Primary Care Provider [phone] Surgical History Surgery Date Site/Laterality Comments CHOLECYSTECTOMY PROCEDURE: [place] LAPAROSCOPY SURG CHOLECYSTECTOMY Medical History Medical History [...] 2) 1987 Colorectal Cancer Screening: Colonoscopy 02/15/2022 HIV Screening 02/15/2022 Hepatitis C Screening 02/15/2022 Social Influencers of Health Screening 02/15/2022 Cervical Cancer Screening: P ap Smear 06/12/2023 06/11/2020 Breast Cancer Screening 11/09/2023 11/09/19 22, 07/20/2020 Depression Screening 03/09/2024 DTaP,Tdap,and Td Vaccines (2 - Td or [...] RESULTING AGENCY - 06/18/2020 2:05 PM EDT [id number] THINPREP PAP, IMAGED: NEGATIVE FOR SQUAMOUS INTRAEPITHELIAL [...] BX NEG, LMP 05/11/20, Z12.4 Mary Reilly [facility] CYTOLOGY ORDERABLES Fin al Result HISTORICAL TESTING LAB RESULTING AGENCY from Last 3 Months or Most Recently Relevant to Health Maintenance Care Teams Record Tester Relationship Specialty Start Date End Date Ivette Resendez PA [address] [place] [address] PCP - General Internal Medicine 02/13/17
[2024-09-27 18:30] LABS: Alanine Aminotransferase 18 U/L (0-31); Albumin Level 4.0 g/dL (3.5-5.0); Alkaline Phosphatase 66 U/L (39-117); Aspartate Amino Transferase 18 U/L (5-31); Total Protein 6.8 g/dL (6.5-8.0)
== END 2024-09-27 13:24 | disposition home or self-care (01) ==
LOC: HO.HKASLDS 13:23
PROVIDERS: Visit Provider Internal Medicine Rheumatology
DX: R74.01 Elevation of levels of liver transaminase levels (principal); M33.13 Other dermatomyositis without myopathy; Z79.899 Other long term (current) drug therapy
CPT/HCPCS: 36415; 80076

== ENCOUNTER 2025-01-10 09:57 | Outpatient (AMB) | payer MEDICAID, SELFPAY ==
--- NOTE | 2025-01-10 09:59 | A.OFFVIS_ITS ---
Vital Signs 01/10/25 10:00 Height 5 ft 1 in Weight 214 lb 4.629 oz BMI 40.5 BP 100/70 Blood Pressure Location Lt brachial Position Sitting Pulse 92 Pulse Source Pulse Oximeter Pulse Oximetry (%) 97 Oxygen Delivery Method Room Air Intake Visit Reasons: 3 Months Intake Note: Patient presents today for Lupus follow up. Accompanied by: Spouse Allergies demarol Allergy (Severe, Uncoded 02/24/24 13:47) Anaphylaxis Medication List - Last Reconciled 01/11/25 by Mati Shields MD folic acid 1 mg PO DAILY hydroxychloroquine 400 mg (2 x 200 mg) PO DAILY methotrexate sodium 17.5 mg (7 x 2.5 mg) PO QWEEK 4 weeks nabumetone 500 mg PO BID prednisone 5 mg PO DIRECTED tramadol 50 mg PO BID PRN HPI HPI 3 Months: Details: She was at [facility] ER for dysphagia. She was unable to swallow for a day prior to presenting to ER. She had barium swallow and reports that it was normal. She is scheduled for endoscopy June 2025. She has contacted PCP about her symptoms but PCP's unable to move appointment earlier. She is able to drink liquids and eat food at this time. He has persistent facial erythema with pruritus. She continues to pain in her joints mainly in her hands. She has difficulty getting due back pain. No new joint swelling. No recent infections. She has limited range of motion of her left shoulder. History of surgery on her right shoulder. [facility] Medical History (Reviewed 01/10/25 @ 10:00 by Anila Sandoval [facility]) Recurrent dislocation of right upper arm Physical Exam Vital Signs: Last Vital Signs Pulse 92 01/10/25 10:00 BP 100/70 01/10/25 10:00 Pulse Ox 97 01/10/25 10:00 Oxygen Delivery Method Room Air 01/10/25 10:00 BMI result Body Mass Index 40.5 Const Other: General: Comfortable CVS: RRR Respiratory: clear to auscultation bilaterally. Good respiratory effort Skin: No lesions seen MSK: Tender bilateral MCPs, PIPs, wrists, knees and bilateral shoulders. Left shoulder limited abduction 45 degrees. She has limited internal and external rotation of left shoulder due to pain. Right shoulder abduction 160 degrees with good internal and external rotation. No synovitis. Tender bilateral trochanteric bursae. Limited full external rotation of left hip due to pain. Assessment & Plan Assessment & Plan (1) Dermatomyositis: Comment: Relapsed, uncontrolled cutaneous manifestation of dermatomyositis with hyd roxychloroquine and methotrexate and multiple courses of prednisone. 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 She continues to have diffuse polyarthralgias. Inflammatory markers are elevated from September 2024. We discussed next steps in treatment with rituximab. Treatment with rituximab is indicated. We discussed side effects, benefits and monitoring. She developed weakness in her bilateral lower extremities with paresthesias- workup has revealed prediabetes, which can manifest with peripheral neuropathy in rare occasions. EMG is scheduled for January 20 for further workup of lower extremity weakness and paresthesias. With normal muscle enzymes her weakness is less likely related to myositis. 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 Hydroxychloroquine 08/2021- and MMF 08/2021-05/2024 relapse cutaneous disease. MTX 05/2024-. She developed inflammatory arthritis 2024, which is a rare manifestation of dermatomyositis better controlled with increasing methotrexate. Methotrexate caused transaminitis 09/2024 resolved with dose reduction. Code(s): M33.13 - Other dermatomyositis without myopathy Category: Medical Plan: Labs for drug and disease monitoring ordered Continue methotrexate 17.5mg once weekly Continue hydroxychloroquine 200 mg twice a day as it is better tolerated for patient. Eye exam OCT 04/2022. No visual field test. I am requesting patient call [facility] for eye exam for visual field testing and OCT exam x3 request Bilateral lower extremity EMG 01/20/2025 Rituximab PA 1g on day 0 and 14 every 6 months Requesting barium swallow report from [facility] Return to clinic in 3 months (2) Greater trochanteric bursitis of both hips: Comment: Persistent but better controlled with cortisone injections from September 2024 Code(s): M70.61 - Trochanteric bursitis, right hip; M70.62 - Trochanteric bursitis, left hip Category: Medical Plan: Return to clinic in 3 months (3) Other snf (current) drug therapy: Code(s): Z79.899 - Other intermodal customer service (current) drug therapy Category: Medical Plan: See above (4) Left shoulder pain: Comment: Chronic likely due to rotator cuff tendinopathy. X-ray revealed mild AC joint arthritis. X-ray from [facility] 05/30/2021 bilateral shoulders were normal. Unable to participate in PT due to uncontrolled pain. Repeat cortisone injection provides temporary relief. Failed Tylenol and nabumetone. She missed her appointment on September 17 for MRI left shoulder. Code(s): M25.512 - Pain in left shoulder Category: Medical Qualifiers: Chronicity: chronic Qualified Code(s): M25.512 - Pain in left shoulder; G89.29 - Other chronic pain Plan: MRI left shoulder ordered for further evaluation of rotator cuff tendon tear, which will aid in next steps in treatment with surgical referral. I have asked her to schedule MRI. Return to clinic in 3 months (5) Tendonitis of left rotator cuff: Code(s): M75.82 - Other shoulder lesions, left shoulder Category: Medical Plan: See above (6) Transaminitis: Comment: Resolved after methotrexate dose was reduced. Code(s): R74.01 - Elevation of levels of liver transaminase levels Category: Medical Plan: Monitoring LFTs closely while on methotrexate (7) Paresthesia of bilateral legs: Comment: Recent workup reveals that she has prediabetes. Prediabetes can rarely present with lower extremity neuropathy Code(s): R20.2 - Paresthesia of skin Category: Medical Plan: EMG bilateral lower extremities ordered last visit for further evaluation, which is scheduled for January 20 Return to clinic in 3 months Coding Level of Care Code Est Pt Level 4 (01013) Complex EM visit Add On G2211 Diagnoses Dermatomyositis M33.13 Greater trochanteric bursitis of both hips M70.61; M70.62 Other intermodal customer service (current) drug therapy Z79.899 Chronic left shoulder pain M25.512; G89.29 Chronicity: chronic Tendonitis of left rotator cuff M75.82 Transaminitis R74.01 Paresthesia of bilateral legs R20.2
[2025-01-10 10:00] VITALS: BP 100/70; PULSE 92; O2SAT 97; BMI 40.5
== END 2025-01-10 10:29 | disposition home or self-care (01) ==
LOC: HO.RHES 09:57
PROVIDERS: PCP Physician Assistant; Visit Provider Internal Medicine Rheumatology
DX: M33.13 Other dermatomyositis without myopathy (principal); M70.61 Trochanteric bursitis, right hip; M70.62 Trochanteric bursitis, left hip; Z79.899 Other long term (current) drug therapy; M25.512 Pain in left shoulder; G89.29 Other chronic pain; M75.82 Other shoulder lesions, left shoulder; R74.01 Elevation of levels of liver transaminase levels; R20.2 Paresthesia of skin
CPT/HCPCS: 99214

== ENCOUNTER → 2025-01-10 09:57 | Outpatient (BNVA) | payer MEDICAID, SELFPAY | PROVIDERS: PCP Physician Assistant; Visit Provider Internal Medicine Rheumatology | DX: M25.512 Pain in left shoulder (principal); M75.82 Other shoulder lesions, left shoulder; R74.01 Elevation of levels of liver transaminase levels; R20.2 Paresthesia of skin; M70.61 Trochanteric bursitis, right hip; M70.62 Trochanteric bursitis, left hip; G89.29 Other chronic pain | CPT/HCPCS: 99212 ==

== ENCOUNTER 2025-01-11 11:21 | Outpatient (REF) | payer MEDICAID, SELFPAY ==
--- OUTSIDE RECORDS SUMMARY | 2025-01-11 13:54 | XMS_ITS | Clinical Summary ---
Author Organization [facility] Address [address] [place] [address] Phone Care Team Providers Care Mold Carrier Name Role Phone Ivette Resendez Primary Care Provider [phone] Allergies Active Allergy Reactions Criticality Noted Date Comments Meperidine 12/27/2024 Medications clonazePAM (KlonoPIN) 0.5 mg tablet Take 1 tablet (0.5 mg total) by mouth 2 (two) times a day if needed for anxiety. Active desvenlafaxine succinate (PRISTIQ) 100 mg 24 hr tablet Take 1 tablet (100 mg total) by mouth 1 (one) time each day. 5 Active folic acid (FOLVITE) 1 mg tablet Take 1 tablet (1,000 mcg total) by mouth 1 (one) time each day. Active levothyroxine (SYNTHROID, LEVOTHROID) 125 mcg tablet Take 1 tablet (125 mcg total) by mouth 1 (one) time each day before breakfast. Active lidocaine (LIDODERM) 5 % patch Apply 1 patch topically 1 (one) time each day. 5 Active methotrexate 2.5 mg tablet Take 7 tablets (17.5 mg total) by mouth 1 (one) time per week 5 Active mirabegron (MYRBETRIQ) 25 mg 24 hr tablet Take 1 tablet (25 mg total) by mouth 1 (one) time each day. 5 Active omeprazole (PriLOSEC) [address] capsule Take 1 capsule (20 mg total) by mouth 2 (two) times daily before breakfast and lunch. Active pregabalin (LYRICA) 150 mg capsule Take 1 capsule (150 mg total) by mouth 2 (two) times a day. 5 Active QUEtiapine fumarate ER (SEROquel XR) 50 mg 24 hr tablet Take 1 tablet (50 mg total) by mouth at bedtime. Active traMADoL (ULTRAM) 50 mg tablet Take 1 tablet (50 mg total) by mouth daily. 5 Active predniSONE (DELTASONE) 20 mg tablet Take 1 tablet (20 mg total) by mouth 1 (one) time each day for 5 days. 5 each 5 01/05/20 25 Active Problems Problem Noted Date Diagnosed Date Dysphagia 12/27/2024 Encounters Date Type Department Care Team Description 12/27/2024 10:05 PM EDT - 12/29/2024 3:30 PM EDT Hospital Encounter [facility] [address] [place] [phone] Mike Looney MD Jones, Christopher, MD [facility], Mejia Leigh MD Dysphagia, unspecified type (Primary Dx) Discharge Disposition: Home or Self Care from Last 3 Months Surgical History Surgery Date Site/Laterality Comments CHOLECYSTECTOMY PROCEDURE: [place] LAPAROSCOPY SURG CHOLECYSTECTOMY WRIST SURGERY Right HYSTEROSCOPY Medical History Medical History Date Comments Hypothyroidism DX:Hypothyroidis m Migraine with aura, not intractable DX:Migraine with aura, not intractable Systemic lupus erythematosus (SLE) in adult ([facility] V24, [facility] V28) 02/13/2017 DX:Systemic lupus brittney thematosus (SLE) in adult ([facility]) Shoulder joint painful on mo vement, left 02/13/2017 DX:Shoulder joint painful on movement, left Anxiety DX:Anxiety Depression DX:Depression Peripheral vascular disease ([facility] V24) Family History Medical History Relation Name Comments [...] drink = 0.6 oz pur e alcohol) Housing Instability Answer Date Recorde d Are you worried that in the next 2 months you may not have stable housing? No 12/28/2024 Food Access & Nutrition Answer Date Rec orded Do you have access to a vari ety of food including fruits and vegetables? No 12/28/2024 Access to Healthcare Answer Date Record ed Within the last 3 months, ho w many times did you visit the emergency department for your medical care? 2 12/28/2024 Health Literacy Answer Date Recorded How often do you need to hav e someone help you when you read instructions, pamphlets, or other written material from your doctor or pharmacy? Never 12/28/2024 Caregiver: How often do you need to have someone help you when you read instructions, pamphlets, or other written material from your doctor or pharmacy? Not on file 12/28/2024 Financial Risk Answer Date Recorded How hard is it for you to pa y for the very basics like food, housing, medical care, and air conditioning / heating? Not very hard 12/28/2024 Transportation Answer Date Recorded Has the lack of transportati on kept you from meetings, work, or from getting things needed for daily living? No Has the lack of transportati on kept you from medical appointments or from getting medications? No 12/28/2024 Social Isolation Answer Date Recorded How often do you feel lonely or isolated from th ose around you? Never 12/28/2024 Food Risk Answer Date Recorded Within the past 12 months we worried whether our food would run out before we got money to buy more. Never true 12/28/2024 Within the past 12 months th e food we bought just didn't last and we didn't have money to get more. Never true 12/28/2024 Dependent Care Answer Date Recorded Do you need help finding or paying for care for your loved ones. For example, child development assistant or elderly care for an older adult? No 12/28/2024 Education Answer Date Recorded Do you think completing more education or training, like finishing a GED, going to college, or learning a trade, would be helpful for you? No 12/28/2024 Employment and Income Answer Date Recor ded During the last four weeks, have you been actively looking for work? No 12/28/2024 Living Situation Answer Date Recorded What is your living situation? Unrecognized valu e 12/28/2024 Interpersonal Safety Answer Date Record ed Physical Abuse Unrecognized value 12/28/2024 Verbal Abuse Unrecognized value 12/28/2024 Comments Unknown Sex and Gender Information Value Date Recorded Sex Assigned at Not on file Legal Sex Female 5:36 AM EST Gender Identity Not on file Sexual Orientation Not on file Obstetrics History Last Filed Vital Signs Vital Sign Reading Time Taken Comments Blood Pressure 153/92 12/29/2024 2:55 PM EDT Pulse 95 12/29/2024 2:55 PM EDT Temperature 36.6 C (97.8 F) 12/29/2024 2:55 PM EDT Respiratory Rate 13 12/29/2024 2:55 PM EDT Oxygen Saturation 98% 12/29/2024 2:55 PM EDT Inhaled Oxygen Concentration - - Weight 98 kg (216 lb) 12/28/2024 6:28 AM EDT Height 157.5 cm (5' 2 ) 12/27/2024 4:20 PM EDT Body Mass Index 39.51 12/27/2024 4:20 PM EDT Plan of Treatment Health Maintenance Due Date Last Done Comments Colorectal Cancer Screening: Colonoscopy 1968 COVID-19 Vaccine (#1) 1973 Hepatitis B Vaccines (1 of 3 - 19+ 3-dose series) 1987 Pneumococcal Vaccine: 50+ Years (1 of 2 - PCV) 1987 Zoster Vaccines (1 of 2) 1987 RSV Immunization Adult Patients (1 - Risk 50-74 years 1-dose series) 2018 HIV Screening 02/15/2022 Cervical Cancer Screening: Pap Smear 06/12/2023 06/11/2020 Depression Screening 03/09/2024 Influenza Vaccine (#1) 2024 Breast Cancer Screening 11/22/2025 11/23/19 24, 11/08/2021, 07/20/2020 Social Influencers of Health Screening 12/28/2025 12/28/2024 Cholesterol Screening (Lipid Panel) 09/13/2029 09/13/2024, 09/13/2024, 09/21/2023, Additional history exists DTaP,Tdap,and Td Vaccines (3 - Td or Tdap) 09/13/2034 09/13/2024, 10/19/2014 Hepatitis C Screening Completed 09/13/2024 HIB Vaccines Aged Out No longer eligi [...] 20 months Aged Out No longer eligible based on patient's age to complete this topic Varicella Vaccines Aged Out No longer eligible based on patient's age to complete this topic Procedures Procedure Name Priority Date/Time Associated Diagnosis Comments ECG ANNOTATED 12/30/2024 XR ESOPHAGRAM Routine 12/29/2024 9:09 AM EDT SST - GOLD Routine 12/29/2024 6:17 AM EDT EXTRA TUBES Routine 12/29/2024 6:17 AM EDT CBC WITH AUTO DIFFERENTIAL Routine 12/29/2024 6:17 AM EDT CBC AND DIFFERENTIAL Routine 12/29/2024 6:17 AM EDT CBC WITH AUTO DIFFERENTIAL Routine 12/28/2024 5:45 AM EDT CBC AND DIFFERENTIAL Routine 12/28/2024 5:45 AM EDT BASIC METABOLIC PANEL Routine 12/28/2024 5:45 AM EDT TROPONIN I HIGH SENSITIVITY Timed 12/28/2024 2:40 AM EDT TROPONIN I HIGH SENSITIVITY Timed 12/28/2024 1:32 AM EDT RESPIRATORY VIRUS PANEL MOLECULAR STUDY Routine 12/28/2024 1:20 AM EDT SMITH URINE CULTURE TUBE Routine 12/28/2024 1:12 AM EDT URINALYSIS WITH REFLEX MICROSCOPIC AND CULTURE Routine 12/28/2024 1:12 AM EDT URINALYSIS WITH REFLEX MICROSCOPIC AND CULTURE Routine 12/28/2024 1:12 AM EDT DRUG ABUSE SCREEN 8A PANEL, URINE Routine 12/28/2024 1:12 AM EDT CULTURE URINE Routine 12/28/2024 1:12 AM EDT ECG 12-LEAD Routine 12/27/2024 11:45 PM EDT XR CHEST 2 VIEWS STAT 12/27/2024 8:57 PM EDT ANTI-DNA ANTIBODY, DOUBLE-STRANDED Add-On 12/27/2024 4:33 PM EDT C4 COMPLEMENT Add-On 12/27/2024 4:33 PM EDT C3 COMPLEMENT Add-On 12/27/2024 4:33 PM EDT EXTRACTABLE NUCLEAR ANTIBODIES PROFILE Add-On 12/27/2024 4:33 PM EDT ALONSO IFA WITH TITER AND PATTERN Add-On 12/27/2024 4:33 PM EDT CREATINE KINASE Add-On 12/27/2024 4:33 PM EDT CBC WITH AUTO DIFFERENTIAL STAT 12/27/2024 4:33 PM EDT MAGNESIUM STAT 12/27/2024 4:33 PM EDT BASIC METABOLIC PANEL STAT 12/27/2024 4:33 PM EDT CBC AND DIFFERENTIAL STAT 12/27/2024 4:33 PM EDT SCREENING MAMMOGRAPHY BI 2-VIEW BREAST INC CAD Routine 11/08/2021 3:39 PM EDT Encounter for screening mammogram for malignant neoplasm of breast PAP SMEAR Routine 06/11/2020 from Last 3 Months or Most Recently Relevant to Health Maintenance Results * ECG-Annotated (12/30/2024) us Provider Onbase MD ECG ORDERABLES Final Result * XR Esophagram (12/29/2024 9:09 AM EDT) Anatomical Region Laterality Modality Head and Neck Radiographic Pamela ging 12/29/2024 9:30 AM EDT Impressions 12/29/2024 9:34 AM EDT Mild esophageal dysmotility. There is a small sliding axial hiatal hernia without visualized gastroesophageal reflux. The swallowing mechanism is normal. The dose-area product for this procedure was 6.74 Gy*cm2. PQRI CPT II G9500 -------- FINAL REPORT -------- Dictated By: Jamshid Boone Dictated Date: 12/29/2024 09:30 ET Assigned Physician: Jamshid Boone Reviewed and Electronically Signed By: Jamshid Boone Signed Date: 12/29/2024 09:34 ET Workstation ID: [id number] Transcribed By: Self Edit Transcribed Date: 12/29/2024 09:30 ET Narrative 12/29/2024 9:34 AM EDT HISTORY: The patient is a 54-year-old female with dysphagia for 4 months. FINDINGS: Content Checker PA radiograph of the chest demonstrates normal appearance of the bony structures. The cardiac and mediastinal contours are within normal limits. The lungs and costophrenic angles are clear. Content Checker lateral radiograph of the neck demonstrates no prevertebral soft tissue swelling. The epiglottis and aryepiglottic folds are of normal appearance. No soft tissue mass is seen. The included portion of the airway is widely patent. No bony abnormality is seen Effervescent crystals were administered orally. Thick and thin barium was then administered orally under fluoroscopic control. The study demonstrates mild esophageal dysmotility as evidenced by decreased efficacy of the primary peristaltic stripping wave, a patulous appearance of the esophagus, and slow transit of barium. There is no ulcer, stricture, or filling defect. The mucosal pattern is normal. A small sliding axial hiatal hernia is present. No gastroesophageal reflux could be elicited. There is no radiographic evidence of esophagitis. Rapid sequence imaging of the hypopharynx during swallowing demonstrates prompt initiation of swallowing. There is normal soft palate elevation and normal epiglottic motion. There is no laryngeal penetration or aimee aspiration. There is no residual in the vallecula nor in the piriform sinuses. A 13 mm barium tablet was readily swallowed and passed rapidly down the esophagus into the stomach. Procedure Note Jamshid Boone MD - 12/29/2024 HISTORY: The patient is a 54-year-old female with dysphagia for 4months. FINDINGS: Content Checker PA radiograph of the chest demonstrates normal appearanceof the bony structures. The cardiac and mediastinal contours are withinnormal limits. The lungs and costophrenic angles are clear. Content Checker lateralradiograph of the neck demonstrates no prevertebral soft tissue swelling.The epiglottis and aryepiglottic folds are of normal appearance. No softtissue mass is seen. The included portion of the airway is widely patent.No bony abnormality is seen Effervescent crystals were administered orally. Thick and thin barium wasthen administered orally under fluoroscopic control. The studydemonstrates mild esophageal dysmotility as evidenced by decreasedefficacy of the primary peristaltic stripping wave, a patulous appearanceof the esophagus, and slow transit of barium. There is no ulcer,stricture, or filling defect. The mucosal pattern is normal. A smallsliding axial hiatal hernia is present. No gastroesophageal reflux couldbe elicited. There is no radiographic evidence of esophagitis. Rapidsequence imaging of the hypopharynx during swallowing demonstrates promptinitiation of swallowing. There is normal soft palate elevation and normalepiglottic motion. There is no laryngeal penetration or aimee aspiration.There is no residual in the vallecula nor in the piriform sinuses. A 13 mmbarium tablet was readily swallowed and passed rapidly down the esophagusinto the stomach. IMPRESSION: Mild esophageal dysmotility. There is a small sliding axial hiatal herniawithout visualized gastroesophageal reflux. The swallowing mechanism isnormal. The dose-area product for this procedure was 6.74 Gy*cm2. PQRI CPT II G9500 -------- FINAL REPORT -------- Dictated By: Jamshid Boone Dictated Date: 12/29/2024 09:30 ET Assigned Physician: Jamshid Boone Reviewed and Electronically Signed By: Jamshid Boone Signed Date: 12/29/2024 09:34 ET Workstation ID: [id number] Transcribed By: Self Edit Transcribed Date: 12/29/2024 09:30 ET Maria E WALTER IMRasheeda FLUOROSCOPY PROCEDURE S Final Result * SST tube (12/29/2024 6:17 AM EDT) [facility] Extra Tube Hold for add-ons. 12/29/2024 8:01 AM EDT [facility] Comment:Auto resulted. Blood Venous blood specimen / Unknown Venipuncture / Unknown 12/29/2024 6:17 AM EDT 12/29/2024 6:51 AM EDT us Mejia Gold MD LAB BLOOD ORDERABLES F inal Result [facility] [address] [place] [address], [place] [phone] * (ABNORMAL) CBC auto differential (12/29/2024 6:17 AM EDT) Only the most recent of3 resultswithin the time period is included. [facility] WBC 6.0 4.8 - 10.8 K/[facility] LAB HEMETOLOGY METHOD 12/29/2024 7:13 AM EDT [facility] RBC 4.10 3.80 - 4.80 M/mcL LAB HEMETOLOGY METHOD 12/29/2024 7:13 AM [facility] Hemoglobin 11.7 11.5 - 16.0 g/dL LAB HEMETOLOGY METHOD 12/29/2024 7:13 AM [facility] Hematocrit 37.0 35.0 - 47.0 % LAB HEMETOLOGY METHOD 12/29/2024 7:13 AM [facility] MCV 89.4 79.0 - 98.0 FL LAB HEMETOLOGY METHOD 12/29/2024 7:13 AM [facility] MCH 28.3 27.0 - 32.0 pcg LAB HEMETOLOGY METHOD 12/29/2024 7:13 AM [facility] MCHC 31.6(L) 32.0 - 37.0 g/dL LAB HEMETOLOGY METHOD 12/29/2024 7:13 AM [facility] RDW 14.8 11.0 - 15.0 % LAB HEMETOLOGY METHOD 12/29/2024 7:13 AM [facility] Platelets 194 130 - 400 K/mcL LAB HEMETOLOGY METHOD 12/29/2024 7:13 AM [facility] MPV 12.3(H) 7.0 - 11.0 FL LAB HEMETOLOGY METHOD 12/29/2024 7:13 AM [facility] NRBC 0.0 <1.0 % LAB HEMETOLOGY METHOD 12/29/2024 7:13 AM [facility] NRBC Absolute 0.00 <0.10 K/mcL LAB HEMETOLOGY METHOD 12/29/2024 7:13 AM [facility] Neutrophils Relative 47.0 % LAB HEMETOLOGY METHOD 12/29/2024 7:13 AM [facility] Lymphocytes Relative 44.8 % LAB HEMETOLOGY METHOD 12/29/2024 7:13 AM [facility] Monocytes Relative 6.8 % LAB HEMETOLOGY METHOD 12/29/2024 7:13 AM [facility] Eosinophils Relative 0.8 % LAB HEMETOLOGY METHOD 12/29/2024 7:13 AM [facility] Basophils Relative 0.3 % LAB HEMETOLOGY METHOD 12/29/2024 7:13 AM [facility] Immature Granulocytes Relative 0.3 % LAB HEMETOLOGY METHOD 12/29/2024 7:13 AM [facility] Neutrophils Absolute 2.81 1.50 - 7.00 K/mcL LAB HEMETOLOGY METHOD 12/29/2024 7:13 AM [facility] Lymphocytes Absolute 2.69 1.00 - 5.00 K/mcL LAB HEMETOLOGY METHOD 12/29/2024 7:13 AM [facility] Monocytes Absolute 0.41 0.20 - 1.00 K/mcL LAB HEMETOLOGY METHOD 12/29/2024 7:13 AM [facility] Eosinophils Absolute 0.05 0.00 - 0.50 K/mcL LAB HEMETOLOGY METHOD 12/29/2024 7:13 AM [facility] Basophils Absolute 0.02 0.00 - 0.20 K/mcL LAB HEMETOLOGY METHOD 12/29/2024 7:13 AM [facility] Immature Granulocytes Absolute 0.02 0.00 - 0.03 K/mcL LAB HEMETOLOGY METHOD 12/29/2024 7:13 AM [facility] Blood Venous blood specimen / Unknown Venipuncture / Unknown 12/29/2024 6:17 AM EDT 12/29/2024 6:50 AM EDT Maria E WALTER LAB BLOOD ORDERABLES Lotus l Result [facility] [address] [place] [address], * (ABNORMAL) Basic metabolic panel (12/28/2024 5:45 AM EDT) Only the most recent of2 resultswithin the time period is included. Sodium 143 133 - 145 mmol/L LAB CHEMISTRY METHOD 12/28/2024 7:45 AM [facility] Potassium 3.4(L) 3.5 - 5.5 mmol/L LAB CHEMISTRY METHOD 12/28/2024 7:45 AM [facility] Chloride 109 96 - 110 mmol/L LAB CHEMISTRY METHOD 12/28/2024 7:45 AM [facility] CO2 28 21 - 32 mmol/L LAB CHEMISTRY METHOD 12/28[facility]24 7[facility] Anion Gap 6 3 - 11 LAB CHEMISTRY METHOD 12/28/2024 7:45 AM [facility] Glucose 96 70 - 100 mg/dL LAB CHEMISTRY METHOD 12/28/2024 7:45 AM [facility] BUN 15 5 - 25 mg/dL LAB CHEMISTRY METHOD 12/28/2024 7:45 AM [facility] Creatinine 0.28(L) 0.50 - 1.10 mg/dL LAB CHEMISTRY METHOD 12/28/2024 7:45 AM [facility] eGFR 127 >=60 mL/min/1. 73m2 LAB CHEMISTRY METHOD 12/28/2024 7:45 AM [facility] Comment:Calculation based on the Chronic Kidney Disease Epidemiology Collaboration (CKD-EPI) equation refit without adjustment for race. BUN/Creatinine Ratio 53.6 LAB CHEMISTRY METHOD 12/28/2024 7:45 AM [facility] Calcium 8.7 8.5 - 10.5 mg/dL LAB CHEMISTRY METHOD 12/28/2024 7:45 AM EDT [facility] Blood Venous blood specimen / Unknown Venipuncture / Unknown 12/28/2024 5:45 AM EDT 12/28/2024 6:27 AM EDT us Curt Monreal MD LAB BLOOD ORDERABLES Final Result Performing Organization Address [facility]/ZIP Co de Phone Number [facility] [address] [place] [address], [place] [phone] * Troponin I high sensitivity (NOW and then in 1 hour) (12/28/2024 2:40 AM EDT) Only the most recent of2 resultswithin the time period is included. [facility] High Sensitivity Troponin I 5 <=54 ng/L LAB CHEMISTRY METHOD 12/28/2024 3:15 AM EDT [facility] Blood Venous blood specimen / Unknown Venipuncture / Unknown 12/28/2024 2:40 AM EDT 12/28/2024 2:47 AM EDT Narrative [facility] - 12/28/2024 3:15 AM EDT High levels of biotin in samples may falsely decrease hsTroponin values. Use caution when interpreting hsTroponin results in patients taking biotin who exhibit renal impairment (eGFR <60) or in patients taking more than 20 mg/day of biotin. us Curt Monreal MD LAB BLOOD ORDERABLES Final Result Performing Organization Address [facility]/ZIP Co de Phone Number [facility] [address] [place] [address], [place] [phone] * Respiratory virus panel molecular study (12/28/2024 1:20 AM EDT) [facility] Adenovirus Detection by PCR Not Detected Not Detected LAB MICROBIOLOGY METHOD 12/28/2024 2:25 AM EDT [facility] Influenza A PCR Not Detected Not Detected LAB MICROBIOLOGY METHOD 12/28/2024 2:25 AM EDT [facility] Influenza B PCR Not Detected Not Detected LAB MICROBIOLOGY METHOD 12/28/2024 2:25 AM EDT [facility] Coronavirus 229E Not Detected Not Detected LAB MICROBIOLOGY METHOD 12/28/2024 2:25 AM EDT [facility] Coronavirus HKU1 Not Detected Not Detected LAB MICROBIOLOGY METHOD 12/28/2024 2:25 AM EDT [facility] Coronavirus OC43 Not Detected Not Detected LAB MICROBIOLOGY METHOD 12/28/2024 2:25 AM EDT [facility] Coronavirus NL63 Not Detected Not Detected LAB MICROBIOLOGY METHOD 12/28/2024 2:25 AM EDT [facility] Parainfluenza Virus 1 Not Detected Not Detected LAB MICROBIOLOGY METHOD 12/28/2024 2:25 AM EDT [facility] Parainfluenza Virus 2 Not Detected Not Detected LAB MICROBIOLOGY METHOD 12/28/2024 2:25 AM EDT [facility] Parainfluenza Virus 3 Not Detected Not Detected LAB MICROBIOLOGY METHOD 12/28/2024 2:25 AM EDT [facility] Parainfluenza Virus 4 Not Detected Not Detected LAB MICROBIOLOGY METHOD 12/28/2024 2:25 AM EDT [facility] RSV PCR Not Detected Not Detected LAB MICROBIOLOGY METHOD 12/28/2024 2:25 AM EDT [facility] Human Metapneumovirus A and B Not Detected Not Detected LAB MICROBIOLOGY METHOD 12/28/2024 2:25 AM EDT [facility] Rhinovirus/Entero virus Not Detected Not Detected LAB MICROBIOLOGY METHOD 12/28/2024 2:25 AM EDT [facility] Bordetella pertussis Not Detected Not Detected LAB MICROBIOLOGY METHOD 12/28/2024 2:25 AM EDT [facility] Bordetella parapertussis Not Detected Not Detected LAB MICROBIOLOGY METHOD 12/28/2024 2:25 AM EDT [facility] Mycoplasma pneumo by PCR Not Detected Not Detected LAB MICROBIOLOGY METHOD 12/28/2024 2:25 AM EDT [facility] Chlamydia pneumoniae Not Detected Not Detected LAB MICROBIOLOGY METHOD 12/28/2024 2:25 AM EDT [facility] SARS COV-2 Not Detected Not Detected LAB MICROBIOLOGY METHOD 12/28/2024 2:25 AM EDT [facility] Swab Both anterior nares / Unknown Non-blood Collection / Unknown 12/28/2024 1:20 AM EDT 12/28/2024 1:34 AM EDT [facility] - 12/28/2024 2:25 AM EDT Testing was performed using the [employer] Respiratory Pathogen PCR Assay. All results must be correlated with the clinical findings. Results should not be used as the sole basis for diagnosis. False Negative results may occur from the presence of sequence variants in the region targeted by the assay or the presence of inhibitors. Results may be affected by concurrent antiviral/antimicrobial therapy or levels of organisms that are below the limit of detection. Lakisha WALTER LAB MICROBIOLOGY - GENERAL MIKE QUINTANILLA Final Result [facility] [address] [place] [address], * (ABNORMAL) Urinalysis with reflex microscopic and culture (12/28/2024 1:12 AM EDT) Pathologist [facility] Specific [place] Urine 1.012 1.003 - 1.030 LAB URINALYSIS - AUTOMATED METHOD 12/28/2024 1:30 AM EDT [facility] pH, Urine 6.5 5.0 - 8.0 pH LAB URINALYSIS - AUTOMATED METHOD 12/28/2024 1:30 AM [facility] Leukocytes, Urine Trace(A) Negative LAB URINALYSIS - AUTOMATED METHOD 12/28/2024 1:30 AM T [facility] Nitrite, Urine Negative Negative LAB URINALYSIS - AUTOMATED METHOD 12/28/2024 1:30 AM [facility] Protein, Urine Negative <=Trace mg/dL LAB URINALYSIS - AUTOMATED METHOD 12/28/2024 1:30 AM [facility] Glucose, Urine Negative Negative mg/dL LAB URINALYSIS - AUTOMATED METHOD 12/28/2024 1:30 AM [facility] Ketones, Urine Negative Negative mg/dL LAB URINALYSIS - AUTOMATED METHOD 12/28/2024 1:30 AM [facility] Urobilinogen, Urine 0.2 0.2 - 1.0 mg/dL LAB URINALYSIS - AUTOMATED METHOD 12/28/2024 1:30 AM [facility] Bilirubin, Urine Negative Negative LAB URINALYSIS - AUTOMATED METHOD 12/28/2024 1:30 AM [facility] Blood, Urine Negative Negative LAB URINALYSIS - AUTOMATED METHOD 12/28/2024 1:30 AM [facility] RBC, Urine 0.9 0 - 4 /HPF LAB URINALYSIS - AUTOMATED METHOD 12/28/2024 1:30 AM [facility] WBC, Urine 5.5(H) 0 - 4 /HPF LAB URINALYSIS - AUTOMATED METHOD 12/28/2024 1:30 AM [facility] Squamous Epithelial, Urine >100(H) 0 - 60 /LPF LAB URINALYSIS - AUTOMATED METHOD 12/28/2024 1:30 AM [facility] Bacteria, Urine Negative Negative /HPF LAB URINALYSIS - AUTOMATED METHOD 12/28/2024 1:30 AM [facility] Hyaline Casts, Urine 1.6 0 - 3 /LPF LAB URINALYSIS - AUTOMATED METHOD 12/28/2024 1:30 AM [facility] Urine Urine specimen obtained by clean catch procedure / Unknown Non-blood Collection / Unknown 12/28/2024 1:12 AM EDT 12/28/2024 1:20 AM EDT us Lakisha WALTER LAB URINE ORDERABLES Final Resu lt Performing Organization Address [facility]/ZIP Co de Phone Number [facility] [address] [place] [address], [place] [phone] * Smith urine culture tube (12/28/2024 1:12 AM EDT) Extra Tube Hold for add-ons. 12/28/2024 3:04 AM EDT [facility] Comment:Auto resulted. Urine Urine specimen obtained by clean catch procedure / Unknown Non-blood Collection / Unknown 12/28/2024 1:12 AM EDT 12/28/2024 1:20 AM EDT Lakisha WALTER LAB URINE ORDERABLES Final Resu lt Performing Organization Address [facility]/ZIP Co de Phone Number [facility] [address] [place] [address], [place] [phone] * Drug abuse screen 8a panel, urine (12/28/2024 1:12 AM EDT) Amphetamine Screen, Ur Negative Negative LAB CHEMISTRY METHOD 12/28/2024 1:47 AM EDT [facility] Comment:Certain OTC medicati ons containing ephedrine, phenylephrine, pseudoephedrine and phenylpropanolamine can cause false positive results. Barbiturate Screen, Ur Negative Negative LAB CHEMISTRY METHOD 12/28/2024 1:47 AM EDT [facility] Benzodiazepine Screen, Ur Negative Negative LAB CHEMISTRY METHOD 12/28/2024 1:47 AM EDT [facility] Cocaine Screen, Ur Negative Negative LAB CHEMISTRY METHOD 12/28/2024 1:47 AM EDT [facility] Opiate Screen, Ur Negative Negative LAB CHEMISTRY METHOD 12/28/2024 1:47 AM EDT [facility] Cannabinoid (THC) Screen, Ur Negative Negative LAB CHEMISTRY METHOD 12/28/2024 1:47 AM EDT [facility] Comment:Specimens from patie nts taking pantoprazole sodium (Protonix) have been shown to produce false positive results. Oxycodone Screen, Ur Negative Negative LAB CHEMISTRY METHOD 12/28/2024 1:47 AM EDT [facility] Fentanyl, Ur Negative Negative LAB CHEMISTRY METHOD 12/28/2024 1:47 AM EDT [facility] Urine Urine specimen obtained by clean catch procedure / Unknown Non-blood Collection / Unknown 12/28/2024 1:12 AM EDT 12/28/2024 1:20 AM EDT Narrative [facility] - 12/28/2024 1:47 AM EDT Assay cutoffs: Amphetamines 1000 ng/mL Barbiturates 200 ng/mL Benzodiazepines 200 ng/mL Cocaine 300 ng/mL Fentanyl 1 ng/mL Opiates 300 ng/mL Oxycodone 100 ng/mL THC 50 ng/mL Semi-quantitative assay for screening purposes only. Unconfirmed screening result should not be used for non-medical purposes. *ALTERNATE METHOD CONFIRMATION DONE UPON REQUEST ONLY* Curt Monreal MD LAB URINE ORDERABLES Final Result [facility] [address] [place] [address], * Culture urine (12/28/2024 1:12 AM EDT) Culture, Urine 50,000-99,000 CFU/mL Mixed urogenital red, no uropathogens present. Suggest repeat specimen if clinically indicated. 12/29/2024 10:44 AM EDT [facility] Urine Urine specimen obtained by clean catch procedure / Unknown Non-blood Collection / Unknown 12/28/2024 1:12 AM EDT 12/28/2024 1:30 AM EDT Lakisha WALTER LAB MICROBIOLOGY - GENERAL ORDMojgan QUINTANILLA Final Result Performing Organization Address City/[facility]/ZIP Co de Phone Number [facility] ([facility]) [facility] [address] [place] [address], [place] [phone] * ECG 12 lead (12/27/2024 11:45 PM EDT) Ventricular Rate ECG 91 BPM GEMUSE Atrial Rate 91 BPM GEMUSE P-R Interval 150 ms GEMUSE QRS Duration 90 ms GEMUSE Q-T Interval 362 ms GEMUSE QTc 445 ms GEMUSE P Wave [place] 34 degrees GEMUSE R [place] 11 degrees GEMUSE T [place] 5 degrees GEMUSE ECG Interpretation Normal sinus rhythm Minimal voltage criteria for LVH, may be normal variant ( R in aVL ) Nonspecific T wave abnormality Abnormal ECG When compared with ECG of 04-JUN-2022 13:17, Nonspecific T wave abnormality now evident in Lateral leads Confirmed by Clifton VACA JOHN ([id number]) on 12/28/2024 7:20:35 PM GEM[facility] 12/27/2024 11:4 5 PM EDT 12/28/2024 7:20 PM EDT Mejia Gold MD ECG ORDERABLES Final Result Performing Organization Address City/[facility] Co de Phone Number GEMUSE * XR Chest 2 Views (12/27/2024 8:57 PM EDT) Anatomical Region Laterality Modality Body Radiographic Pamela ging 12/28/2024 10:2 8 AM EDT Impressions 12/28/2024 10:30 AM EDT FINDINGS/IMPRESSION: Lungs are clear. No pleural effusion or pneumothorax. Cardiac silhouette is normal in size. Degenerative changes seen throughout the bones. -------- FINAL REPORT -------- Dictated By: LUIS SHOEMAKER Dictated Date: 12/28/2024 10:28 ET Assigned Physician: LUIS SHOEMAKER Reviewed and Electronically Signed By: LUIS SHOEMAKER Signed Date: 12/28/2024 10:30 ET Workstation ID: [id number] Transcribed By: Self Edit Transcribed Date: 12/28/2024 10:28 ET Narrative 12/28/2024 10:30 AM EDT XR CHEST 2 VIEWS INDICATION: Cough TECHNIQUE: XR CHEST 2 VIEWS COMPARISON: 04/13/2023 Procedure Note Luis Shoemaker MD - 12/28/2024 XR CHEST 2 VIEWS INDICATION: Cough TECHNIQUE: XR CHEST 2 VIEWS COMPARISON: 04/13/2023 IMPRESSION: FINDINGS/IMPRESSION: Lungs are clear. No pleural effusion orpneumothorax. Cardiac silhouette is normal in size. Degenerative changesseen throughout the bones. -------- FINAL REPORT -------- Dictated By: LUIS SHOEMAKER Dictated Date: 12/28/2024 10:28 ET Assigned Physician: LUIS SHOEMAKER Reviewed and Electronically Signed By: LUIS SHOEMAKER Signed Date: 12/28/2024 10:30 ET Workstation ID: [id number] Transcribed By: Self Edit Transcribed Date: 12/28/2024 10:28 ET Curt Monreal MD IMG XR PROCEDURES Final Res ult * Extractable Nuclear Antibodies Profile (12/27/2024 4:33 PM EDT) SM Ab Negative Negative LAB CHEMISTRY METHOD 01/01/2025 10:21 AM EDT [facility] SM Antibody Quant 3 <20 units LAB CHEMISTRY METHOD 01/01/2025 10:21 AM EDT [facility] INSERT MOLDING OPERATOR Ab Negative Negative LAB CHEMISTRY METHOD 01/01/2025 10:21 AM EDT [facility] INSERT MOLDING OPERATOR Antibody Quant 5 <20 units LAB CHEMISTRY METHOD 01/01/2025 10:21 AM EDT [facility] Blood Venous blood specimen / Unknown Venipuncture / Unknown 12/27/2024 4:33 PM EDT 12/27/2024 5:00 PM EDT us Curt Monreal MD LAB BLOOD ORDERABLES Final Result Performing Organization Address [facility]/ZIP Co de Phone Number [facility] [address] [place] [address], [place] [phone] * ALONSO IFA with titer and pattern (12/27/2024 4:33 PM EDT) [facility] ALONSO Negative Negative 12/29/2024 12:46 PM EDT [facility] Comment:ALONSO performed by ind irect immunofluorescence (IFA) using HEp-2 substrate. Blood Venous blood specimen / Unknown Venipuncture / Unknown 12/27/2024 4:33 PM EDT 12/27/2024 5:00 PM EDT us Curt Monreal MD LAB BLOOD ORDERABLES Final Result Performing Organization Address [facility] Co de Phone Number [facility] [address] [place] [address], [place] [phone] * DNA antibody, double-stranded (12/27/2024 4:33 PM EDT) [facility] Anti-DNA Double Stranded Antibody LAB CHEMISTRY METHOD 12/30/2024 7:37 AM EDT [facility] ds DNA Ab LAB CHEMISTRY METHOD 12/30/2024 7:37 AM EDT [facility] Comment:Anti-dsDNA test not indicated when ALONSO is negative. Blood Venous blood specimen / Unknown Venipuncture / Unknown 12/27/2024 4:33 PM EDT 12/27/2024 5:00 PM EDT us Curt Monreal MD LAB BLOOD ORDERABLES Final Result Performing Organization Address [facility] Co de Phone Number [facility] [address] [place] [address], [place] [phone] * C3 complement (12/27/2024 4:33 PM EDT) C3 Complement 121 88 - 201 mg/dL LAB CHEMISTRY METHOD 12/28/2024 1:15 AM EDT [facility] Blood Venous blood specimen / Unknown Venipuncture / Unknown 12/27/2024 4:33 PM EDT 12/27/2024 5:00 PM EDT us Curt Monreal MD LAB BLOOD ORDERABLES Final Result Performing Organization Address City/[facility]/ZIP Co de Phone Number [facility] [address] [place] [address], [place] [phone] * C4 complement (12/27/2024 4:33 PM EDT) C4 Complement 23 16 - 47 mg/dL LAB CHEMISTRY METHOD 12/28/2024 1:15 AM EDT [facility] Blood Venous blood specimen / Unknown Venipuncture / Unknown 12/27/2024 4:33 PM EDT 12/27/2024 5:00 PM EDT us Curt Monreal MD LAB BLOOD ORDERABLES Final Result Performing Organization Address [facility] Co de Phone Number [facility] [address] [place] [address], [place] [phone] * Magnesium (12/27/2024 4:33 PM EDT) Magnesium 2.0 1.9 - 2.6 mg/dL LAB CHEMISTRY METHOD 12/27/2024 6:04 PM EDT [facility] Blood Venous blood specimen / Unknown Venipuncture / Unknown 12/27/2024 4:33 PM EDT 12/27/2024 5:00 PM EDT Mary WALTER LAB BLOOD ORDERABLES Fin al Result Performing Organization Address City/[facility]/ZIP Co de Phone Number [facility] [address] [place] [address], [place] [phone] * Creatine kinase (12/27/2024 4:33 PM EDT) Total CK 43 22 - 269 unit/L LAB CHEMISTRY METHOD 12/28/2024 1:30 AM EDT [facility] Blood Venous blood specimen / Unknown Venipuncture / Unknown 12/27/2024 4:33 PM EDT 12/27/2024 5:00 PM EDT us Curt Monreal MD LAB BLOOD ORDERABLES Final Result [facility] ([facility] [address] [place] [address], * SCREENING MAMMOGRAPHY BI 2-VIEW BREAST INC [...] RESULTING AGENCY - 06/18/2020 2:05 PM EDT [id number] THINPREP PAP, IMAGED: NEGATIVE FOR SQUAMOUS INTRAEPITHELIAL [...] NEG, LMP 05/11/20, Z12.4 us Mary Reilly CNM LAB CYTOLOGY ORDERABLES Fin al Result HISTORICAL TESTING LAB RESULTING AGENCY from Last 3 Months or Most Recently Relevant to Health Maintenance Insurance MEDICAID - ID Advance Directives * Full Code - Default (Latest Code Status on File) Date Activated Date Inactivated Comments 12/27/2024 11:20 PM 12/29/2024 5:41 PM This is o rder is used when code status has not been discussed with the patient, or code status is otherwise unknown/unconfirmed To update the patient's code status, place a code status order. Do not modify or discontinue any currently active code status orders. Care Teams Mold Carrier Relationship Specialty Start Date End Date Ivette Resendez PA [address] [place] [phone] PCP - General Internal Medicine 02/13/17
[2025-01-11 18:08] LABS: MANUAL DIFF FLAG NO
[2025-01-11 18:37] LABS: Alanine Aminotransferase 29 U/L (0-31); Aspartate Amino Transferase 22 U/L (5-31); Estimated Glomerular Filt Rate > 60
[2025-01-11 18:40] LABS: Hematocrit 40.7 % (37.0-47.0); Hemoglobin 12.6 g/dl (12.0-16.0); Imm Gran Abs Auto 0.05 X10*3/uL (0.00-0.03); Imm Gran Pct Auto 0.6 % (0.0-0.4); Lymphocytes Absolute Auto 2.7 X10*3/uL (1.2-4.9); Mean Corpuscular HGB Conc 31.0 g/dl (31.0-35.0); Mean Corpuscular Hemoglobin 28.1 pg (27.0-33.0); Mean Corpuscular Volume 90.6 fL (80.0-98.0); NRBC Abs Auto 0.000 X10*3/uL (0.0-0.012); NRBC Pct Auto 0.0 /100WBC (0.0-0.2); Platelet Count 232 X10*3/uL (160-400); Red Blood Count 4.49 X10*6/uL (4.20-5.50); White Blood Count 8.0 X10*3/uL (4.8-10.8)
== END 2025-01-11 11:22 | disposition home or self-care (01) ==
LOC: HO.HKASLDS 11:21
PROVIDERS: Visit Provider Internal Medicine Rheumatology
DX: M33.13 Other dermatomyositis without myopathy (principal); Z79.899 Other long term (current) drug therapy
CPT/HCPCS: 36415; 82085; 82550; 82565; 84450; 84460; 85025; 85652; 86140

== ENCOUNTER 2025-01-25 09:26 | Outpatient (REF) | payer MEDICAID, SELFPAY ==
--- NOTE | 2025-01-25 09:29 | EMG_ITS ---
Chief complaint: History of dermatomyositis, diagnosed by biopsy per patient. Possible inflammatory arthritis. Prediabetic. Reason for referral: Evaluate for neuropathy Referred by: Dr. Shields Procedure done: Bilateral lower extremity NCS/EMG Precautions and/or limitations: None The limb temperature was monitored continuously and remained between 32-36 degrees C during the performance of the NCS. Nerve Conduction Studies Anti Sensory Summary Table ?Stim Site NR Onset (ms) Norm Onset (ms) Peak (ms) Norm Peak (ms) O-P Amp (?V) Norm O-P Amp Site1 Site2 Delta-0 (ms) Dist (cm) Torres (m/s) Norm Torres (m/s) Left Sural Anti Sensory (Lat Mall) Calf ? 3.3 4.0 <4.0 7.5 >5.0 Calf Lat Mall 3.3 14.0 42 Right Sural Anti Sensory (Lat Mall) Calf ? 3.3 4.0 <4.0 12.6 >5.0 Calf Lat Mall 3.3 14.0 42 Motor Summary Table ?Stim Site NR Onset (ms) Norm Onset (ms) O-P Amp (mV) Norm O-P Amp iAmp (mV) Amp (1st) (%) Site1 Site2 Delta-0 (ms) Dist (cm) Torres (m/s) Norm Torres (m/s) Right Peroneal Motor (Ext Dig Brev) Ankle ? 4.8 <4.0 3.7 >2.5 4.7 100.0 Ankle Ext Dig Brev 4.8 0.0 B Fib ? 11.0 3.5 4.3 94.6 B Fib Ankle 6.2 30.0 48 >40 Poplt ? 11.9 3.4 4.0 91.9 Poplt B Fib 0.9 4.5 50 >40 Left Tibial Motor (Abd Soto Brev) Ankle ? 4.5 <5 10.5 >2.5 14.9 100.0 Ankle Abd Soto Brev 4.5 0.0 Knee ? 12.2 7.8 10.7 74.3 Knee Ankle 7.7 34.0 44 >40 Right Tibial Motor (Abd Soto Brev) Ankle ? 3.8 <5 7.8 >2.5 11.3 100.0 Ankle Abd Soto Brev 3.8 0.0 Knee ? 10.3 5.9 8.3 75.6 Knee Ankle 6.5 35.0 54 >40 EMG ?Side Muscle Nerve Root Ins Act Fibs Psw Amp Dur Poly Recrt Int Pat Comment Right AbdHallucis MedPlantar S1-2 Nml Nml Nml Nml Nml 0 Nml Complete Right AntTibialis Dp Br Peron L4-5 Nml Nml Nml Nml Nml 0 Nml Complete Right PostTibialis Tibial L5, S1 Nml Nml Nml Nml Nml 0 Nml Complete Right MedGastroc Tibial S1-2 Nml Nml Nml Nml Nml 0 Nml Complete Right VastusMed Femoral L2-4 Nml Nml Nml Nml Nml 0 Nml Complete Left AbdHallucis MedPlantar S1-2 Nml Nml Nml Nml Nml 0 Nml Complete Left AntTibialis Dp Br Peron L4-5 Nml Nml Nml Nml Nml 0 Nml Complete Left PostTibialis Tibial L5, S1 Nml Nml Nml Nml Nml 0 Nml Complete Left MedGastroc Tibial S1-2 Nml Nml Nml Nml Nml 0 Nml Complete Left VastusMed Femoral L2-4 Nml Nml Nml Nml Nml 0 Nml Complete Paraspinal EMG ?Side Muscle Nerve Root Ins Act Fibs Psw Comment Right Lumbar Upper Rami Nml Nml Nml Right Lumbar Mid Rami Nml Nml Nml Right Lumbar Lower Rami Nml Nml Nml Left Lumbar Upper Rami Nml Nml Nml Left Lumbar Mid Rami Nml Nml Nml Left Lumbar Lower Rami Nml Nml Nml FINDINGS: Right peroneal nerve showed prolonged distal latency, normal amplitude and normal conduction velocity. No conduction block across fibular neck. All other nerves tested were within normal. Concentric needle EMG was performed in selected muscles of the bilateral lower extremity and lumbar paraspinals. Study did not reveal signs of electric abnormalities as shown in the table above. No myopathic looking units. IMPRESSION: 1. This is a minimally abnormal study, on a patient with established diagnosis of dermatomyositis. 2. Prolonged distal latencies on right peroneal nerve without conduction block across fibular neck. 3. There is no electrodiagnostic evidence for tibial neuropathy, lumbosacral plexopathy, lumbar radiculopathy, or peripheral neuropathy. Thank you for your kind referral. Humera Gaytan MD, ANDREW Board Certified, [place] [employer] and [employer] (ABPMR) Board Certified, [place] [employer] Electrodiagnostic [employer] (ABEM) CODIN [id number] x 2 extremities MTDD
--- OUTSIDE RECORDS SUMMARY | 2025-01-25 17:22 | XMS_ITS | Clinical Summary ---
Author Organization [facility] Address [address] [place] [address] Phone Care Team Providers Care Car Storer Name Role Phone Ivette Resendez Primary Care Provider [phone] Allergies Active Allergy Reactions Criticality Noted Date [...] - 12/29/2024 3:30 PM EDT Hospital Encounter [facility]rology Unit [address] [place] [phone] Mike Looney MD Jones, Christopher, MD [facility], Mejia Leigh MD Dysphagia, unspecified type (Primary Dx) Discharge Disposition: Home or Self Care from Last 3 Months Surgical History Surgery Date Site/Laterality Comments CHOLECYSTECTOMY PROCEDURE: SC LAPAROSCOPY SURG CHOLECYSTECTOMY WRIST SURGERY Right HYSTEROSCOPY Medical History Medical History Date Comments Hypothyroidism DX:Hypothyroidis m Migraine with aura, not intractable DX:Migraine with aura, not intractable Systemic lupus erythematosus (SLE) in adult ([facility] V24, [facility] V28) 02/13/2017 DX:Systemic lupus brittney thematosus (SLE) in adult ([facility]) Shoulder joint painful on mo vement, left 02/13/2017 DX:Shoulder joint painful on movement, left Anxiety DX:Anxiety Depression DX:Depression Peripheral vascular disease ([facility] V24) Family History Medical History Relation Name [...] for your loved ones. For example, child nutrition assistant or elderly care for an older [...] ANTIBODIES PROFILE Add-On 12/27/2024 4:33 PM EDT AOLNSO IFA WITH TITER AND PATTERN Add-On 12/27/2024 [...] Signed Date: 12/29/2024 09:34 ET Workstation ID: [id number] Transcribed By: Self Edit Transcribed Date: 12/29/2024 09:30 ET Narrative 12/29/2024 9:34 AM EDT HISTORY: The patient is a 54-year-old female with dysphagia for 4 months. FINDINGS: Wine Bottle Inspector PA radiograph of the chest demonstrates normal appearance of the bony structures. The cardiac and mediastinal contours are within normal limits. The lungs and costophrenic angles are clear. Wine Bottle Inspector lateral radiograph of the neck demonstrates no [...] 54-year-old female with dysphagia for 4months. FINDINGS: Wine Bottle Inspector PA radiograph of the chest demonstrates normal appearanceof the bony structures. The cardiac and mediastinal contours are withinnormal limits. The lungs and costophrenic angles are clear. Wine Bottle Inspector lateralradiograph of the neck demonstrates no prevertebral [...] Signed Date: 12/29/2024 09:34 ET Workstation ID: [id number] Transcribed By: Self Edit Transcribed Date: 12/29/2024 09:30 ET Maria E WALTER IMRasheeda FLUOROSCOPY PROCEDURE S Final Result * SST tube (12/29/2024 6:17 AM EDT) [facility] Extra Tube Hold for add-ons. 12/29/2024 8:01 AM EDT [facility] Comment:Auto resulted. Blood Venous blood specimen / Unknown Venipuncture / Unknown 12/29/2024 6:17 AM EDT 12/29/2024 6:51 AM EDT us Mejia Gold MD LAB BLOOD ORDERABLES F inal Result [facility] [address] [place] [address], [place] [phone] * (ABNORMAL) CBC auto differential (12/29/2024 6:17 AM EDT) Only the most recent of3 resultswithin the time period is included. [facility] WBC 6.0 4.8 - 10.8 K/[facility] LAB HEMETOLOGY METHOD 12/29/2024 7:13 AM EDT [facility] RBC 4.10 3.80 - 4.80 M/mcL LAB HEMETOLOGY METHOD 12/29/2024 7:13 AM [facility] Hemoglobin 11.7 11.5 - 16.0 g/dL LAB HEMETOLOGY METHOD 12/29/2024 7:13 AM [facility] Hematocrit 37.0 35.0 - 47.0 % LAB HEMETOLOGY METHOD 12/29/2024 7:13 AM [facility] MCV 89.4 79.0 - 98.0 FL LAB HEMETOLOGY METHOD 12/29/2024 7:13 AM [facility] MCH 28.3 27.0 - 32.0 pcg LAB HEMETOLOGY METHOD 12/29/2024 7:13 AM [facility] MCHC 31.6(L) 32.0 - 37.0 g/dL LAB HEMETOLOGY METHOD 12/29/2024 7:13 AM [facility] RDW 14.8 11.0 - 15.0 % LAB HEMETOLOGY METHOD 12/29/2024 7:13 AM [facility] Platelets 194 130 - 400 K/mcL LAB HEMETOLOGY METHOD 12/29/2024 7:13 AM [facility] MPV 12.3(H) 7.0 - 11.0 FL LAB HEMETOLOGY METHOD 12/29/2024 7:13 AM [facility] NRBC 0.0 <1.0 % LAB HEMETOLOGY METHOD 12/29/2024 7:13 AM [facility] NRBC Absolute 0.00 <0.10 K/mcL LAB HEMETOLOGY METHOD 12/29/2024 7:13 AM [facility] Neutrophils Relative 47.0 % LAB HEMETOLOGY METHOD 12/29/2024 7:13 AM [facility] Lymphocytes Relative 44.8 % LAB HEMETOLOGY METHOD 12/29/2024 7:13 AM [facility] Monocytes Relative 6.8 % LAB HEMETOLOGY METHOD 12/29/2024 7:13 AM [facility] Eosinophils Relative 0.8 % LAB HEMETOLOGY METHOD 12/29/2024 7:13 AM [facility] Basophils Relative 0.3 % LAB HEMETOLOGY METHOD 12/29/2024 7:13 AM [facility] Immature Granulocytes Relative 0.3 % LAB HEMETOLOGY METHOD 12/29/2024 7:13 AM [facility] Neutrophils Absolute 2.81 1.50 - 7.00 K/mcL LAB HEMETOLOGY METHOD 12/29/2024 7:13 AM [facility] Lymphocytes Absolute 2.69 1.00 - 5.00 K/mcL LAB HEMETOLOGY METHOD 12/29/2024 7:13 AM [facility] Monocytes Absolute 0.41 0.20 - 1.00 K/mcL LAB HEMETOLOGY METHOD 12/29/2024 7:13 AM [facility] Eosinophils Absolute 0.05 0.00 - 0.50 K/mcL LAB HEMETOLOGY METHOD 12/29/2024 7:13 AM [facility] Basophils Absolute 0.02 0.00 - 0.20 K/mcL LAB HEMETOLOGY METHOD 12/29/2024 7:13 AM [facility] Immature Granulocytes Absolute 0.02 0.00 - 0.03 K/mcL LAB HEMETOLOGY METHOD 12/29/2024 7:13 AM [facility] Blood Venous blood specimen / Unknown Venipuncture / Unknown 12/29/2024 6:17 AM EDT 12/29/2024 6:50 AM EDT Maria E WALTER LAB BLOOD ORDERABLES Lotus l Result [facility] [address] [place] [address], * (ABNORMAL) Basic metabolic panel (12/28/2024 5:45 AM EDT) Only the most recent of2 resultswithin the time period is included. Sodium 143 133 - 145 mmol/L LAB CHEMISTRY METHOD 12/28/2024 7:45 AM [facility] Potassium 3.4(L) 3.5 - 5.5 mmol/L LAB CHEMISTRY METHOD 12/28/2024 7:45 AM [facility] Chloride 109 96 - 110 mmol/L LAB CHEMISTRY METHOD 12/28/2024 7:45 AM [facility] CO2 28 21 - 32 mmol/L LAB CHEMISTRY METHOD [facility]/28[facility]24 [facility] Anion Gap 6 3 - 11 LAB CHEMISTRY METHOD 12/28/2024 7:45 AM [facility] Glucose 96 70 - 100 mg/dL LAB CHEMISTRY METHOD 12/28/2024 7:45 AM [facility] BUN 15 5 - 25 mg/dL LAB CHEMISTRY METHOD 12/28/2024 7:45 AM [facility] Creatinine 0.28(L) 0.50 - 1.10 mg/dL LAB CHEMISTRY METHOD 12/28/2024 7:45 AM [facility] eGFR 127 >=60 mL/min/1. 73m2 LAB CHEMISTRY METHOD 12/28/2024 7:45 AM [facility] Comment:Calculation based on the Chronic Kidney Disease Epidemiology Collaboration (CKD-EPI) equation refit without adjustment for race. BUN/Creatinine Ratio 53.6 LAB CHEMISTRY METHOD 12/28/2024 7:45 AM [facility] Calcium 8.7 8.5 - 10.5 mg/dL LAB CHEMISTRY METHOD 12/28/2024 7:45 AM EDT [facility] Blood Venous blood specimen / Unknown Venipuncture / Unknown 12/28/2024 5:45 AM EDT 12/28/2024 6:27 AM EDT us Curt Monreal MD LAB BLOOD ORDERABLES Final Result Performing Organization Address [facility]/ZIP Co de Phone Number [facility] [address] [place] [address], [place] [phone] * Troponin I high sensitivity (NOW and then in 1 hour) (12/28/2024 2:40 AM EDT) Only the most recent of2 resultswithin the time period is included. [facility] High Sensitivity Troponin I 5 <=54 ng/L LAB CHEMISTRY METHOD 12/28/2024 3:15 AM EDT [facility] Blood Venous blood specimen / Unknown Venipuncture / Unknown 12/28/2024 2:40 AM EDT 12/28/2024 2:47 AM EDT Narrative [facility] - 12/28/2024 3:15 AM EDT High levels of biotin in samples may falsely decrease hsTroponin values. Use caution when interpreting hsTroponin results in patients taking biotin who exhibit renal impairment (eGFR <60) or in patients taking more than 20 mg/day of biotin. us Curt Monreal MD LAB BLOOD ORDERABLES Final Result Performing Organization Address [facility]/ZIP Co de Phone Number [facility] [address] [place] [address], [place] [phone] * Respiratory virus panel molecular study (12/28/2024 1:20 AM EDT) [facility] Adenovirus Detection by PCR Not Detected Not Detected LAB MICROBIOLOGY METHOD 12/28/2024 2:25 AM EDT [facility] Influenza A PCR Not Detected Not Detected LAB MICROBIOLOGY METHOD 12/28/2024 2:25 AM EDT [facility] Influenza B PCR Not Detected Not Detected LAB MICROBIOLOGY METHOD 12/28/2024 2:25 AM EDT [facility] Coronavirus 229E Not Detected Not Detected LAB MICROBIOLOGY METHOD 12/28/2024 2:25 AM EDT [facility] Coronavirus HKU1 Not Detected Not Detected LAB MICROBIOLOGY METHOD 12/28/2024 2:25 AM EDT [facility] Coronavirus OC43 Not Detected Not Detected LAB MICROBIOLOGY METHOD 12/28/2024 2:25 AM EDT [facility] Coronavirus NL63 Not Detected Not Detected LAB MICROBIOLOGY METHOD 12/28/2024 2:25 AM EDT [facility] Parainfluenza Virus 1 Not Detected Not Detected LAB MICROBIOLOGY METHOD 12/28/2024 2:25 AM EDT [facility] Parainfluenza Virus 2 Not Detected Not Detected LAB MICROBIOLOGY METHOD 12/28/2024 2:25 AM EDT [facility] Parainfluenza Virus 3 Not Detected Not Detected LAB MICROBIOLOGY METHOD 12/28/2024 2:25 AM EDT [facility] Parainfluenza Virus 4 Not Detected Not Detected LAB MICROBIOLOGY METHOD 12/28/2024 2:25 AM EDT [facility] RSV PCR Not Detected Not Detected LAB MICROBIOLOGY METHOD 12/28/2024 2:25 AM EDT [facility] Human Metapneumovirus A and B Not Detected Not Detected LAB MICROBIOLOGY METHOD 12/28/2024 2:25 AM EDT [facility] Rhinovirus/Entero virus Not Detected Not Detected LAB MICROBIOLOGY METHOD 12/28/2024 2:25 AM EDT [facility] Bordetella pertussis Not Detected Not Detected LAB MICROBIOLOGY METHOD 12/28/2024 2:25 AM EDT [facility] Bordetella parapertussis Not Detected Not Detected LAB MICROBIOLOGY METHOD 12/28/2024 2:25 AM EDT [facility] Mycoplasma pneumo by PCR Not Detected Not Detected LAB MICROBIOLOGY METHOD 12/28/2024 2:25 AM EDT [facility] Chlamydia pneumoniae Not Detected Not Detected LAB MICROBIOLOGY METHOD 12/28/2024 2:25 AM EDT [facility] SARS COV-2 Not Detected Not Detected LAB MICROBIOLOGY METHOD 12/28/2024 2:25 AM EDT [facility] Swab Both anterior nares / Unknown Non-blood Collection / Unknown 12/28/2024 1:20 AM EDT 12/28/2024 1:34 AM EDT [facility] - 12/28/2024 2:25 AM EDT Testing was performed using the [employer] Respiratory Pathogen PCR Assay. All results must [...] MICROBIOLOGY - GENERAL MIKE QUINTANILLA Final Result [facility] [address] [place] [address], * (ABNORMAL) Urinalysis with reflex microscopic and culture (12/28/2024 1:12 AM EDT) Pathologist [facility] [place] Urine 1.012 1.003 - 1.030 LAB URINALYSIS - AUTOMATED METHOD 12/28/2024 1:30 AM EDT [facility] pH, Urine 6.5 5.0 - 8.0 pH LAB URINALYSIS - AUTOMATED METHOD 12/28/2024 1:30 AM [facility] Leukocytes, Urine Trace(A) Negative LAB URINALYSIS - AUTOMATED METHOD 12/28/2024 1:30 AM T [facility] Nitrite, Urine Negative Negative LAB URINALYSIS - AUTOMATED METHOD 12/28/2024 1:30 AM [facility] Protein, Urine Negative <=Trace mg/dL LAB URINALYSIS - AUTOMATED METHOD 12/28/2024 1:30 AM [facility] Glucose, Urine Negative Negative mg/dL LAB URINALYSIS - AUTOMATED METHOD 12/28/2024 1:30 AM [facility] Ketones, Urine Negative Negative mg/dL LAB URINALYSIS - AUTOMATED METHOD 12/28/2024 1:30 AM [facility] Urobilinogen, Urine 0.2 0.2 - 1.0 mg/dL LAB URINALYSIS - AUTOMATED METHOD 12/28/2024 1:30 AM [facility] Bilirubin, Urine Negative Negative LAB URINALYSIS - AUTOMATED METHOD 12/28/2024 1:30 AM [facility] Blood, Urine Negative Negative LAB URINALYSIS - AUTOMATED METHOD 12/28/2024 1:30 AM [facility] RBC, Urine 0.9 0 - 4 /HPF LAB URINALYSIS - AUTOMATED METHOD 12/28/2024 1:30 AM [facility] WBC, Urine 5.5(H) 0 - 4 /HPF LAB URINALYSIS - AUTOMATED METHOD 12/28/2024 1:30 AM [facility] Squamous Epithelial, Urine >100(H) 0 - 60 /LPF LAB URINALYSIS - AUTOMATED METHOD 12/28/2024 1:30 AM [facility] Bacteria, Urine Negative Negative /HPF LAB URINALYSIS - AUTOMATED METHOD 12/28/2024 1:30 AM [facility] Hyaline Casts, Urine 1.6 0 - 3 /LPF LAB URINALYSIS - AUTOMATED METHOD 12/28/2024 1:30 AM [facility] Urine Urine specimen obtained by clean catch procedure / Unknown Non-blood Collection / Unknown 12/28/2024 1:12 AM EDT 12/28/2024 1:20 AM EDT us Lakisha WALTER LAB URINE ORDERABLES Final Resu lt Performing Organization Address [facility]/ZIP Co de Phone Number [facility] [address] [place] [address], [place] [phone] * Smith urine culture tube (12/28/2024 1:12 AM EDT) Extra Tube Hold for add-ons. 12/28/2024 3:04 AM EDT [facility] Comment:Auto resulted. Urine Urine specimen obtained by clean catch procedure / Unknown Non-blood Collection / Unknown 12/28/2024 1:12 AM EDT 12/28/2024 1:20 AM EDT Lakisha WALTER LAB URINE ORDERABLES Final Resu lt Performing Organization Address [facility]/ZIP Co de Phone Number [facility] [address] [place] [address], [place] [phone] * Drug abuse screen 8a panel, urine (12/28/2024 1:12 AM EDT) Amphetamine Screen, Ur Negative Negative LAB CHEMISTRY METHOD 12/28/2024 1:47 AM EDT [facility] Comment:Certain OTC medicati ons containing ephedrine, phenylephrine, pseudoephedrine and phenylpropanolamine can cause false positive results. Barbiturate Screen, Ur Negative Negative LAB CHEMISTRY METHOD 12/28/2024 1:47 AM EDT [facility] Benzodiazepine Screen, Ur Negative Negative LAB CHEMISTRY METHOD 12/28/2024 1:47 AM EDT [facility] Cocaine Screen, Ur Negative Negative LAB CHEMISTRY METHOD 12/28/2024 1:47 AM EDT [facility] Opiate Screen, Ur Negative Negative LAB CHEMISTRY METHOD 12/28/2024 1:47 AM EDT [facility] Cannabinoid (THC) Screen, Ur Negative Negative LAB CHEMISTRY METHOD 12/28/2024 1:47 AM EDT [facility] Comment:Specimens from patie nts taking pantoprazole sodium (Protonix) have been shown to produce false positive results. Oxycodone Screen, Ur Negative Negative LAB CHEMISTRY METHOD 12/28/2024 1:47 AM EDT [facility] Fentanyl, Ur Negative Negative LAB CHEMISTRY METHOD 12/28/2024 1:47 AM EDT [facility] Urine Urine specimen obtained by clean catch procedure / Unknown Non-blood Collection / Unknown 12/28/2024 1:12 AM EDT 12/28/2024 1:20 AM EDT Narrative [facility] - 12/28/2024 1:47 AM EDT [...] Monreal MD LAB URINE ORDERABLES Final Result [facility] [address] [place] [address], * Culture urine (12/28/2024 1:12 AM EDT) Culture, Urine 50,000-99,000 CFU/mL Mixed urogenital red, no uropathogens present. Suggest repeat specimen if clinically indicated. 12/29/2024 10:44 AM EDT [facility] Urine Urine specimen obtained by clean catch procedure / Unknown Non-blood Collection / Unknown 12/28/2024 1:12 AM EDT 12/28/2024 1:30 AM EDT Lakisha WALTER LAB MICROBIOLOGY - GENERAL ORDMojgan QUINTANILLA Final Result Performing Organization Address City/[facility]/ZIP Co de Phone Number [facility] [address] [place] [address], [place] [phone] * ECG 12 lead (12/27/2024 11:45 PM EDT) Ventricular Rate ECG 91 BPM GEMUSE Atrial Rate 91 BPM GEMUSE P-R Interval 150 ms GEMUSE QRS Duration 90 ms GEMUSE Q-T Interval 362 ms GEMUSE QTc 445 ms GEMUSE P Wave [place] 34 degrees GEMUSE R [place] 11 degrees GEMUSE T [place] 5 degrees GEMUSE ECG Interpretation Normal sinus [...] ECG ORDERABLES Final Result Performing Organization Address City/[facility] Co de Phone Number GEMUSE * [...] Signed Date: 12/28/2024 10:30 ET Workstation ID: [id number] Transcribed By: Self Edit Transcribed Date: 12/28/2024 [...] Signed Date: 12/28/2024 10:30 ET Workstation ID: [id number] Transcribed By: Self Edit Transcribed Date: 12/28/2024 10:28 ET Curt Monreal MD IMG XR PROCEDURES Final Res ult * Extractable Nuclear Antibodies Profile (12/27/2024 4:33 PM EDT) SM Ab Negative Negative LAB CHEMISTRY METHOD 01/01/2025 10:21 AM EDT [facility] SM Antibody Quant 3 <20 units LAB CHEMISTRY METHOD 01/01/2025 10:21 AM EDT [facility] PRODUCT SUPPORT ANALYST Ab Negative Negative LAB CHEMISTRY METHOD 01/01/2025 10:21 AM EDT [facility] PRODUCT SUPPORT ANALYST Antibody Quant 5 <20 units LAB CHEMISTRY METHOD 01/01/2025 10:21 AM EDT [facility] Blood Venous blood specimen / Unknown Venipuncture / Unknown 12/27/2024 4:33 PM EDT 12/27/2024 5:00 PM EDT us Curt Monreal MD LAB BLOOD ORDERABLES Final Result Performing Organization Address [facility]/ZIP Co de Phone Number [facility] [address] [place] [address], [place] [phone] * ALONSO IFA with titer and pattern (12/27/2024 4:33 PM EDT) [facility] ALONSO Negative Negative 12/29/2024 12:46 PM EDT [facility] Comment:ALONSO performed by ind irect immunofluorescence (IFA) using HEp-2 substrate. Blood Venous blood specimen / Unknown Venipuncture / Unknown 12/27/2024 4:33 PM EDT 12/27/2024 5:00 PM EDT us Curt Monreal MD LAB BLOOD ORDERABLES Final Result Performing Organization Address [facility] Co de Phone Number [facility] [address] [place] [address], [place] [phone] * DNA antibody, double-stranded (12/27/2024 4:33 PM EDT) [facility] Anti-DNA Double Stranded Antibody LAB CHEMISTRY METHOD 12/30/2024 7:37 AM EDT [facility] ds DNA Ab LAB CHEMISTRY METHOD 12/30/2024 7:37 AM EDT [facility] Comment:Anti-dsDNA test not indicated when ALONSO is negative. Blood Venous blood specimen / Unknown Venipuncture / Unknown 12/27/2024 4:33 PM EDT 12/27/2024 5:00 PM EDT us Curt Monreal MD LAB BLOOD ORDERABLES Final Result Performing Organization Address [facility] Co de Phone Number [facility] [address] [place] [address], [place] [phone] * C3 complement (12/27/2024 4:33 PM EDT) C3 Complement 121 88 - 201 mg/dL LAB CHEMISTRY METHOD 12/28/2024 1:15 AM EDT [facility] Blood Venous blood specimen / Unknown Venipuncture / Unknown 12/27/2024 4:33 PM EDT 12/27/2024 5:00 PM EDT us Curt Monreal MD LAB BLOOD ORDERABLES Final Result Performing Organization Address City/[facility]/ZIP Co de Phone Number [facility] [address] [place] [address], [place] [phone] * C4 complement (12/27/2024 4:33 PM EDT) C4 Complement 23 16 - 47 mg/dL LAB CHEMISTRY METHOD 12/28/2024 1:15 AM EDT [facility] Blood Venous blood specimen / Unknown Venipuncture / Unknown 12/27/2024 4:33 PM EDT 12/27/2024 5:00 PM EDT us Curt Monreal MD LAB BLOOD ORDERABLES Final Result Performing Organization Address [facility] Co de Phone Number [facility] [address] [place] [address], [place] [phone] * Magnesium (12/27/2024 4:33 PM EDT) Magnesium 2.0 1.9 - 2.6 mg/dL LAB CHEMISTRY METHOD 12/27/2024 6:04 PM EDT [facility] Blood Venous blood specimen / Unknown Venipuncture / Unknown 12/27/2024 4:33 PM EDT 12/27/2024 5:00 PM EDT Mary WALTER LAB BLOOD ORDERABLES Fin al Result Performing Organization Address City/[facility]/ZIP Co de Phone Number [facility] [address] [place] [address], [place] [phone] * Creatine kinase (12/27/2024 4:33 PM EDT) Total CK 43 22 - 269 unit/L LAB CHEMISTRY METHOD 12/28/2024 1:30 AM EDT [facility] Blood Venous blood specimen / Unknown Venipuncture / Unknown 12/27/2024 4:33 PM EDT 12/27/2024 5:00 PM EDT us Curt Monreal MD LAB BLOOD ORDERABLES Final Result [facility] [address] [place] [address], * SCREENING MAMMOGRAPHY BI 2-VIEW BREAST INC [...] RESULTING AGENCY - 06/18/2020 2:05 PM EDT [id number] THINPREP PAP, IMAGED: NEGATIVE FOR SQUAMOUS INTRAEPITHELIAL [...] Relevant to Health Maintenance Insurance [place] Advance Directives * Full Code - Default [...] currently active code status orders. Care Teams Car Storer Relationship Specialty Start Date End Date Ivette Resendez PA [address] [place] [id number] PCP - General Internal Medicine 02/13/17
== END 2025-01-25 09:27 | disposition home or self-care (01) ==
LOC: HO.NEURO 09:26
PROVIDERS: PCP Physician Assistant; Visit Provider Internal Medicine Rheumatology
DX: R20.2 Paresthesia of skin (principal)
CPT/HCPCS: 95886; 95909

== ENCOUNTER → 2025-01-25 09:29 | Outpatient (BNV) | payer MEDICAID, SELFPAY | PROVIDERS: PCP Physician Assistant; Visit Provider Physical Medicine & Rehabilitation | DX: R20.0 Anesthesia of skin (principal) | CPT/HCPCS: 95886; 95909 ==

== ENCOUNTER 2025-02-23 13:26 | Outpatient (AMB) | payer MEDICAID, SELFPAY ==
[2025-02-23 13:33] VITALS: BP 130/90; PULSE 97; O2SAT 98; BMI 38.5
--- NOTE | 2025-02-23 13:33 | MHC.OFFVIS ---
Vital Signs 02/23/25 13:33 Height 5 ft 2 in Weight 210 lb 8.663 oz BMI 38.5 BP 130/90 H Blood Pressure Location Rt brachial Position Sitting Pulse 97 Pulse Source Pulse Oximeter Pulse Oximetry (%) 98 Oxygen Delivery Method Room Air Intake Visit Reasons: follow up Intake Note: Patient presents today for a follow up appt. Accompanied by: Self / Same As Patient Allergies demarol Allergy (Severe, Uncoded 02/24/24 13:47) Anaphylaxis HPI HPI follow up: Details: She had an infusion reaction with rituximab. She feels that her muscle and joint pain has improved. She has less back pain. She continues to have pruritus in her face. She has not been consistent with taking hydroxychloroquine regularly. She takes 1 tablet a day because she is afraid of ocular side effects. She has not had methotrexate for a few months. [facility] Medical History Recurrent dislocation of right upper arm Physical Exam Vital Signs: Last Vital Signs Pulse 97 02/23/25 13:33 BP 130/90 H 02/23/25 13:33 Pulse Ox 98 02/23/25 13:33 Oxygen Delivery Method Room Air 02/23/25 13:33 BMI result Body Mass Index 38.5 Const Other: General: Comfortable CVS: RRR Respiratory: clear to auscultation bilaterally. Good respiratory effort Skin: Malar erythema. She also has erythema of her forehead. MSK: Tender left shoulder. Left shoulder limited abduction 45 degrees. She has limited internal and external rotation of left shoulder due to pain. Right shoulder abduction 160 degrees with good internal and external rotation. No synovitis. Results Reviewed Results Reviewed: EMG January 2025 bilateral lower extremities FINDINGS: Right peroneal nerve showed prolonged distal latency, normal amplitude and normal conduction velocity. No conduction block across fibular neck. All other nerves tested were within normal. Concentric needle EMG was performed in selected muscles of the bilateral lower extremity and lumbar paraspinals. Study did not reveal signs of electric abnormalities as shown in the table above. No myopathic looking units. IMPRESSION: 1. This is a minimally abnormal study, on a patient with established diagnosis of dermatomyositis. 2. Prolonged distal latencies on right peroneal nerve without conduction block across fibular neck. 3. There is no electrodiagnostic evidence for tibial neuropathy, lumbosacral plexopathy, lumbar radiculopathy, or peripheral neuropathy. Assessment & Plan Assessment & Plan (1) Dermatomyositis: Comment: Relapsed, uncontrolled cutaneous manifestation of dermatomyositis with hydroxychloroquine and methotrexate and multiple courses of prednisone. 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 She has revealed to me that she has not been consistent with taking hydroxychloroquine. She has not had methotrexate for few months. She had rituximab infusion but developed infusion reaction with facial flushing and headache with her 2nd dose. At the time of reaction her rate was at 250 milligrams/hour. When rate was reduced to 200 milligrams/hour she did not have any further reaction. She felt fine going home and has noted improvement in joint pain and muscle pain with increased strength. She continues to have pruritus in her face. Need more time after receiving rituximab for full benefit. 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 Hydroxychloroquine 08/2021- and MMF 08/2021-05/2024 relapse cutaneous disease. MTX 05/2024-. She developed inflammatory arthritis 2024, which is a rare manifestation of dermatomyositis better controlled with increasing methotrexate. Methotrexate caused transaminitis 09/2024 resolved with dose reduction 17.5 once weekly. 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 X-ray revealed mild AC joint arthritis. [facility] from [facility] 05/30/2021 bilateral shoulders were normal. Unable to participate in PT due to uncontrolled pain. Repeat cortisone injection provides temporary relief. Failed Tylenol and nabumetone. She missed her appointment on September 17 for MRI left shoulder. Code(s): M25.512 - Pain in left shoulder Category: Medical Qualifiers: Chronicity: chronic Qualified Code(s): M25.512 - Pain in left shoulder; G89.29 - Other chronic pain Plan: MRI left shoulder ordered for further evaluation of rotator cuff tendon tear, which will aid in next steps in treatment with surgical referral. I have asked her to schedule MRI. Return to clinic in 3 months (4) Tendonitis of left rotator cuff: Code(s): M75.82 - Other shoulder lesions, left shoulder Category: Medical Plan: See above (5) Paresthesia of bilateral legs: Comment: Recent workup reveals that she has prediabetes. Prediabetes can rarely present with lower extremity neuropathy but EMG of bilateral lower extremities did not reveal etiology. Improving since having rituximab infusion. Code(s): R20.2 - Paresthesia of skin Category: Medical Plan: If symptoms worsen, I recommend PCP evaluation/neurology referral Medications: Changed From methotrexate sodium 17.5 mg (7 x 2.5 mg) PO QWEEK 4 weeks 28 tabs 2RF To methotrexate sodium 17.5 mg (7 x 2.5 mg) PO QWEEK 84 tabs 0RF 12 weeks Refilled folic acid 1 mg PO DAILY 90 tabs 4RF Discontinued hydroxychloroquine Discontinued Reason: Doctor's Order 400 mg (2 x 200 mg) PO DAILY 180 tabs 1RF nabumetone Take with food. Avoid ibuprofen and Aleve. Okay to take Tylenol Discontinued Reason: Doctor's Order 500 mg PO BID 60 tabs 2RF prednisone Take 4 tablets daily for 5 days, 3 tablets daily for 5 days, 2 tablets daily for 5 days, 1 tablet daily for 5 days then stop. Take prednisone with food. Discontinued Reason: Doctor's Order 5 mg PO DIRECTED 50 tabs 0RF Coding Level of Care Code Est Pt Level 4 (47243) Add On Problem Visit Only Diagnoses Dermatomyositis M33.13 Other usp (current) drug therapy Z79.899 Chronic left shoulder pain M25.512; G89.29 Chronicity: chronic Tendonitis of left rotator cuff M75.82 Paresthesia of bilateral legs R20.2
--- OUTSIDE RECORDS SUMMARY | 2025-02-23 17:32 | XMS_ITS | Clinical Summary ---
Author Organization [facility] Address [address] [place] [address] Phone Care Team Providers Care Manager Film Name Role Phone Ivette Resendez Primary Care Provider [phone] Allergies Active Allergy Reactions Criticality Noted Date [...] by mouth 2 (two) times a day. Active QUEtiapine fumarate ER (SEROquel XR) 50 mg 24 hr tablet Take 1 tablet (50 mg total) by mouth at bedtime. Active traMADoL (ULTRAM) 50 mg tablet Take 1 tablet (50 mg total) by mouth daily. 5 Active Active Problems Problem Noted Date Diagnosed Date Dysphagia 12/27/2024 Encounters Date Type Department Care Team Description 12/27/2024 10:05 PM EDT - 12/29/2024 3:30 PM EDT Hospital Encounter [facility] Urology Unit [address] [place] [address] Mike Looney MD Jones, Christopher, MD Santoyo-P[place] co, Mejia Leigh MD Dysphagia, unspecified type (Primary Dx) Discharge Disposition: Home or Self Care from Last 3 Months Surgical History Surgery Date Site/Laterality Comments CHOLECYSTECTOMY PROCEDURE: UT LAPAROSCOPY SURG CHOLECYSTECTOMY WRIST SURGERY Right HYSTEROSCOPY Medical History Medical History Date Comments Hypothyroidism DX:Hypothyroidis m Migraine with aura, not intractable DX:Migraine with aura, not intractable Systemic lupus erythematosus (SLE) in adult ([facility]/HCC V24, CMS/HCC V28) 02/13/2017 DX:Systemic lupus brittney thematosus (SLE) in adult ([facility]) Shoulder joint painful on mo vement, left 02/13/2017 DX:Shoulder joint painful on movement, left Anxiety DX:Anxiety Depression DX:Depression Peripheral vascular disease ([facility] V24) Family History Medical History [...] for your loved ones. For example, child support investigator or elderly care for an older adult? [...] on file Sexual Orientation Not on file Last Filed Vital Signs Vital Sign Reading [...] Signed Date: 12/29/2024 09:34 ET Workstation ID: [id number] Transcribed By: Self Edit Transcribed Date: 12/29/2024 09:30 ET Narrative 12/29/2024 9:34 AM EDT HISTORY: The patient is a 54-year-old female with dysphagia for 4 months. FINDINGS: [employer] PA radiograph of the chest demonstrates normal appearance of the bony structures. The cardiac and mediastinal contours are within normal limits. The lungs and costophrenic angles are clear. [employer] lateral radiograph of the neck demonstrates no [...] 54-year-old female with dysphagia for 4months. FINDINGS: Superintendent [employer] PA radiograph of the chest demonstrates normal appearanceof the bony structures. The cardiac and mediastinal contours are withinnormal limits. The lungs and costophrenic angles are clear. [employer] lateralradiograph of the neck demonstrates no prevertebral [...] Signed Date: 12/29/2024 09:34 ET Workstation ID: [id number] Transcribed By: Self Edit Transcribed Date: 12/29/2024 09:30 ET Maria E WALTER IMG FLUOROSCOPY PROCEDURE S Final Result * SST tube (12/29/2024 6:17 AM EDT) Pathologist [facility] [place] Extra Tube Hold for add-ons. 12/29/2024 8:01 AM EDT [facility] Comment:Auto resulted. Blood Venous blood specimen / Unknown Venipuncture / Unknown 12/29/2024 6:17 AM EDT 12/29/2024 6:51 AM EDT Mejia Gold MD LAB BLOOD ORDERABLES F inal Result [facility] [address] [place] [address], [place] [phone] * (ABNORMAL) CBC auto differential (12/29/2024 6:17 AM EDT) Only the most recent of3 resultswithin the time period is included. WBC 6.0 4.8 - 10.8 K/mcL LAB HEMETOLOGY METHOD 12/29/2024 7:13 AM EDT [facility] RBC 4.10 3.80 - 4.80 M/mcL LAB HEMETOLOGY METHOD 12/29/2024 7:13 AM EDT [facility] Hemoglobin 11.7 11.5 - 16.0 [...] % LAB HEMETOLOGY METHOD 12/29/2024 7:13 AM EDT [facility] Basophils Relative 0.3 % LAB HEMETOLOGY METHOD 12/29/2024 7:13 AM EDT [facility] Immature Granulocytes Relative 0.3 % LAB HEMETOLOGY METHOD 12/29/2024 7:13 AM EDT [facility] Neutrophils Absolute 2.81 1.50 - 7.00 K/mcL LAB HEMETOLOGY METHOD 12/29/2024 7:13 AM EDT [facility] Lymphocytes Absolute 2.69 1.00 - 5.00 K/mcL LAB HEMETOLOGY METHOD 12/29/2024 7:13 AM EDT [facility] Monocytes Absolute 0.41 0.20 - 1.00 K/mcL LAB HEMETOLOGY METHOD 12/29/2024 7:13 AM EDT [facility] Eosinophils Absolute 0.05 0.00 - 0.50 K/mcL LAB HEMETOLOGY METHOD 12/29/2024 7:13 AM EDT [facility] Basophils Absolute 0.02 0.00 - 0.20 K/mcL LAB HEMETOLOGY METHOD 12/29/2024 7:13 AM EDT [facility] Immature Granulocytes Absolute 0.02 0.00 - 0.03 K/mcL LAB HEMETOLOGY METHOD 12/29/2024 7:13 AM EDT [facility] Blood Venous blood specimen / Unknown Venipuncture / Unknown 12/29/2024 6:17 AM EDT 12/29/2024 6:50 AM EDT Maria E WALTER LAB BLOOD ORDERABLES Lotus linares Result [facility] [address] [place] [address], * (ABNORMAL) Basic metabolic panel (12/28/2024 5:45 [...] 12/28/2024 7:45 AM [facility] Anion Gap 6 3 - [...] 12/28/2024 7:45 AM [facility] Blood Venous blood specimen / Unknown Venipuncture / Unknown 12/28/2024 5:45 AM EDT 12/28/2024 6:27 AM EDT us Curt Monreal MD LAB BLOOD ORDERABLES Final Result Performing Organization Address [facility]/ZIP Co de Phone Number [facility] [address] [place] [address], [place] [phone] * Troponin I high sensitivity (NOW and then in 1 hour) (12/28/2024 2:40 AM EDT) Only the most recent of2 resultswithin the time period is included. [facility] [address] [facility] High Sensitivity Troponin I 5 <=54 ng/L LAB CHEMISTRY METHOD 12/28/2024 3:15 AM EDT [facility] Blood Venous blood specimen / Unknown Venipuncture / Unknown 12/28/2024 2:40 AM EDT 12/28/2024 2:47 AM EDT Narrative [facility] - 12/28/2024 3:15 AM EDT High levels of biotin in samples may falsely decrease hsTroponin values. Use caution when interpreting hsTroponin results in patients taking biotin who exhibit renal impairment (eGFR <60) or in patients taking more than 20 mg/day of biotin. us Curt Monreal MD LAB BLOOD ORDERABLES Final Result Performing Organization Address [facility] de Phone Number [facility] [address] [place] [address], [place] [phone] * Respiratory virus panel molecular study (12/28/2024 1:20 AM EDT) [facility] [address] [facility] Adenovirus Detection by PCR Not Detected Not Detected LAB MICROBIOLOGY METHOD 12/28/2024 2:25 AM EDT [facility] Influenza A PCR Not Detected Not Detected LAB MICROBIOLOGY METHOD 12/28/2024 2:25 AM EDT [facility] Influenza B PCR Not Detected Not Detected LAB MICROBIOLOGY METHOD 12/28/2024 2:25 AM EDT [facility] Coronavirus 229E Not Detected Not Detected LAB MICROBIOLOGY METHOD 12/28/2024 2:25 AM EDT [facility] Coronavirus HKU1 Not Detected Not Detected LAB MICROBIOLOGY METHOD 12/28/2024 2:25 AM EDT [facility] Coronavirus OC43 Not Detected Not Detected LAB MICROBIOLOGY METHOD 12/28/2024 2:25 AM EDT [facility] Coronavirus NL63 Not Detected Not Detected LAB MICROBIOLOGY METHOD 12/28/2024 2:25 AM EDT [facility] Parainfluenza Virus 1 Not Detected Not Detected LAB MICROBIOLOGY METHOD 12/28/2024 2:25 AM EDT [facility] Parainfluenza Virus 2 Not Detected Not Detected LAB MICROBIOLOGY METHOD 12/28/2024 2:25 AM EDT [facility] Parainfluenza Virus 3 Not Detected Not Detected LAB MICROBIOLOGY METHOD 12/28/2024 2:25 AM EDT [facility] Parainfluenza Virus 4 Not Detected Not Detected LAB MICROBIOLOGY METHOD 12/28/2024 2:25 AM EDT [facility] RSV PCR Not Detected Not Detected LAB MICROBIOLOGY METHOD 12/28/2024 2:25 AM EDT [facility] Human Metapneumovirus A and B Not Detected Not Detected LAB MICROBIOLOGY METHOD 12/28/2024 2:25 AM EDT [facility] Rhinovirus/Entero virus Not Detected Not Detected LAB MICROBIOLOGY METHOD 12/28/2024 2:25 AM EDT [facility] Bordetella pertussis Not Detected Not Detected LAB MICROBIOLOGY METHOD 12/28/2024 2:25 AM EDT [facility] Bordetella parapertussis Not Detected Not Detected LAB MICROBIOLOGY METHOD 12/28/2024 2:25 AM EDT [facility] Mycoplasma pneumo by PCR Not Detected Not Detected LAB MICROBIOLOGY METHOD 12/28/2024 2:25 AM EDT [facility] Chlamydia pneumoniae Not Detected Not Detected LAB MICROBIOLOGY METHOD 12/28/2024 2:25 AM EDT [facility] SARS COV-2 Not Detected Not Detected LAB MICROBIOLOGY METHOD 12/28/2024 2:25 AM EDT [facility] Swab Both anterior nares / Unknown Non-blood Collection / Unknown 12/28/2024 1:20 AM EDT 12/28/2024 1:34 AM EDT [facility] - 12/28/2024 2:25 AM EDT Testing was performed using the Swrve Respiratory Pathogen PCR Assay. All results must [...] MICROBIOLOGY - GENERAL MIKE QUINTANILLA Final Result [facility] [address] [place] [address], [place] [phone] * (ABNORMAL) Urinalysis with reflex microscopic and culture (12/28/2024 1:12 AM EDT) Specific [place] Urine 1.012 1.003 - 1.030 LAB URINALYSIS - AUTOMATED METHOD 12/28/2024 1:30 AM [facility] pH, Urine 6.5 5.0 - 8.0 pH LAB URINALYSIS - AUTOMATED METHOD 12/28/2024 1:30 AM [facility] Leukocytes, Urine Trace(A) Negative LAB URINALYSIS - AUTOMATED METHOD 12/28/2024 1:30 AM [facility] Nitrite, Urine Negative Negative LAB [...] ORDERABLES Final Resu lt Performing Organization Address City/[facility]/ZIP Co de Phone Number [facility] [address] [place] [address], * Smith urine culture tube (12/28/2024 1:12 AM EDT) Extra Tube Hold for add-ons. 12/28/2024 3:04 AM EDT [facility] Comment:Auto resulted. Urine Urine specimen obtained by clean catch procedure / Unknown Non-blood Collection / Unknown 12/28/2024 1:12 AM EDT 12/28/2024 1:20 AM EDT Lakisha WALTER LAB URINE ORDERABLES Final Resu lt Performing Organization Address [facility]/ZIP Co de Phone Number [facility] [address] [place] [address], [place] [phone] * Drug abuse screen 8a panel, urine (12/28/2024 1:12 AM EDT) Amphetamine Screen, Ur Negative Negative LAB CHEMISTRY METHOD 12/28/2024 1:47 AM EDT [facility] Comment:Certain OTC medicati ons containing ephedrine, phenylephrine, pseudoephedrine and phenylpropanolamine can cause false positive results. Barbiturate Screen, Ur Negative Negative LAB CHEMISTRY METHOD 12/28/2024 1:47 AM EDT [facility] Benzodiazepine Screen, Ur Negative Negative LAB CHEMISTRY METHOD 12/28/2024 1:47 AM EDT [facility] Cocaine Screen, Ur Negative Negative LAB CHEMISTRY METHOD 12/28/2024 1:47 AM EDT [facility] Opiate Screen, Ur Negative Negative LAB CHEMISTRY METHOD 12/28/2024 1:47 AM EDT [facility] Cannabinoid (THC) Screen, Ur Negative Negative LAB CHEMISTRY METHOD 12/28/2024 1:47 AM EDT [facility] Comment:Specimens from patie nts taking pantoprazole sodium (Protonix) have been shown to produce false positive results. Oxycodone Screen, Ur Negative Negative LAB CHEMISTRY METHOD 12/28/2024 1:47 AM EDT [facility] Fentanyl, Ur Negative Negative LAB CHEMISTRY METHOD 12/28/2024 1:47 AM EDT [facility] Urine Urine specimen obtained by clean catch procedure / Unknown Non-blood Collection / Unknown 12/28/2024 1:12 AM EDT 12/28/2024 1:20 AM EDT Narrative [facility] - 12/28/2024 1:47 AM EDT [...] Monreal MD LAB URINE ORDERABLES Final Result [facility] [address] [place] [address], [place] [phone] * Culture urine (12/28/2024 1:12 AM EDT) Culture, Urine 50,000-99,000 CFU/mL Mixed urogenital red, no uropathogens present. Suggest repeat specimen if clinically indicated. 12/29/2024 10:44 AM EDT [facility] Urine Urine specimen obtained by clean catch procedure / Unknown Non-blood Collection / Unknown 12/28/2024 1:12 AM EDT 12/28/2024 1:30 AM EDT Lakisha WALTER LAB MICROBIOLOGY - GENERAL MIKE QUINTANILLA Final Result [facility] [address] [place] [address], * ECG 12 lead (12/27/2024 11:45 PM EDT) Ventricular Rate ECG 91 BPM GEMUSE Atrial Rate 91 BPM GEMUSE P-R Interval 150 ms GEMUSE QRS Duration 90 ms GEMUSE Q-T Interval 362 ms GEMUSE QTc 445 ms GEMUSE P Wave Timblin 34 degrees GEMUSE R Timblin 11 degrees GEMUSE T Tim[place] 5 degrees GEMUSE ECG Interpretation Normal sinus rhythm Minimal voltage criteria for LVH, may be normal variant ( R in aVL ) Nonspecific T wave abnormality Abnormal ECG When compared with ECG of 04-JUN-2022 13:17, Nonspecific T wave abnormality now evident in Lateral leads Confirmed by Clifton VACA JOHN ([id number]) on 12/28/2024 7:20:35 PM GEMUSE 12/27/2024 11:4 5 PM EDT 12/28/2024 7:20 PM EDT us Mejia Gold MD ECG ORDERABLES Final Result [facility] * XR Chest 2 Views (12/27/2024 8:57 [...] Signed Date: 12/28/2024 10:30 ET Workstation ID: [id number] Transcribed By: Self Edit Transcribed Date: 12/28/2024 [...] Signed Date: 12/28/2024 10:30 ET Workstation ID: [id number] Transcribed By: Self Edit Transcribed Date: 12/28/2024 10:28 ET Curt Monreal MD IMG XR PROCEDURES Final Res ult * Extractable Nuclear Antibodies Profile (12/27/2024 4:33 PM EDT) SM Ab Negative Negative LAB CHEMISTRY METHOD 01/01/2025 10:21 AM EDT [facility] SM Antibody Quant 3 <20 units LAB CHEMISTRY METHOD 01/01/2025 10:21 AM EDT [facility] HEALTH DATA ANALYST Ab Negative Negative LAB CHEMISTRY METHOD 01/01/2025 10:21 AM EDT [facility] HEALTH DATA ANALYST Antibody Quant 5 <20 units LAB CHEMISTRY METHOD 01/01/2025 10:21 AM EDT [facility] Blood Venous blood specimen / Unknown Venipuncture / Unknown 12/27/2024 4:33 PM EDT 12/27/2024 5:00 PM EDT Curt Monreal MD LAB BLOOD ORDERABLES Final Result [facility] [address] [place] [address], [place] [phone] * ALONSO IFA with titer and pattern (12/27/2024 4:33 PM EDT) Pathologist [facility] ALONSO Negative Negative 12/29/2024 12:46 PM EDT [facility] Comment:ALONSO performed by ind irect immunofluorescence (IFA) using HEp-2 substrate. Blood Venous blood specimen / Unknown Venipuncture / Unknown 12/27/2024 4:33 PM EDT 12/27/2024 5:00 PM EDT us Curt Monreal MD LAB BLOOD ORDERABLES Final Result [facility] [address] [place] [address], [place] [phone] * DNA antibody, double-stranded (12/27/2024 4:33 PM EDT) [facility] Anti-DNA Double Stranded Antibody LAB CHEMISTRY METHOD 12/30/2024 7:37 AM EDT [facility] ds DNA Ab LAB CHEMISTRY METHOD 12/30/2024 7:37 AM EDT [facility] Comment:Anti-dsDNA test not indicated when ALONSO is negative. Blood Venous blood specimen / Unknown Venipuncture / Unknown 12/27/2024 4:33 PM EDT 12/27/2024 5:00 PM EDT us Curt Monreal MD LAB BLOOD ORDERABLES Final Result [facility] [address] [place] [address], [place] [phone] * C3 complement (12/27/2024 4:33 PM EDT) [facility] C3 Complement 121 88 - 201 mg/dL LAB CHEMISTRY METHOD 12/28/2024 1:15 AM EDT [facility] Blood Venous blood specimen / Unknown Venipuncture / Unknown 12/27/2024 4:33 PM EDT 12/27/2024 5:00 PM EDT us Curt Monreal MD LAB BLOOD ORDERABLES Final Result Performing Organization Address [facility] Co de Phone Number [facility] [address] [place] [address], [place] [phone] * C4 complement (12/27/2024 4:33 PM EDT) [facility] C4 Complement 23 16 - 47 mg/dL LAB CHEMISTRY METHOD 12/28/2024 1:15 AM EDT [facility] Blood Venous blood specimen / Unknown Venipuncture / Unknown 12/27/2024 4:33 PM EDT 12/27/2024 5:00 PM EDT Curt Monreal MD LAB BLOOD ORDERABLES Final Result Performing Organization Address [facility] de Phone Number [facility] [address] [place] [address], [place] [phone] * Magnesium (12/27/2024 4:33 PM EDT) [facility] Magnesium 2.0 1.9 - 2.6 mg/dL LAB CHEMISTRY METHOD 12/27/2024 6:04 PM EDT [facility] Blood Venous blood specimen / Unknown Venipuncture / Unknown 12/27/2024 4:33 PM EDT 12/27/2024 5:00 PM EDT Mary WALTER LAB BLOOD ORDERABLES Fin al Result Performing Organization Address City/[facility]/ZIP Co de Phone Number [facility] [address] [place] [address], [place] [phone] * Creatine kinase (12/27/2024 4:33 PM EDT) [facility] Total CK 43 22 - 269 unit/L LAB CHEMISTRY METHOD 12/28/2024 1:30 AM EDT [facility] Blood Venous blood specimen / Unknown Venipuncture / Unknown 12/27/2024 4:33 PM EDT 12/27/2024 5:00 PM EDT us Curt Monreal MD LAB BLOOD ORDERABLES Final Result [facility] [address] [place] [address], * SCREENING MAMMOGRAPHY BI 2-VIEW BREAST INC [...] RESULTING AGENCY - 06/18/2020 2:05 PM EDT [id number] THINPREP PAP, IMAGED: NEGATIVE FOR SQUAMOUS INTRAEPITHELIAL LESION AND MALIGNANCY . REACTIVE CELLULAR CHANGES. ENDOMETRIAL CELLS ARE PRESENT. BINA SALEH(ASCP) (CASE SCREENED 06 14 2020) KAY DU [...] BX NEG, LMP 05/11/20, Z12.4 Mary Reilly [facility] CYTOLOGY ORDERABLES Fin al Result HISTORICAL TESTING LAB RESULTING AGENCY from Last 3 Months or Most Recently Relevant to Health Maintenance Insurance [address] [place] [address] MEDICAID - [place] Advance Directives * Full Code - Default [...] currently active code status orders. Care Teams Manager Film Relationship Specialty Start Date End Date Ivette Resendez PA [address] [place] [address] PCP - General Internal Medicine 02/13/17
== END 2025-02-23 13:55 | disposition home or self-care (01) ==
LOC: HO.RHES 13:26
PROVIDERS: PCP Physician Assistant; Visit Provider Internal Medicine Rheumatology
DX: M33.13 Other dermatomyositis without myopathy (principal); Z79.899 Other long term (current) drug therapy; M25.512 Pain in left shoulder; G89.29 Other chronic pain; M75.82 Other shoulder lesions, left shoulder; R20.2 Paresthesia of skin
CPT/HCPCS: 99214

== ENCOUNTER → 2025-02-23 13:26 | Outpatient (BNVA) | payer MEDICAID, SELFPAY | PROVIDERS: PCP Physician Assistant; Visit Provider Internal Medicine Rheumatology | DX: M25.512 Pain in left shoulder (principal); M75.82 Other shoulder lesions, left shoulder; M33.13 Other dermatomyositis without myopathy; Z79.899 Other long term (current) drug therapy; R20.2 Paresthesia of skin | CPT/HCPCS: 99212 ==